=== PATIENT | female | born 1990 | race Two or more races ===

== ENCOUNTER 2017-06-30 19:53 | Emergency (ER) | payer BC ==
[2017-06-30] MEDS ORDERED: Benztropine INJ* 1 MG/ML 2 ML AMP SLOW PUSH ONE (20:56)
[2017-06-30] MEDS: NS 0.9% 1000 ML* 3,000 ML IV ONE ×3 (21:00→23:46)
[2017-06-30 21:10] LABS: ABS Basophils 0.1 10^3/ul (0-0.2); ABS Eosinophils 0.1 10^3/ul (0-0.6); ABS Lymphocytes 1.3 10^3/ul (1.0-4.8); ABS Monocytes 1.1 10^3/ul (0-0.8); ABS Neutrophils 8.5 10^3/ul (1.5-7.7); ABS Nucleated RBC 0 10^3/ul; Hematocrit 38 % (35-47); Hemoglobin 13.1 g/dl (12.0-16.0); Lymphocyte % 11.6 % (25-47); Mean Corpuscular HGB Conc 35 g/dl (31-36); Mean Corpuscular Hemoglobin 31 pg (27-31); Mean Corpuscular Volume 90 fL (80-97); Mean Platelet Volume 8 um3 (7.4-10.4); Nucleated Red Blood Cells % 0; Platelet Count 277 10^3/ul (150-450); Red Cell Distribution Width 11 % (10.5-15); White Blood Count 11.1 10^3/ul (3.5-10.8)
[2017-06-30 21:24] LABS: Urine Appearance Clear; Urine Blood Negative (Negative); Urine Color Yellow; Urine Ketones Trace (Negative); Urine Protein Negative (Negative); Urine Specific Gravity 1.011 (1.010-1.030); Urine Urobilinogen Negative (Negative)
[2017-06-30 21:24] LABS: EGFR Non-African American 94.9 (>60)
[2017-06-30 21:25] LABS: INR 1.01 (0.77-1.02)
[2017-06-30] MEDS ORDERED: Benztropine INJ* 1 MG/ML 2 ML AMP IM ONE (21:25)
--- NOTE | 2017-06-30 21:33 | RAD ---
INDICATION: Chest pain COMPARISON: Chest x-ray July 27, 2014 TECHNIQUE: Single AP portable view of the chest was obtained. FINDINGS: Image quality is compromised due to the relative inferiority of a portable chest x-ray. The heart and mediastinum exhibit normal size and contour. The lungs are grossly clear. There is no evidence of a large pleural effusion. Visualized bones are normal for the patient's age. IMPRESSION: No radiographic evidence for acute cardiopulmonary abnormality on this portable chest x-ray.
[2017-06-30] MEDS ORDERED: Magnesium Sulfate 2 GM IV* 2 GM/50 ML BAG IVPB ONE (22:55)
[2017-06-30] MEDS ORDERED: Potassium Chlor TAB* 20 MEQ TAB.ER PO ONE (22:55)
[2017-06-30] MEDS ORDERED: Magnesium Oxide TAB* 400 MG PO ONE (23:37)
--- NOTE | 2017-06-30 23:46 | ED ---
Gerry Mayorga Jennifer, scribed for Dutch León MD on 06/30/17 at 2050 . Complex/Multi-Sys Presentation - HPI Summary HPI Summary: The patient is a 26 year old female who comes to the ED with muscle paralysis that began at 16:30 today. The history was obtained from her mother. Two weeks ago, the patient fell off a ladder and was given Zipsor for the inflammation. This morning, she took Zipsor at 10:30, then felt a headache at 12:00 and took Advil. She had a strong cup of coffee at 13:00. Beginning at 16:30, the patient began to feel strange, she made odd facial movements, her limbs felt heavy, and she felt like she was going to vomit. She couldnt walk and had to lie down. Her mother additionally complains of numbness and shortness of breath. The patient takes 160 mg of Geodon every night at 22:00. She denies smoking, drug use, and engages in occasional drinking. - History Of Current Complaint Chief Complaint: EDGeneral Time Seen by Provider: 06/30/17 20:23 Hx Obtained From: Family/Meeting Specialist - Mother Onset/Duration: Sudden Onset - Today at 16:30, Still Present Timing: Constant Severity Currently: Mild Severity Initially: Mild Associated Signs And Symptoms: Positive: Other - Muscle "paralysis", odd facial movements, heavy limbs, felt like vomiting, numbness, shortness of breath, headache - Allergies/Home Medications Allergies/Adverse Reactions: Allergies Allergy/AdvReac Type Severity Reaction Status Date / Time MS Penicillins [Penicillins] Allergy Unknown See Comment Verified 05/01/12 15:23 MS Diphenhydramine Allergy Shakes Verified 12/21/15 11:02 [From Benadryl] MS Penicillin G Allergy Hives Verified 12/21/15 11:02 [Penicillin G] MS Risperidone AdvReac Unknown See Comment Verified 05/01/12 15:22 [From Risperdal] PMH/Surg Hx/FS Hx/Imm Hx Endocrine/Hematology History: Reports: Other Endocrine/Hematological Disorders - Gamal's thryoiditis Denies: Hx Anticoagulant Therapy, Hx Diabetes Cardiovascular History: Reports: Other Cardiovascular Problems/Disorders - Hx mitral valve systolic flattening & syncope, Heart murmur. 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 11/2011 [facility] [place] - Pilonidal cystectomy - Immunization History Date of Influenza Vaccine: has not received Infectious Disease History: No Infectious Disease History: Denies: Traveled Outside the [place] in Last 30 Days - Family History Known Family History: Negative: Diabetes - Social History Alcohol Use: Weekly Substance Use Type: Reports: None Smoking Status (MU): Current Some Day Smoker Review of Systems Positive: Shortness Of Breath Positive: Vomiting - Feels like she is going to vomit Neurological: Other - limbs feel heavy, odd facial movements Positive: Headache, Numbness All Other Systems Reviewed And Are Negative: Yes Physical Exam - Summary Physical Exam Summary: General: well-appearing, no pain distress. Responds to external rub for pain. Skin: warm, color reflects adequate perfusion, dry Head: normal Eyes: pupils 4 mm reactive. ENT: normal Neck: supple, nontender Respiratory: CTA, breath sounds present Cardiovascular: RRR Abdomen: soft, nontender Bowel: present Musculoskeletal: normal, strength/ROM intact Extremities: Moved arms minimally. Feet withdraw to pain. Neurological: normal, sensory/motor intact, A&O x3 Psychological: affect/mood appropriate Triage Information Reviewed: Yes Vital Signs On Initial Exam: Initial Vitals Temp Pulse Resp BP Pulse Ox 98.2 F 100 20 130/74 100 06/30/17 20:04 06/30/17 20:04 06/30/17 20:04 06/30/17 20:04 06/30/17 20:04 Vital Signs Reviewed: Yes Diagnostics - Vital Signs Vital Signs Temp Pulse Resp BP Pulse Ox 06/30/17 20:16 99 17 100 06/30/17 20:04 98.2 F 100 20 130/74 100 - Laboratory Lab Results: Lab Results 06/30/17 06/30/17 06/30/17 Range/Units 20:56 20:56 20:56 WBC (3.5-10.8) 10^3/ul RBC (4.0-5.4) 10^6/ul Hgb (12.0-16.0) g/dl Hct (35-47) % MCV (80-97) fL MCH (27-31) pg MCHC (31-36) g/dl RDW (10.5-15) % Plt Count (150-450) 10^3/ul MPV (7.4-10.4) um3 Neut % (Auto) (38-83) % Lymph % (Auto) (25-47) % [place] % (Auto) (1-9) % Eos % (Auto) (0-6) % Baso % (Auto) (0-2) % Absolute Neuts (auto) (1.5-7.7) 10^3/ul Absolute Lymphs (auto) (1.0-4.8) 10^3/ul Absolute Monos (auto) (0-0.8) 10^3/ul Absolute Eos (auto) (0-0.6) 10^3/ul Absolute Basos (auto) (0-0.2) 10^3/ul Absolute Nucleated RBC 10^3/ul Nucleated RBC % INR (Anticoag Therapy) 1.01 (0.77-1.02) APTT 28.6 (26.0-36.3) seconds Sodium 135 (133-145) mmol/L Potassium 3.3 L (3.5-5.0) mmol/L Chloride 103 (101-111) mmol/L Carbon Dioxide 23 (22-32) mmol/L Anion Gap 9 (2-11) mmol/L BUN 11 (6-24) mg/dL Creatinine 0.75 (0.51-0.95) mg/dL Est GFR ( Amer) 122.1 (>60) Est GFR (Non-Af Amer) 94.9 (>60) BUN/Creatinine Ratio 14.7 (8-20) Glucose 106 H (70-100) mg/dL Lactic Acid (0.5-2.0) mmol/L Calcium 9.3 (8.6-10.3) mg/dL Magnesium 1.8 L (1.9-2.7) mg/dL Total Bilirubin 0.50 (0.2-1.0) mg/dL AST 14 (13-39) U/L ALT 8 (7-52) U/L Alkaline Phosphatase 59 (34-104) U/L Total Creatine Kinase 42 (10-223) U/L CK-MB (CK-2) 0.6 (0.6-6.3) ng/mL Troponin I 0.00 (<0.04) ng/mL C-Reactive Protein 3.96 (< 5.00) mg/L Total Protein 7.0 (6.4-8.9) g/dL Albumin 4.4 (3.2-5.2) g/dL Globulin 2.6 (2-4) g/dL Albumin/Globulin Ratio 1.7 (1-3) Lipase 15 (11.0-82.0) U/L TSH 0.04 L (0.34-5.60) mcIU/mL Free T4 1.16 H (0.61-1.12) ng/dL Total T3 Pending Beta HCG, Quant < 0.60 mIU/mL Urine Color Urine Appearance Urine pH (5-9) Ur Specific [place] (1.010-1.030) Urine Protein (Negative) Urine Ketones (Negative) Urine Blood (Negative) Urine Nitrate (Negative) Urine Bilirubin (Negative) Urine Urobilinogen (Negative) Ur Leukocyte Esterase (Negative) Urine Glucose (Negative) Salicylates < 2.50 (<30) mg/dL Urine Opiates Screen (None Detect) Acetaminophen < 15 mcg/mL Ur Barbiturates Screen (None Detect) Valproic Acid < 13.0 L (50-100) mcg/mL Ur Phencyclidine Scrn (None Detect) Ur Amphetamines Screen (None Detect) U Benzodiazepines Scrn (None Detect) Urine Cocaine Screen (None Detect) U Cannabinoids Screen (None Detect) Serum Alcohol < 10 (<10) mg/dL 06/30/17 06/30/17 06/30/17 Range/Units 20:56 20:56 21:05 WBC 11.1 H (3.5-10.8) 10^3/ul RBC 4.20 (4.0-5.4) 10^6/ul Hgb 13.1 (12.0-16.0) g/dl Hct 38 (35-47) % MCV 90 (80-97) fL MCH 31 (27-31) pg MCHC 35 (31-36) g/dl RDW 11 (10.5-15) % Plt Count 277 (150-450) 10^3/ul MPV 8 (7.4-10.4) um3 Neut % (Auto) 76.9 (38-83) % Lymph % (Auto) 11.6 L (25-47) % [place] % (Auto) 9.7 H (1-9) % Eos % (Auto) 1.0 (0-6) % Baso % (Auto) 0.8 (0-2) % Absolute Neuts (auto) 8.5 H (1.5-7.7) 10^3/ul Absolute Lymphs (auto) 1.3 (1.0-4.8) 10^3/ul Absolute Monos (auto) 1.1 H (0-0.8) 10^3/ul Absolute Eos (auto) 0.1 (0-0.6) 10^3/ul Absolute Basos (auto) 0.1 (0-0.2) 10^3/ul Absolute Nucleated RBC 0 10^3/ul Nucleated RBC % 0 INR (Anticoag Therapy) (0.77-1.02) APTT (26.0-36.3) seconds Sodium (133-145) mmol/L Potassium (3.5-5.0) mmol/L Chloride (101-111) mmol/L Carbon Dioxide (22-32) mmol/L Anion Gap (2-11) mmol/L BUN (6-24) mg/dL Creatinine (0.51-0.95) mg/dL Est GFR ( Amer) (>60) Est GFR (Non-Af Amer) (>60) BUN/Creatinine Ratio (8-20) Glucose (70-100) mg/dL Lactic Acid 1.2 (0.5-2.0) mmol/L Calcium (8.6-10.3) mg/dL Magnesium (1.9-2.7) mg/dL Total Bilirubin (0.2-1.0) mg/dL AST (13-39) U/L ALT (7-52) U/L Alkaline Phosphatase (34-104) U/L Total Creatine Kinase (10-223) U/L CK-MB (CK-2) (0.6-6.3) ng/mL Troponin I (<0.04) ng/mL C-Reactive Protein (< 5.00) mg/L Total Protein (6.4-8.9) g/dL Albumin (3.2-5.2) g/dL Globulin (2-4) g/dL Albumin/Globulin Ratio (1-3) Lipase (11.0-82.0) U/L TSH (0.34-5.60) mcIU/mL Free T4 (0.61-1.12) ng/dL Total T3 Beta HCG, Quant mIU/mL Urine Color Urine Appearance Urine pH (5-9) Ur Specific [place] (1.010-1.030) Urine Protein (Negative) Urine Ketones (Negative) Urine Blood (Negative) Urine Nitrate (Negative) Urine Bilirubin (Negative) Urine Urobilinogen (Negative) Ur Leukocyte Esterase (Negative) Urine Glucose (Negative) Salicylates (<30) mg/dL Urine Opiates Screen None detected (None Detect) Acetaminophen mcg/mL Ur Barbiturates Screen None detected (None Detect) Valproic Acid (50-100) mcg/mL Ur Phencyclidine Scrn None detected (None Detect) Ur Amphetamines Screen None detected (None Detect) U Benzodiazepines Scrn None detected (None Detect) Urine Cocaine Screen None detected (None Detect) U Cannabinoids Screen None detected (None Detect) Serum Alcohol (<10) mg/dL 06/30/17 Range/Units 21:05 WBC (3.5-10.8) 10^3/ul RBC (4.0-5.4) 10^6/ul Hgb (12.0-16.0) g/dl Hct (35-47) % MCV (80-97) fL MCH (27-31) pg MCHC (31-36) g/dl RDW (10.5-15) % Plt Count (150-450) 10^3/ul MPV (7.4-10.4) um3 Neut % (Auto) (38-83) % Lymph % (Auto) (25-47) % [place] % (Auto) (1-9) % Eos % (Auto) (0-6) % Baso % (Auto) (0-2) % Absolute Neuts (auto) (1.5-7.7) 10^3/ul Absolute Lymphs (auto) (1.0-4.8) 10^3/ul Absolute Monos (auto) (0-0.8) 10^3/ul Absolute Eos (auto) (0-0.6) 10^3/ul Absolute Basos (auto) (0-0.2) 10^3/ul Absolute Nucleated RBC 10^3/ul Nucleated RBC % INR (Anticoag Therapy) (0.77-1.02) APTT (26.0-36.3) seconds Sodium (133-145) mmol/L Potassium (3.5-5.0) mmol/L Chloride (101-111) mmol/L Carbon Dioxide (22-32) mmol/L Anion Gap (2-11) mmol/L BUN (6-24) mg/dL Creatinine (0.51-0.95) mg/dL Est GFR ( Amer) (>60) Est GFR (Non-Af Amer) (>60) BUN/Creatinine Ratio (8-20) Glucose (70-100) mg/dL Lactic Acid (0.5-2.0) mmol/L Calcium (8.6-10.3) mg/dL Magnesium (1.9-2.7) mg/dL Total Bilirubin (0.2-1.0) mg/dL AST (13-39) U/L ALT (7-52) U/L Alkaline Phosphatase (34-104) U/L Total Creatine Kinase (10-223) U/L CK-MB (CK-2) (0.6-6.3) ng/mL Troponin I (<0.04) ng/mL C-Reactive Protein (< 5.00) mg/L Total Protein (6.4-8.9) g/dL Albumin (3.2-5.2) g/dL Globulin (2-4) g/dL Albumin/Globulin Ratio (1-3) Lipase (11.0-82.0) U/L TSH (0.34-5.60) mcIU/mL Free T4 (0.61-1.12) ng/dL Total T3 Beta HCG, Quant mIU/mL Urine Color Yellow Urine Appearance Clear Urine pH 7.0 (5-9) Ur Specific [place] 1.011 (1.010-1.030) Urine Protein Negative (Negative) Urine Ketones Trace H (Negative) Urine Blood Negative (Negative) Urine Nitrate Negative (Negative) Urine Bilirubin Negative (Negative) Urine Urobilinogen Negative (Negative) Ur Leukocyte Esterase Negative (Negative) Urine Glucose Negative (Negative) Salicylates (<30) mg/dL Urine Opiates Screen (None Detect) Acetaminophen mcg/mL Ur Barbiturates Screen (None Detect) Valproic Acid (50-100) mcg/mL Ur Phencyclidine Scrn (None Detect) Ur Amphetamines Screen (None Detect) U Benzodiazepines Scrn (None Detect) Urine Cocaine Screen (None Detect) U Cannabinoids Screen (None Detect) Serum Alcohol (<10) mg/dL Result Diagrams: 06/30/17 20:56 06/30/17 20:56 Lab Statement: Any lab studies that have been ordered have been reviewed, and results considered in the medical decision making process. - Radiology CXR Xray Interpretation: No Acute Changes - No radiographic evidence for acute cardiopulmonary abnormality on this portable chest x-ray. Dr. León has reviewed this report. Radiology Interpretation Completed By: Radiologist - EKG 20:56 Cardiac Rate: Tachycardia EKG Rhythm: Sinus Tachycardia - [address] Segment: Normal EKG Interpretation: Prolonged QT interval with QTC 596 Complex Multi-Symp Course/Dx Course Of Treatment: BP noted and advised to follow up with PCP. Allergies noted. Medications reviewed. PATIENT IMPROVED WITH IV FLUIDS. FOR THE POSSIBILITY OF A DYSTONIC REACTION, COGENTIN WAS ORDERED (PATIENT IS ALLERGIC TO BENADRYL); THE PATIENT DECLINED THE COGENTIN. WHEN THE PATIENT HAD TO URINATE, SHE HAD NO NEUROLOGIC DEFICIT. IMMEDIATELY AFTER URINATING, HER WEAKNESS SYMPTOMS RETURNED. YOLANDA WAS WITH HER DYING GRANDMOTHER TODAY. P WAVES WERE SEEN ON THE MONITOR WHEN THE HEART RATE WAS LESS THAN 100BPM. NO CRITICAL CARE TIME. - Diagnoses Provider Diagnoses: Blood pressure elevated without history of HTN, Altered mental state, Weakness Discharge - Discharge Plan Condition: Stable Disposition: HOME Patient Education Materials: Altered Mental Status (ED), Weakness (ED) Referrals: Ratna Ye MD [Primary Care Provider] - Additional Instructions: FOLLOW UP WITH YOUR DOCTOR. RETURN TO THE EMERGENCY DEPARTMENT FOR ANY WORSENING OF YOUR CONDITION OR QUESTIONS OR CONCERNS. Your blood pressure was elevated during todays visit; please follow up with your primary care provider within a week for further evaluation. The documentation as recorded by the Gerry davalos Jennifer accurately reflects the service I personally performed and the decisions made by me, Dutch León MD.
[2017-07-01 01:22] VITALS: BP 125/79
== END 2017-07-01 00:55 | disposition home or self-care (01) ==
LOC: ED 19:53
DX: R03.0 Elevated blood-pressure reading, without diagnosis of hypertension (principal); R41.82 Altered mental status, unspecified; R53.1 Weakness; F17.200 Nicotine dependence, unspecified, uncomplicated
CPT/HCPCS: 36415; 71045; 80053; 80164; 80307; 80320; 80329; 81003; 82550; 82553; 83605; 83690; 83735; 84439; 84443; 84479; 84484; 84702; 85025; 85610; 85730; 86140; 93005; 96360; 96372; 99285; A9270-GY; G0480; J0515

== ENCOUNTER 2017-07-01 17:21 | Emergency (ER) | payer BC ==
[2017-07-01 18:25] LABS: ABS Basophils 0.1 10^3/ul (0-0.2); ABS Eosinophils 0.2 10^3/ul (0-0.6); ABS Lymphocytes 1.4 10^3/ul (1.0-4.8); ABS Monocytes 0.9 10^3/ul (0-0.8); ABS Nucleated RBC 0 10^3/ul; Eosinophil % 2.9 % (0-6); Hematocrit 38 % (35-47); Hemoglobin 13.2 g/dl (12.0-16.0); Lymphocyte % 18.7 % (25-47); Mean Corpuscular HGB Conc 35 g/dl (31-36); Mean Corpuscular Hemoglobin 32 pg (27-31); Mean Corpuscular Volume 91 fL (80-97); Mean Platelet Volume 8 um3 (7.4-10.4); Nucleated Red Blood Cells % 0; Platelet Count 255 10^3/ul (150-450); Red Blood Count 4.18 10^6/ul (4.0-5.4); Red Cell Distribution Width 12 % (10.5-15); White Blood Count 7.7 10^3/ul (3.5-10.8)
[2017-07-01 18:49] LABS: EGFR Non-African American 102.8 (>60)
[2017-07-01 19:18] LABS: Urine Appearance Clear; Urine Blood Negative (Negative); Urine Color Straw; Urine Ketones Negative (Negative); Urine Protein Negative (Negative); Urine Specific Gravity 1.004 (1.010-1.030); Urine Urobilinogen Negative (Negative)
--- NOTE | 2017-07-01 20:39 | RAD ---
INDICATION: "Possible seizures, measured reaction, possible issues with IUD". Requisition notes concussion one week earlier after slip and fall injury. COMPARISON: CT of the brain June 22, 2017 TECHNIQUE: Contiguous axial sections of the brain were obtained from the skull base to the vertex without contrast. FINDINGS: The ventricles, cisterns and sulci are within normal limits. The [place]-white matter differentiation is adequately maintained and there is no sulcal effacement. No significant focal abnormality or mass effect is present. There is no evidence for intracranial hemorrhage. No significant focal osseous abnormality is present. There is very mild mucosal thickening of the visualized maxillary sinuses. The remaining paranasal sinuses are well-aerated. The mastoid air cells are well aerated bilaterally. IMPRESSION: No CT evidence of acute intracranial abnormality.
[2017-07-01] MEDS ORDERED: Ziprasidone CAP* 80 MG PO ONE (21:13)
[2017-07-01 22:46] VITALS: BP 114/58
--- NOTE | 2017-07-13 12:03 | ED ---
Ann Marie Mayorga Gabriel, scribed for Aurelio Glasgow MD on 07/01/17 at 1944 . Neurological HPI - HPI Summary HPI Summary: This patient is a 26 year old F BIBA to [facility] accompanied by her mother s/p possible seizure. Patient reports eye pressure, needles in the eyes, blurred vision, GASPAR, foggy memory, difficulty speaking, coldness inside of her chest, weakness in her extremities, pressure in her ears, trouble hearing, dizziness, CP, and tingling in her fingers. Symptoms originated when the patient fell off a ladder while she was changing a light bulb and hit her head. She was given a CT that showed no significant abnormalities although a Xray showed cervical spine spasms so she was given Zipsor. Yesterday early in the day the patient took Advil two hours after her Zipsor along with coffee and they believe this could have contributed to the following symptoms. Around 1630 yesterday the patient had weakness and wasnt able to walk then later that night while waiting for her grandmother to pass she started convulsing and fell off of a chair. She was brought into the ED and discharged but they do not feel like she was properly evaluated. Patient has had one prior seizure due to penicillin but has never had one besides that. The pt describes the seizure as whole body tremors while being unable to move and feeling like she was being pinned to the mattress. Also during the episode she states her head was twitching to one side and she had no control over her body. This occurred at 1900 last night. After being discharged her mother states she was woken up by her daughter making a loud eeee noise and displaying additional seizure activity. They believe she may be experiencing these symptoms due to increased intracranial pressure and would like that checked. Pt has not taking her Geodon for two days due to all that has been happening. - History of Current Complaint Chief Complaint: EDSeizure Stated Complaint: POSSIBLE MED REACTION Time Seen by Provider: 07/01/17 19:23 Hx Obtained From: Patient Onset/Duration: Resolved Timing: Constant Onset Severity: Moderate Current Severity: None Pain Intensity: 0 Pain Scale Used: 0-10 Numeric Syncope Context: Witnessed, Loss of Consciousness: Yes Alleviating: Spontanious Resolution Associated Signs and Symptoms: Positive: Numbness - eye pressure, needles in the eyes, blurred vision, GASPAR, foggy memory, difficulty speaking, coldness inside of her chest, weakness in her extremities, pressure in her ears, trouble hearing, dizziness, CP, and tingling in her fingers. - Additional Pertinent History Primary Care Physician: Dr. Lr - Allergy/Home Medications Allergies/Adverse Reactions: Allergies Allergy/AdvReac Type Severity Reaction Status Date / Time MS Penicillins [Penicillins] Allergy Unknown See Comment Verified 05/01/12 15:23 MS Diphenhydramine Allergy Shakes Verified 12/21/15 11:02 [From Benadryl] MS Penicillin G Allergy Hives Verified 12/21/15 11:02 [Penicillin G] MS Risperidone AdvReac Unknown See Comment Verified 05/01/12 15:22 [From Risperdal] PMH/Surg Hx/FS Hx/Imm Hx Endocrine/Hematology History: Reports: Hx Thyroid Disease, Other Endocrine/ Hematological Disorders - Gamal's thryoiditis Denies: Hx Anticoagulant Therapy, Hx Diabetes Cardiovascular History: Reports: Other Cardiovascular Problems/Disorders - Hx mitral valve systolic flattening & syncope, Heart murmur. 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 11/2011 [facility] - Pilonidal cystectomy - Immunization History Date of Influenza Vaccine: has not received Infectious Disease History: No Infectious Disease History: Denies: Traveled Outside the [place] in Last 30 Days - Family History Known Family History: Negative: Diabetes, Respiratory Disease, Seizure Disorder - Social History Occupation: Student Lives: With Family Alcohol Use: Weekly Substance Use Type: Reports: None Smoking Status (MU): Current Some Day Smoker Review of Systems Negative: Fever, Chills Eyes: Other - trouble hearing Positive: Other - eye pressure, needles in the eyes, blurred vision Positive: Other - pressure in ears . Negative: Sore Throat Positive: Chest Pain - coldness inside of her chest Negative: Shortness Of Breath, Cough Negative: Abdominal Pain, Vomiting, Nausea Negative: dysuria, hematuria Negative: Myalgia, Edema Negative: Rash Neurological: Other - GASPAR, foggy memory, difficulty speaking Positive: Weakness, Paresthesia All Other Systems Reviewed And Are Negative: Yes Physical Exam - Summary Physical Exam Summary: Constitutional: Well-developed, Well-nourished, Alert. (-) Distressed Multiple pseudo seizures during exam repeating words and arching her back, no postictal phase Skin: Warm, Dry HENT: Normocephalic; Atraumatic Eyes: Conjunctiva normal, Optic discs are sharp and nice Neck: Musculoskeletal ROM normal neck. (-) JVD, (-) Stridor, (-) Tracheal deviation Cardio: Rhythm regular, rate normal, Heart sounds normal; Intact distal pulses; The pedal pulses are 2+ and symmetric. Radial pulses are 2+ and symmetric. (-) Murmur Pulmonary/Chest wall: Effort normal. (-) Respiratory distress, (-) Wheezes, (-) Rales Abd: Soft, (-) Tenderness, (-) Distension, (-) Guarding, (-) Rebound Musculoskeletal: (-) Edema Lymph: (-) Cervical adenopathy Neuro: Alert, Oriented x3 Psych: Mood and affect Normal Triage Information Reviewed: Yes Vital Signs On Initial Exam: Initial Vitals Temp Pulse Resp BP Pulse Ox 98.5 F 86 16 122/75 98 07/01/17 17:34 07/01/17 17:34 07/01/17 17:34 07/01/17 17:34 07/01/17 17:34 Vital Signs Reviewed: Yes Diagnostics - Vital Signs Vital Signs Temp Pulse Resp BP Pulse Ox 07/01/17 17:34 98.5 F 86 16 122/75 98 - Laboratory Lab Results: Lab Results 07/01/17 07/01/17 07/01/17 Range/Units 17:46 17:46 18:11 WBC (3.5-10.8) 10^3/ul RBC (4.0-5.4) 10^6/ul Hgb (12.0-16.0) g/dl Hct (35-47) % MCV (80-97) fL MCH (27-31) pg MCHC (31-36) g/dl RDW (10.5-15) % Plt Count (150-450) 10^3/ul MPV (7.4-10.4) um3 Neut % (Auto) (38-83) % Lymph % (Auto) (25-47) % Stevens % (Auto) (1-9) % Eos % (Auto) (0-6) % Baso % (Auto) (0-2) % Absolute Neuts (auto) (1.5-7.7) 10^3/ul Absolute Lymphs (auto) (1.0-4.8) 10^3/ul Absolute Monos (auto) (0-0.8) 10^3/ul Absolute Eos (auto) (0-0.6) 10^3/ul Absolute Basos (auto) (0-0.2) 10^3/ul Absolute Nucleated RBC 10^3/ul Nucleated RBC % Sodium 135 (133-145) mmol/L Potassium 3.5 (3.5-5.0) mmol/L Chloride 106 (101-111) mmol/L Carbon Dioxide 21 L (22-32) mmol/L Anion Gap 8 (2-11) mmol/L BUN 8 (6-24) mg/dL Creatinine 0.70 (0.51-0.95) mg/dL Est GFR ( Amer) 132.2 (>60) Est GFR (Non-Af Amer) 102.8 (>60) BUN/Creatinine Ratio 11.4 (8-20) Glucose 95 (70-100) mg/dL Calcium 9.5 (8.6-10.3) mg/dL Total Bilirubin 0.70 (0.2-1.0) mg/dL AST 12 L (13-39) U/L ALT 9 (7-52) U/L Alkaline Phosphatase 52 (34-104) U/L Total Protein 7.0 (6.4-8.9) g/dL Albumin 4.3 (3.2-5.2) g/dL Globulin 2.7 (2-4) g/dL Albumin/Globulin Ratio 1.6 (1-3) TSH 0.12 L (0.34-5.60) mcIU/mL Urine Color Straw Urine Appearance Clear Urine pH 6.0 (5-9) Ur Specific [place] 1.004 L (1.010-1.030) Urine Protein Negative (Negative) Urine Ketones Negative (Negative) Urine Blood Negative (Negative) Urine Nitrate Negative (Negative) Urine Bilirubin Negative (Negative) Urine Urobilinogen Negative (Negative) Ur Leukocyte Esterase Trace H (Negative) Urine WBC (Auto) Trace(0-5/hpf) (Absent) Urine RBC (Auto) Absent (Absent) Ur Squamous Epith Cells Present H (Absent) Urine Bacteria Absent (Absent) Urine Glucose Negative (Negative) Salicylates < 2.50 (<30) mg/dL Urine Opiates Screen None detected (None Detect) Acetaminophen < 15 mcg/mL Ur Barbiturates Screen None detected (None Detect) Valproic Acid < 13.0 L (50-100) mcg/mL Ur Phencyclidine Scrn None detected (None Detect) Ur Amphetamines Screen None detected (None Detect) U Benzodiazepines Scrn None detected (None Detect) Urine Cocaine Screen None detected (None Detect) U Cannabinoids Screen None detected (None Detect) Serum Alcohol < 10 (<10) mg/dL 07/01/17 Range/Units 18:11 WBC 7.7 (3.5-10.8) 10^3/ul RBC 4.18 (4.0-5.4) 10^6/ul Hgb 13.2 (12.0-16.0) g/dl Hct 38 (35-47) % MCV 91 (80-97) fL MCH 32 H (27-31) pg MCHC 35 (31-36) g/dl RDW 12 (10.5-15) % Plt Count 255 (150-450) 10^3/ul MPV 8 (7.4-10.4) um3 Neut % (Auto) 65.8 (38-83) % Lymph % (Auto) 18.7 L (25-47) % Stevens % (Auto) 11.8 H (1-9) % Eos % (Auto) 2.9 (0-6) % Baso % (Auto) 0.8 (0-2) % Absolute Neuts (auto) 5.0 (1.5-7.7) 10^3/ul Absolute Lymphs (auto) 1.4 (1.0-4.8) 10^3/ul Absolute Monos (auto) 0.9 H (0-0.8) 10^3/ul Absolute Eos (auto) 0.2 (0-0.6) 10^3/ul Absolute Basos (auto) 0.1 (0-0.2) 10^3/ul Absolute Nucleated RBC 0 10^3/ul Nucleated RBC % 0 Sodium (133-145) mmol/L Potassium (3.5-5.0) mmol/L Chloride (101-111) mmol/L Carbon Dioxide (22-32) mmol/L Anion Gap (2-11) mmol/L BUN (6-24) mg/dL Creatinine (0.51-0.95) mg/dL Est GFR ( Amer) (>60) Est GFR (Non-Af Amer) (>60) BUN/Creatinine Ratio (8-20) Glucose (70-100) mg/dL Calcium (8.6-10.3) mg/dL Total Bilirubin (0.2-1.0) mg/dL AST (13-39) U/L ALT (7-52) U/L Alkaline Phosphatase (34-104) U/L Total Protein (6.4-8.9) g/dL Albumin (3.2-5.2) g/dL Globulin (2-4) g/dL Albumin/Globulin Ratio (1-3) TSH (0.34-5.60) mcIU/mL Urine Color Urine Appearance Urine pH (5-9) Ur Specific [place] (1.010-1.030) Urine Protein (Negative) Urine Ketones (Negative) Urine Blood (Negative) Urine Nitrate (Negative) Urine Bilirubin (Negative) Urine Urobilinogen (Negative) Ur Leukocyte Esterase (Negative) Urine WBC (Auto) (Absent) Urine RBC (Auto) (Absent) Ur Squamous Epith Cells (Absent) Urine Bacteria (Absent) Urine Glucose (Negative) Salicylates (<30) mg/dL Urine Opiates Screen (None Detect) Acetaminophen mcg/mL Ur Barbiturates Screen (None Detect) Valproic Acid (50-100) mcg/mL Ur Phencyclidine Scrn (None Detect) Ur Amphetamines Screen (None Detect) U Benzodiazepines Scrn (None Detect) Urine Cocaine Screen (None Detect) U Cannabinoids Screen (None Detect) Serum Alcohol (<10) mg/dL Result Diagrams: 07/01/17 18:11 07/01/17 18:11 Lab Statement: Any lab studies that have been ordered have been reviewed, and results considered in the medical decision making process. - CT CT Brain CT Interpretation Completed By: Radiologist - No CT evidence of acute intracranial abnormality. ED physician has reviewed this radiology report. Re-Evaluation - Re-Evaluation First Eval Re-Evaluation Time: 21:15 Change: Unchanged - Discussed CT results with patient and her mother. I discussed the possibility of a MHE for the patient and how it would be very helpful, they have both agreed this is the best route. Second Eval Re-Evaluation Time: 22:36 Change: Unchanged - Patient and mother no longer wish to have MHE and she is asking why she is being held against her will. I informed her she is not and then she requested to go home. Course/Dx - Course Assessment/Plan: This patient is a 26 year old F BIBA to [facility] accompanied by her mother s/p possible seizure. Patient reports eye pressure, needles in the eyes, blurred vision, GASPAR, foggy memory, difficulty speaking, coldness inside of her chest, weakness in her extremities, pressure in her ears, trouble hearing, dizziness, CP, and tingling in her fingers. Symptoms originated when the patient fell off a ladder while she was changing a light bulb and hit her head. She was given a CT that showed no significant abnormalities although a Xray showed cervical spine spasms so she was given Zipsor. Yesterday early in the day the patient took Advil two hours after her Zipsor along with coffee and they believe this could have contributed to the following symptoms. Around 1630 yesterday the patient had weakness and wasnt able to walk then later that night while waiting for her grandmother to pass she started convulsing and fell off of a chair. She was brought into the ED and discharged but they do not feel like she was properly evaluated. Patient has had one prior seizure due to penicillin but has never had one besides that. The pt describes the seizure as whole body tremors while being unable to move and feeling like she was being pinned to the mattress. Also during the episode she states her head was twitching to one side and she had no control over her body. This occurred at 1900 last night. After being discharged her mother states she was woken up by her daughter making a loud eeee noise and displaying additional seizure activity. They believe she may be experiencing these symptoms due to increased intracranial pressure and would like that checked. Pt has not taking her Geodon for two days due to all that has been happening. CT brain reveals, per radiologist, No CT evidence of acute intracranial abnormality. I informed the patient and her mother that she was most likely having pseudo seizures because she was able to talk, there was no recovery period, and no postictal period. Test results with no significant abnormalities. UA/bloodwork obtained. In the ED course the patient was given Geodon. Dx pseudo seizures. Patient will be discharged and follow up from PCP and psychiatrist. The patient is agreeable with this plan. - Diagnoses Provider Diagnoses: Pseudoseizures Discharge - Discharge Plan Condition: Stable Disposition: HOME Patient Education Materials: Epilepsy (ED) Referrals: Ratna Ye MD [Primary Care Provider] - 3 Days Additional Instructions: Please follow up with your private psychiatrists. RETURN TO EMERGENCY DEPARTMENT FOR ANY NEW OR WORSENING SYMPTOMS The documentation as recorded by the Ann Marie davalos Gabriel accurately reflects the service I personally performed and the decisions made by me, Aurelio Glasgow MD.
== END 2017-07-01 22:51 | disposition home or self-care (01) ==
LOC: ED 17:21
DX: F44.5 Conversion disorder with seizures or convulsions (principal); F17.200 Nicotine dependence, unspecified, uncomplicated; E06.3 Autoimmune thyroiditis; Z88.0 Allergy status to penicillin; M41.9 Scoliosis, unspecified
CPT/HCPCS: 36415; 70450; 80053; 80164; 80307; 80320; 80329; 81003; 81015; 84443; 85025; 87086; 99283; A9270-GY; G0480

== ENCOUNTER 2017-11-15 09:57 | Inpatient (IN) | payer BC ==
[2017-11-15 11:26] LABS: ABS Basophils 0 10^3/ul (0-0.2); ABS Eosinophils 0 10^3/ul (0-0.6); ABS Lymphocytes 0.7 10^3/ul (1.0-4.8); ABS Monocytes 1.1 10^3/ul (0-0.8); ABS Neutrophils 10.7 10^3/ul (1.5-7.7); ABS Nucleated RBC 0 10^3/ul; Eosinophil % 0.1 % (0-6); Hematocrit 39 % (35-47); Hemoglobin 13.6 g/dl (12.0-16.0); Lymphocyte % 5.9 % (25-47); Mean Corpuscular HGB Conc 35 g/dl (31-36); Mean Corpuscular Hemoglobin 33 pg (27-31); Mean Corpuscular Volume 93 fL (80-97); Mean Platelet Volume 9.2 um3 (7.4-10.4); Nucleated Red Blood Cells % 0.1; Platelet Count 249 10^3/ul (150-450); Red Blood Count 4.18 10^6/ul (4.00-5.40); Red Cell Distribution Width 13 % (10.5-15); White Blood Count 12.6 10^3/ul (3.5-10.8)
[2017-11-15 11:37] LABS: EGFR Non-African American 78.3 (>60)
[2017-11-15 11:45] LABS: Urine Appearance Cloudy; Urine Blood Negative (Negative); Urine Color Yellow; Urine Ketones Trace (Negative); Urine Protein 2+(100 mg/dL) (Negative); Urine Red Blood Cell 2+(6-10/hpf) (Absent); Urine Urobilinogen Negative (Negative); Urine White Blood Cell 2+(11-20/hpf) (Absent)
[2017-11-15] MEDS ORDERED: Potassium Chlor TAB* 20 MEQ TAB.ER PO ONE (12:26)
[2017-11-15] MEDS ORDERED: NS 0.9% 1000 ML* 1,000 ML IV ONE (12:26)
[2017-11-15] MEDS ORDERED: LORazepam TAB(*) 1 MG PO ONE (12:42)
[2017-11-15] MEDS ORDERED: Haloperidol TAB* 5 MG PO ONE (17:53)
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
[2017-11-15] MEDS ORDERED: Haloperidol INJ IV/IM* 5 MG/ML AMP IM ONE (19:27)
--- NOTE | 2017-11-15 19:39 | ED ---
Re-Evaluation - Re-Evaluation First Eval Re-Evaluation Time: 12:31 Change: Worse Comment: Pt is agitated and is attempting to leave. Security is outside of room. Course/Dx - Course Course Of Treatment: Pt's psychosis is escalating and she is unamenable to verbal redirection and will not take oral antipsychotic. Have ordered IM haldol as she is on a trajectory to full blown agitation and would be better served to be medicated now. - Diagnoses Provider Diagnoses: Mental health problem Discharge - Sign-Out/Discharge Documenting (check all that apply): Receiving Sign-Out Signing out patient TO: Terrance Hampton Receiving patient FROM: Heather Bolden - Discharge Plan Condition: Guarded Referrals: Ratna Ye MD [Primary Care Provider] - - Billing Disposition and Condition Condition: GUARDED
[2017-11-16] MEDS ORDERED: Haloperidol INJ IV/IM* 5 MG/ML AMP IM ONE (01:02)
[2017-11-16] MEDS ORDERED: Haloperidol TAB* 5 MG PO ONE (01:04)
[2017-11-16] MEDS ORDERED: Doxycycline (NF) 100 MG TAB PO ONE (07:46)
[2017-11-16] MEDS ORDERED: DOXYcycline CAP(*) 100 MG PO ONE (09:00)
--- NOTE | 2017-11-16 09:07 | PN ---
ED Flex Patient Progress Note Date of Service: 11/16/17 Subjective: ED Flex Day #1 for this 27 y.o. single, female with a known history of bipolar disorder who presents with confusion and guy. Objective: Disorganized, hyperverbal young female, confused, disoriented Assessment: Bipolar DO, Type I, MRE manic, severe with psychotic features Plan: Admit to the [facility] pending female bed availability Vital Signs Temp Pulse Resp BP Pulse Ox 98.7 F 101 17 111/64 99 11/15/17 20:34 11/15/17 20:34 11/15/17 20:34 11/15/17 20:34 11/15/17 20:34 Lab Results - Entire Visit 11/15/17 11/15/17 11/15/17 11:06 11:06 10:55 WBC 12.6 H RBC 4.18 Hgb 13.6 Hct 39 MCV 93 MCH 33 H MCHC 35 RDW 13 Plt Count 249 MPV 9.2 Neut % (Auto) 84.9 H Lymph % (Auto) 5.9 L [place] % (Auto) 8.8 H Eos % (Auto) 0.1 Baso % (Auto) 0.3 Absolute Neuts (auto) 10.7 H Absolute Lymphs (auto) 0.7 L Absolute Monos (auto) 1.1 H Absolute Eos (auto) 0 Absolute Basos (auto) 0 Absolute Nucleated RBC 0 Nucleated RBC % 0.1 Sodium 143 Potassium 3.2 L Chloride 108 Carbon Dioxide 24 Anion Gap 11 BUN 8 Creatinine 0.88 Est GFR ( Amer) 94.7 Est GFR (Non-Af Amer) 78.3 BUN/Creatinine Ratio 9.1 Glucose 104 H Calcium 9.9 Total Bilirubin 1.10 H AST 20 ALT 15 Alkaline Phosphatase 60 Total Protein 6.9 Albumin 4.6 Globulin 2.3 Albumin/Globulin Ratio 2.0 TSH 5.59 Beta HCG, Quant < 0.60 Urine Color Urine Appearance Urine pH Ur Specific [place] Urine Protein Urine Ketones Urine Blood Urine Nitrate Urine Bilirubin Urine Urobilinogen Ur Leukocyte Esterase Urine WBC (Auto) Urine RBC (Auto) Ur Squamous Epith Cells Calcium Oxalate Crystal Urine Bacteria Hyaline Casts Urine Glucose Salicylates < 2.50 Urine Opiates Screen None detected Acetaminophen < 15 Ur Barbiturates Screen None detected Ur Phencyclidine Scrn None detected Ur Amphetamines Screen None detected U Benzodiazepines Scrn None detected Urine Cocaine Screen None detected U Cannabinoids Screen None detected Serum Alcohol < 10 11/15/17 10:55 WBC RBC Hgb Hct MCV MCH MCHC RDW Plt Count MPV Neut % (Auto) Lymph % (Auto) [place] % (Auto) Eos % (Auto) Baso % (Auto) Absolute Neuts (auto) Absolute Lymphs (auto) Absolute Monos (auto) Absolute Eos (auto) Absolute Basos (auto) Absolute Nucleated RBC Nucleated RBC % Sodium Potassium Chloride Carbon Dioxide Anion Gap BUN Creatinine Est GFR ( Amer) Est GFR (Non-Af Amer) BUN/Creatinine Ratio Glucose Calcium Total Bilirubin AST ALT Alkaline Phosphatase Total Protein Albumin Globulin Albumin/Globulin Ratio TSH Beta HCG, Quant Urine Color Yellow Urine Appearance Cloudy Urine pH 6.0 Ur Specific [place] 1.020 Urine Protein 2+(100 mg/dl) A Urine Ketones Trace A Urine Blood Negative Urine Nitrate Negative Urine Bilirubin Negative Urine Urobilinogen Negative Ur Leukocyte Esterase Negative Urine WBC (Auto) 2+(11-20/hpf) A Urine RBC (Auto) 2+(6-10/hpf) A Ur Squamous Epith Cells Present A Calcium Oxalate Crystal Present A Urine Bacteria Absent Hyaline Casts Present A Urine Glucose 1+(50 mg/dl) A Salicylates Urine Opiates Screen Acetaminophen Ur Barbiturates Screen Ur Phencyclidine Scrn Ur Amphetamines Screen U Benzodiazepines Scrn Urine Cocaine Screen U Cannabinoids Screen Serum Alcohol
[2017-11-16] MEDS ORDERED: Zolpidem TAB* 10 MG PO ONE (09:58)
--- NOTE | 2017-11-16 14:10 | ED ---
I, Scout Jesus, scribed for Yosvany Garvey MD on 11/16/17 at 0744 . Progress - Progress Note Progress Note: The patient was signed out from Dr. Hampton awaiting mental health transfer. I evaluated the patient in flex. There was a tick on her back and one on the ABD, hair will be checked. Ticks removed with tick twister After MHE by Dr. Snyder pt will be admitted for bipolar disorder with psychotic features. - Consult/PCP Time Called: 16:20 - Additional EKG/XRAY/Consults EKG #2: NSR - at 91 BPM, nml axis, nml intervals, nml ST Re-Evaluation - Re-Evaluation First Eval Re-Evaluation Time: 12:31 Change: Worse Comment: Pt is agitated and is attempting to leave. Security is outside of room. Course/Dx - Course Course Of Treatment: Patient with acute psychosis with history of bipolar. She spent the last couple days in the [facility]. To take sure removed from her body. She underwent psychiatric evaluation and was accepted for admission by the psychiatrist. She has multiple abrasions from being in the [facility]. Given 2 tick bites gave prophylactic doxycycline and ordered Lyme. - Diagnoses Provider Diagnoses: Bipolar affective psychosis, Tick bite of abdomen, Tick bite of back, Abrasions of multiple sites Discharge - Sign-Out/Discharge Documenting (check all that apply): Discharge/Admit/Transfer, Receiving Sign-Out Receiving patient FROM: Terrance Hampton - Discharge Plan Condition: Fair [facility] [place] Referrals: Ratna Ye MD [Primary Care Provider] - - Billing Disposition and Condition Condition: FAIR Disposition: Psychiatric Facility [facility] [place] The documentation as recorded by the Ann Marie davalos Gabriel accurately reflects the service I personally performed and the decisions made by me, Yosvany Garvey MD.
[2017-11-16] MEDS ORDERED: Tetan/Diph/Pertus SYR(Tdap)* 0.5 ML SYR(BOOSTRIX) use SYR IM ONE (14:16)
[2017-11-16] MEDS ORDERED: Al Hydrox/Mg Hydrox/Simet LIQ* 30 ML UDC PO PRN (14:35)
[2017-11-16] MEDS ORDERED: chlorproMAZINE TAB* 100 MG PO PRN (15:24)
[2017-11-16] MEDS: Gabapentin CAP(*) 300 MG PO SCH (20:35)
[2017-11-16] MEDS: Docusate CAP* 100 MG PO SCH (20:36)
[2017-11-16] MEDS: Mirtazapine TAB* 15 MG PO SCH (20:36)
[2017-11-16] MEDS: DOXYcycline CAP(*) 100 MG PO SCH (20:36)
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
[2017-11-17] MEDS: DOXYcycline CAP(*) 100 MG PO SCH ×2 (10:13→21:16)
[2017-11-17] MEDS: Docusate CAP* 100 MG PO SCH ×2 (10:13→21:18)
[2017-11-17] MEDS: Vitamin THERAPEUTIC TAB PO SCH (10:13)
[2017-11-17] MEDS: Gabapentin CAP(*) 300 MG PO SCH ×2 (10:13→21:15)
--- NOTE | 2017-11-17 14:38 | PN ---
Subjective - Subjective Date of Service: 11/17/17 Service Type: 30296 Hosp care 15 min low complexity Subjective: Lita is seen in weekend coverage for NPP, Sasha Frank. The patient is difficult to arouse from sleep in her bed she has even more difficulty communicating her thoughts, appearing to be bizarre and confused. "I have two emails. I mean I'm asking...do I have two emails?" Very little of anything of any real substance can be gleaned from her speech, which is marked by increased latency and halting pace. She asked staff earlier for STD testing but cannot tell me if she's had risky sexual behaviors or substance misuse. She is allowed to go back to sleep. Objective - Appearance Appearance: Well Developed/Nourished Dysmorphic Features: No Hygiene: Normal Grooming: Disheveled - Behavior Psychomotor Activities: Abnormal-Decreased Exhibits Abnormal Movement: No - Attitude and Relatedness Attitude and Relatedness: Psychotically Related Eye Contact: Poor - Speech Quality: Unpressured Latencies: Long Quantity: Terse - Mood Patient's Decription of Mood: "Anxious" - Affect Observed Affect: Tense Affect Consistent with: Dysphoria - Thought Process Patient's Thought Process: Disorganized Thought Content: Yes Paranoid Ideation, No Passive Wish, No Suicidal Planning, No Homicidal Ideation - Sensorium Experiencing Hallucinations: No, Sensorium is Clear Type of Hallucinations: Visual: No, Auditory: No, Command: No - Level of Consciousness Level of Consciousness: Lethargic Orientation: Yes Intact, Yes Orientated to Time, Yes Orientated to Place, Yes Orientated to Person - Impulse Control Impulse Control: Poor - Insight and Judgement Insight and Judgement: Impaired - Group Participation Particating in Group Activities: No - Medication Management Medication Management Adherence: Yes Assessment - Assessment Merits Inpatient Hospitalization: For Immediate Safety, For Stabilization Inpatient DSM-V Dx: F29 Clinical Impression: 27 y.o. single, female with a documented history of bipolar disorder, PMDD and PTSD arrives on an involuntary basis with bizarre, confused and paranoid behavior resulting in an inability to meet her own needs in a less restrictive setting. Plan - Plan Treatment Plan: Name: LITA STANFORD Birthdate: 1990 [id number] The patient is on a regimen of scheduled gabapentin, prn chlorpromazine and prn mirtazapine. She remains quite impaired and would be unsafe for discharge back to the community in this condition. Continue to treat on a supervised, structured and secured setting. I will order STD testing per her earlier request. Continued Medication Management: Start Medication Medications: Current Medications Acetaminophen (Tylenol Tab*) 650 mg PO Q4H PRN PRN Reason: for pain; or Temp >101 F Al Hydrox/Mg Hydrox/Simethicone (Maalox Plus*) 30 ml PO Q4H PRN PRN Reason: INDIGESTION Chlorpromazine HCl (Thorazine Tab*) 100 mg PO Q6H PRN PRN Reason: AGITATION Last Admin: 11/17/17 11:10 Dose: 100 mg Docusate Sodium (Colace Cap*) 100 mg PO BID [facility] Last Admin: 11/17/17 10:13 Dose: 100 mg Doxycycline Hyclate (Vibramycin Cap(*)) 100 mg PO BID [facility] Stop: 11/26/17 20:59 Last Admin: 11/17/17 10:13 Dose: 100 mg Gabapentin (Neurontin Cap(*)) 300 mg PO BID [facility] Last Admin: 11/17/17 10:13 Dose: Not Given Mirtazapine (Remeron Tab*) 15 mg PO BEDTIME [facility] Last Admin: 11/16/17 20:36 Dose: Not Given Multivitamins (Theragran Tab*) 1 tab PO DAILY [facility] Last Admin: 11/17/17 10:13 Dose: 1 tab - Discharge Plan Discharge Plan: Inpatient Hospitalization Lab Results - Lab Results Lab Results: 11/15/17 11/15/17 11/15/17 10:55 10:55 11:06 WBC 12.6 H RBC 4.18 Hgb 13.6 Hct 39 MCV 93 MCH 33 H MCHC 35 RDW 13 Plt Count 249 MPV 9.2 Neut % (Auto) 84.9 H Lymph % (Auto) 5.9 L [place] % (Auto) 8.8 H Eos % (Auto) 0.1 Baso % (Auto) 0.3 Absolute Neuts (auto) 10.7 H Absolute Lymphs (auto) 0.7 L Absolute Monos (auto) 1.1 H Absolute Eos (auto) 0 Absolute Basos (auto) 0 Absolute Nucleated RBC 0 Nucleated RBC % 0.1 Sodium Potassium Chloride Carbon Dioxide Anion Gap BUN Creatinine Est GFR ( Amer) Est GFR (Non-Af Amer) BUN/Creatinine Ratio Glucose Calcium Total Bilirubin AST ALT Alkaline Phosphatase Total Protein Albumin Globulin Albumin/Globulin Ratio Triglycerides Cholesterol LDL Cholesterol HDL Cholesterol TSH Beta HCG, Quant Urine Color Yellow Urine Appearance Cloudy Urine pH 6.0 Ur Specific [place] 1.020 Urine Protein 2+(100 mg/dl) A Urine Ketones Trace A Urine Blood Negative Urine Nitrate Negative Urine Bilirubin Negative Urine Urobilinogen Negative Ur Leukocyte Esterase Negative Urine WBC (Auto) 2+(11-20/hpf) A Urine RBC (Auto) 2+(6-10/hpf) A Ur Squamous Epith Cells Present A Calcium Oxalate Crystal Present A Urine Bacteria Absent Hyaline Casts Present A Urine Glucose 1+(50 mg/dl) A Salicylates Urine Opiates Screen None detected Acetaminophen Ur Barbiturates Screen None detected Ur Phencyclidine Scrn None detected Ur Amphetamines Screen None detected U Benzodiazepines Scrn None detected Urine Cocaine Screen None detected U Cannabinoids Screen None detected Serum Alcohol 11/15/17 11/17/17 11:06 07:07 WBC RBC Hgb Hct MCV MCH MCHC RDW Plt Count MPV Neut % (Auto) Lymph % (Auto) [place] % (Auto) Eos % (Auto) Baso % (Auto) Absolute Neuts (auto) Absolute Lymphs (auto) Absolute Monos (auto) Absolute Eos (auto) Absolute Basos (auto) Absolute Nucleated RBC Nucleated RBC % Sodium 143 Potassium 3.2 L Chloride 108 Carbon Dioxide 24 Anion Gap 11 BUN 8 Creatinine 0.88 Est GFR ( Amer) 94.7 Est GFR (Non-Af Amer) 78.3 BUN/Creatinine Ratio 9.1 Glucose 104 H Calcium 9.9 Total Bilirubin 1.10 H AST 20 ALT 15 Alkaline Phosphatase 60 Total Protein 6.9 Albumin 4.6 Globulin 2.3 Albumin/Globulin Ratio 2.0 Triglycerides 50 Cholesterol 116 LDL Cholesterol 64 HDL Cholesterol 42.4 TSH 5.59 Beta HCG, Quant < 0.60 Urine Color Urine Appearance Urine pH Ur Specific [place] Urine Protein Urine Ketones Urine Blood Urine Nitrate Urine Bilirubin Urine Urobilinogen Ur Leukocyte Esterase Urine WBC (Auto) Urine RBC (Auto) Ur Squamous Epith Cells Calcium Oxalate Crystal Urine Bacteria Hyaline Casts Urine Glucose Salicylates < 2.50 Urine Opiates Screen Acetaminophen < 15 Ur Barbiturates Screen Ur Phencyclidine Scrn Ur Amphetamines Screen U Benzodiazepines Scrn Urine Cocaine Screen U Cannabinoids Screen Serum Alcohol < 10
[2017-11-17] MEDS: Mirtazapine TAB* 15 MG PO SCH (21:18)
[2017-11-18] MEDS: Docusate CAP* 100 MG PO SCH ×2 (09:00→19:48)
[2017-11-18] MEDS: Gabapentin CAP(*) 300 MG PO SCH ×2 (09:00→19:49)
[2017-11-18] MEDS: Vitamin THERAPEUTIC TAB PO SCH (09:00)
[2017-11-18] MEDS: DOXYcycline CAP(*) 100 MG PO SCH ×2 (09:00→19:48)
[2017-11-18] MEDS: Mirtazapine TAB* 15 MG PO SCH (19:45)
[2017-11-18] MEDS ORDERED: chlorproMAZINE INJ* 25 MG/ML 2 ML (50 MG) IM ONE (23:36)
[2017-11-18] MEDS ORDERED: LORazepam INJ* 2 MG/ML 1 ML VIAL IM ONE (23:36)
[2017-11-18] MEDS ORDERED: LORazepam INJ* 2 MG/ML 1 ML VIAL ONE (23:43)
[2017-11-19] MEDS ORDERED: clonazePAM TAB(*) 1 MG ONE (10:16)
[2017-11-19] MEDS: Haloperidol TAB* 5 MG PO SCH ×2 (10:18→21:58)
[2017-11-19] MEDS: Gabapentin CAP(*) 300 MG PO SCH ×2 (10:18→21:58)
[2017-11-19] MEDS: clonazePAM TAB(*) 1 MG PO SCH ×4 (10:19→22:54)
[2017-11-19] MEDS ORDERED: LORazepam INJ* 2 MG/ML 1 ML VIAL ONE (10:26)
[2017-11-19] MEDS ORDERED: Haloperidol INJ IV/IM* 5 MG/ML AMP ONE (10:26)
[2017-11-19] MEDS ORDERED: Haloperidol INJ IV/IM* 5 MG/ML AMP IM STA (10:40)
[2017-11-19] MEDS: DOXYcycline CAP(*) 100 MG PO SCH ×2 (10:40→21:04)
[2017-11-19] MEDS ORDERED: LORazepam INJ* 2 MG/ML 1 ML VIAL IM STA (10:40)
[2017-11-19] MEDS: Vitamin THERAPEUTIC TAB PO SCH (10:40)
[2017-11-19] MEDS: Docusate CAP* 100 MG PO SCH ×2 (10:40→21:58)
[2017-11-19] MEDS ORDERED: clonazePAM TAB(*) 0.5 MG PO SCH (14:00)
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
[2017-11-20] MEDS: Docusate CAP* 100 MG PO SCH ×2 (09:06→22:06)
[2017-11-20] MEDS: DOXYcycline CAP(*) 100 MG PO SCH ×2 (09:07→22:05)
[2017-11-20] MEDS: Gabapentin CAP(*) 300 MG PO SCH ×3 (09:07→22:07)
[2017-11-20] MEDS: Haloperidol TAB* 5 MG PO SCH ×2 (09:08→22:06)
[2017-11-20] MEDS: Vitamin THERAPEUTIC TAB PO SCH (09:08)
[2017-11-20] MEDS: clonazePAM TAB(*) 1 MG PO SCH ×3 (09:15→22:06)
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
[2017-11-21] MEDS: DOXYcycline CAP(*) 100 MG PO SCH (10:29)
[2017-11-21] MEDS: clonazePAM TAB(*) 1 MG PO SCH ×3 (10:29→21:41)
[2017-11-21] MEDS: Haloperidol TAB* 5 MG PO SCH ×2 (10:29→21:41)
[2017-11-21] MEDS: Vitamin THERAPEUTIC TAB PO SCH (10:29)
[2017-11-21] MEDS: Gabapentin CAP(*) 300 MG PO SCH ×2 (10:29→21:41)
[2017-11-21] MEDS: Docusate CAP* 100 MG PO SCH (10:29)
[2017-11-21] MEDS ORDERED: LORazepam TAB(*) 1 MG ONE (13:08)
[2017-11-21] MEDS ORDERED: Haloperidol INJ IV/IM* 5 MG/ML AMP ONE (13:24)
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
[2017-11-22] MEDS: Haloperidol TAB* 5 MG PO SCH ×2 (01:05→09:20)
[2017-11-22] MEDS: clonazePAM TAB(*) 1 MG PO SCH ×4 (01:05→22:50)
[2017-11-22] MEDS: Gabapentin CAP(*) 300 MG PO SCH ×3 (01:05→22:50)
[2017-11-22] MEDS: Vitamin THERAPEUTIC TAB PO SCH (09:20)
[2017-11-22] MEDS ORDERED: LORazepam TAB(*) 1 MG PO ONE (12:15)
[2017-11-22] MEDS: Acetaminophen TAB* 325 MG PO PRN (14:49)
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
--- NOTE | 2017-11-22 17:10 | RAD ---
INDICATION: Intracranial injury. Disorganized thinking COMPARISON: CT brain June 22, 2017 TECHNIQUE: Noncontrast axial source images were acquired from the skull base to the vertex. FINDINGS: Ventricles/sulci: The ventricles and cisterns are normal in size and configuration for age. Brain parenchyma: There is no focal parenchymal finding, evidence of intracranial mass, or intracranial mass effect. Intracranial hemorrhage:None. Extra-axial spaces: There are no abnormal extra axial fluid collections or evidence of extra-axial mass. Calvarium: There is no calvarial fracture or other calvarial abnormality. Scalp: There is no evidence of scalp or extracalvarial soft tissue abnormality. Paranasal sinuses/mastoid: The paranasal sinuses and mastoid air cells are clear. Other: None. IMPRESSION: NEGATIVE EXAMINATION, UNCHANGED.
--- NOTE | 2017-11-22 17:28 | PN ---
MHU: Group Therapy Note - Service Type Service Type: [id number] Group Psychotherapy - Medication Education Group: Patient joined group and was intermittently in room. Patient asked questions that were not particularly on topic.
[2017-11-22] MEDS ORDERED: LOXAPINE 25 MG PO SCH (21:00)
[2017-11-22] MEDS: Prazosin CAP* 1 MG PO SCH (22:50)
[2017-11-23] MEDS: Gabapentin CAP(*) 300 MG PO SCH ×2 (10:38→22:05)
[2017-11-23] MEDS: Vitamin THERAPEUTIC TAB PO SCH (10:38)
[2017-11-23] MEDS: clonazePAM TAB(*) 1 MG PO SCH ×3 (10:38→22:05)
[2017-11-23] MEDS: Haloperidol TAB* 5 MG PO SCH ×2 (10:42→22:05)
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
[2017-11-23] MEDS: Prazosin CAP* 1 MG PO SCH (22:05)
[2017-11-24] MEDS: clonazePAM TAB(*) 1 MG PO SCH ×3 (11:09→21:29)
[2017-11-24] MEDS: Haloperidol TAB* 5 MG PO SCH ×2 (11:09→21:29)
[2017-11-24] MEDS: Gabapentin CAP(*) 300 MG PO SCH ×2 (11:09→21:29)
[2017-11-24] MEDS: Prazosin CAP* 1 MG PO SCH (21:29)
[2017-11-25] MEDS: clonazePAM TAB(*) 1 MG PO SCH ×3 (09:46→20:43)
[2017-11-25] MEDS: Gabapentin CAP(*) 300 MG PO SCH ×2 (09:46→20:43)
[2017-11-25] MEDS: Haloperidol TAB* 5 MG PO SCH ×2 (09:46→20:43)
[2017-11-25 11:15] LABS: ABS Basophils 0.1 10^3/ul (0-0.2); ABS Eosinophils 0.1 10^3/ul (0-0.6); ABS Lymphocytes 1.1 10^3/ul (1.0-4.8); ABS Monocytes 0.9 10^3/ul (0-0.8); ABS Neutrophils 5.8 10^3/ul (1.5-7.7); ABS Nucleated RBC 0 10^3/ul; Eosinophil % 1.5 % (0-6); Hematocrit 41 % (35-47); Hemoglobin 13.8 g/dl (12.0-16.0); Lymphocyte % 14.3 % (25-47); Mean Corpuscular HGB Conc 34 g/dl (31-36); Mean Corpuscular Hemoglobin 32 pg (27-31); Mean Corpuscular Volume 95 fL (80-97); Mean Platelet Volume 8.2 um3 (7.4-10.4); Nucleated Red Blood Cells % 0; Platelet Count 296 10^3/ul (150-450); Red Blood Count 4.29 10^6/ul (4.00-5.40); Red Cell Distribution Width 13 % (10.5-15)
[2017-11-25 11:37] LABS: EGFR Non-African American 109.1 (>60)
[2017-11-25] MEDS: Prazosin CAP* 1 MG PO SCH (20:44)
[2017-11-26] MEDS: clonazePAM TAB(*) 1 MG PO SCH ×2 (10:31→14:36)
[2017-11-26] MEDS: Gabapentin CAP(*) 300 MG PO SCH ×3 (10:31→23:30)
[2017-11-26] MEDS: Haloperidol TAB* 5 MG PO SCH (10:31)
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
[2017-11-26] MEDS: chlorproMAZINE TAB* 50 MG PO PRN (17:57)
[2017-11-27] MEDS: Gabapentin CAP(*) 300 MG PO SCH ×5 (02:00→22:31)
[2017-11-27] MEDS: clonazePAM TAB(*) 1 MG PO SCH ×5 (02:00→22:30)
[2017-11-27] MEDS: Haloperidol TAB* 5 MG PO SCH ×5 (02:00→22:30)
[2017-11-27] MEDS: Prazosin CAP* 1 MG PO SCH ×3 (02:00→21:36)
[2017-11-27] MEDS ORDERED: LORazepam INJ* 2 MG/ML 1 ML VIAL IM ONE (03:37)
[2017-11-27] MEDS ORDERED: Haloperidol INJ IV/IM* 5 MG/ML AMP IM ONE (03:37)
[2017-11-27] MEDS ORDERED: Haloperidol INJ IV/IM* 5 MG/ML AMP ONE (03:45)
[2017-11-27] MEDS ORDERED: LORazepam INJ* 2 MG/ML 1 ML VIAL ONE (03:45)
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
--- NOTE | 2017-11-27 13:54 | PN ---
MHU: Group Therapy Note - Service Type Service Type: [id number] Group Psychotherapy - Cognitive Behavioral Group Therapy ( CBT):Patient presented in CBT programming as disorganized and disruptive in discussion and needed repeated redirection to attend to presented materials. Lita asked for individual conversation after group had concluded, and proceeded to visibly shake and lowered herself to the floor. She stood unassisted shortly after and engaged in a rather disorganized conversation, and abruptly ended discussion, stating "maybe you're not the right person to talk to ".
[2017-11-28] MEDS ORDERED: Magnesium Hydroxide LIQ* 30 ML UDC PO ONE (09:16)
[2017-11-28] MEDS: Gabapentin CAP(*) 300 MG PO SCH ×2 (09:53→21:02)
[2017-11-28] MEDS: clonazePAM TAB(*) 1 MG PO SCH ×3 (09:53→21:04)
[2017-11-28] MEDS: Haloperidol TAB* 5 MG PO SCH ×2 (09:53→21:04)
[2017-11-28] MEDS: Prazosin CAP* 1 MG PO SCH (21:04)
[2017-11-29] MEDS: Gabapentin CAP(*) 300 MG PO SCH ×2 (09:29→21:11)
[2017-11-29] MEDS: clonazePAM TAB(*) 1 MG PO SCH ×2 (09:30→14:38)
[2017-11-29] MEDS: Haloperidol TAB* 5 MG PO SCH (09:31)
[2017-11-29] MEDS ORDERED: Magnesium Hydroxide LIQ* 30 ML UDC PO PRN (14:05)
--- NOTE | 2017-11-29 14:13 | PN ---
Subjective - Subjective Date of Service: 11/29/17 Service Type: 06377 Hosp care 25 min moderate complexity Subjective: Lita's care was taken over this morning by this clinician from structural steel ironworker Sasha Frank due to consistent patient refusal to adhere with indicated medications. I introduced myself and explained the rationale for my involvement , namely, that the hospital will be pursuing treatment over her objection in the [facility] court system. Lita is vague, circumstantial and paranoid during our meeting, sitting on the floor over a dishevelled smattering of random papers and books. "I don't trust most of the people that work here. I'm deathly afraid of Sasha." Her thought process is non-sequitur as she describes odd, seemingly innocuous events on the unit, such as when a cleaning lady came into her room and cleaned the toilet but not the sink. Lita sees persecutorial significance in these events and believes she is unsafe on the unit. I tried to negotiate a med regimen that she would accept and she did request supplements of fish oil and lactobacillus as well as MOM for constipation. Her insight remains markedly low. She denies SI or HI. Objective - Appearance Appearance: Thin Framed Dysmorphic Features: No Hygiene: Normal Grooming: Well Kept - Behavior Psychomotor Activities: Normal Exhibits Abnormal Movement: No - Attitude and Relatedness Attitude and Relatedness: Psychotically Related Eye Contact: Poor - Speech Quality: Unpressured Latencies: Normal Quantity: Appropriate - Mood Patient's Decription of Mood: "Anxious" - Affect Observed Affect: Unvariable Affect Consistent with: Dysphoria - Thought Process Patient's Thought Process: Circumstantial Thought Content: Yes Paranoid Ideation, No Passive Wish, No Suicidal Planning, No Homicidal Ideation - Sensorium Experiencing Hallucinations: No, Sensorium is Clear Type of Hallucinations: Visual: No, Auditory: No, Command: No - Level of Consciousness Level of Consciousness: Alert Orientation: Yes Intact, Yes Orientated to Time, Yes Orientated to Place, Yes Orientated to Person - Impulse Control Impulse Control: Poor - Insight and Judgement Insight and Judgement: Impaired - Group Participation Particating in Group Activities: No - Medication Management Medication Management Adherence: No Assessment - Assessment Merits Inpatient Hospitalization: For Immediate Safety, For Stabilization Inpatient DSM-V Dx: F29 Clinical Impression: 27 y.o. single, female with a documented history of bipolar disorder, PMDD and PTSD arrives on an involuntary basis with bizarre, confused and paranoid behavior resulting in an inability to meet her own needs in a less restrictive setting. Plan - Plan Treatment Plan: Name: LITA STANFORD Birthdate: 1990 [id number] The patient is on a regimen of scheduled gabapentin, prn chlorpromazine and prazosin. We will discontinue clonazepam, haldol and prazosin and offer paliperidone oral therapy in the hopes that we can transition her to [place] formulation of this med. She remains quite impaired and would be unsafe for discharge back to the community in this condition. Continue to treat on a supervised, structured and secured setting. We will pursue Treatment Over Objection in court. Continued Medication Management: Start Medication Medications: Current Medications Acetaminophen (Tylenol Tab*) 650 mg PO Q4H PRN PRN Reason: for pain; or Temp >101 F Last Admin: 11/22/17 14:49 Dose: 650 mg Al Hydrox/Mg Hydrox/Simethicone (Maalox Plus*) 30 ml PO Q4H PRN PRN Reason: INDIGESTION Chlorpromazine HCl (Thorazine Tab*) 50 mg PO Q6H PRN PRN Reason: AGITATION Last Admin: 11/26/17 17:57 Dose: 50 mg Fish Oil (Fish Oil (Nf)) 1,000 mg PO DAILY [facility]; Protocol Gabapentin (Neurontin Cap(*)) 300 mg PO BID [facility] Last Admin: 11/29/17 09:29 Dose: 300 mg Lactobacillus Rhamnosus (Lactobacillus Acidophilus*) 1 tab PO DAILY [facility] Magnesium Hydroxide (Milk Of Magnesia Liq*) 30 ml PO Q2H PRN PRN Reason: CONSTIPATION Paliperidone (Invega Er Tab*) 3 mg PO DAILY [facility] - Discharge Plan Discharge Plan: Inpatient Hospitalization
[2017-11-30] MEDS ORDERED: FATTY ACIDS PO SCH (09:00)
[2017-11-30] MEDS ORDERED: OMEGA PO SCH (09:00)
--- NOTE | 2017-11-30 10:01 | PN ---
[facility]: Group Therapy Note - Service Type Service Type: 06630 Group Psychotherapy - late entry for 11/29/17: Medication Education Group: Patient joined group and left early. She was irritable about topic.
[2017-11-30] MEDS: Lactobacillus Acidophilus* 1 TAB PO SCH (10:10)
[2017-11-30] MEDS: Gabapentin CAP(*) 300 MG PO SCH ×2 (10:10→21:20)
[2017-11-30] MEDS: Paliperidone ER TAB* 3 MG TAB.ER PO SCH (10:11)
--- NOTE | 2017-11-30 11:18 | PN ---
Subjective - Subjective Date of Service: 11/30/17 Service Type: [id number] Hosp care 15 min low complexity Subjective: Yolanda remains odd and delusional. Again I find her in my room, fidgeting amongst several piles of paperwork strewn across her floor. She has shredded several of these and the remain in strips on the ground and in a paper bag. "Oh , you know, just going over things that are necessary to go over" she states as I inquire about her behaviors. She has refused medications again this morning and is vague, spacey and paranoid. She is somewhat argumentative on the subject of an antipsychotic medication and I do my best to explain the rationale for its use. "I don't think you should call someone psychotic because that labels them. It's better to say that they have a medical issue causing problems in their life." She has no further episodes of agitation or violence to report. Objective - Appearance Appearance: Thin Framed Dysmorphic Features: No Hygiene: Normal Grooming: Fairly Well Kept - Behavior Psychomotor Activities: Normal Exhibits Abnormal Movement: No - Attitude and Relatedness Attitude and Relatedness: Psychotically Related Eye Contact: Fair - Speech Quality: Unpressured Latencies: Normal Quantity: Appropriate - Mood Patient's Decription of Mood: "Okay" - Affect Observed Affect: Unvariable Affect Consistent with: Dysphoria - Thought Process Patient's Thought Process: Circumstantial Thought Content: Yes Paranoid Ideation, No Passive Wish, No Suicidal Planning, No Homicidal Ideation - Sensorium Experiencing Hallucinations: No, Sensorium is Clear Type of Hallucinations: Visual: No, Auditory: No, Command: No - Level of Consciousness Level of Consciousness: Alert Orientation: Yes Intact, Yes Orientated to Time, Yes Orientated to Place, Yes Orientated to Person - Impulse Control Impulse Control: Poor - Insight and Judgement Insight and Judgement: Impaired - Group Participation Particating in Group Activities: No - Medication Management Medication Management Adherence: No Assessment - Assessment Merits Inpatient Hospitalization: For Immediate Safety, For Stabilization Inpatient DSM-V Dx: F29 Clinical Impression: 27 y.o. single, female with a documented history of bipolar disorder, PMDD and PTSD arrives on an involuntary basis with bizarre, confused and paranoid behavior resulting in an inability to meet her own needs in a less restrictive setting. Plan - Plan Treatment Plan: Name: YOLANDA STANFORD Birthdate: 1990 [id number] The patient is on a regimen of scheduled gabapentin, paliperidone 3mg PO qday, fish oil and lactobacillus. She is non-adherent with these and pending Treatment Over Objection in court, which has been set for November 04 at 1: 30. She is still psychotic and dangerous to herself and others, necessitating further inpatient care. Continued Medication Management: Start Medication Medications: Current Medications Acetaminophen (Tylenol Tab*) 650 mg PO Q4H PRN PRN Reason: for pain; or Temp >101 F Last Admin: 11/22/17 14:49 Dose: 650 mg Al Hydrox/Mg Hydrox/Simethicone (Maalox Plus*) 30 ml PO Q4H PRN PRN Reason: INDIGESTION Chlorpromazine HCl (Thorazine Tab*) 50 mg PO Q6H PRN PRN Reason: AGITATION Last Admin: 11/26/17 17:57 Dose: 50 mg Fish Oil (Fish Oil (Nf)) 1,000 mg PO DAILY [facility]; Protocol Last Admin: 11/30/17 10:11 Dose: Not Given Gabapentin (Neurontin Cap(*)) 300 mg PO BID [facility] Last Admin: 11/30/17 10:10 Dose: Not Given Lactobacillus Rhamnosus (Lactobacillus Acidophilus*) 1 tab PO DAILY [facility] Last Admin: 11/30/17 10:10 Dose: Not Given Magnesium Hydroxide (Milk Of Magnesia Liq*) 30 ml PO Q2H PRN PRN Reason: CONSTIPATION Paliperidone (Invega Er Tab*) 3 mg PO DAILY [facility] Last Admin: 11/30/17 10:11 Dose: Not Given - Discharge Plan Discharge Plan: Inpatient Hospitalization
[2017-12-01] MEDS: Gabapentin CAP(*) 300 MG PO SCH ×2 (08:16→21:07)
[2017-12-01] MEDS: Lactobacillus Acidophilus* 1 TAB PO SCH (08:16)
[2017-12-01] MEDS: Paliperidone ER TAB* 3 MG TAB.ER PO SCH (08:17)
[2017-12-01] MEDS: CMC: OMEGA-3 FATTY ACIDS (NF) 1,000 MG CAP PO SCH (08:20)
[2017-12-01] MEDS ORDERED: chlorproMAZINE INJ* 25 MG/ML 2 ML (50 MG) ONE (13:48)
--- NOTE | 2017-12-01 14:43 | PN ---
Subjective - Subjective Date of Service: 12/01/17 Service Type: 67216 Hosp care 15 min low complexity Subjective: This web content writer is informed that at approximately 13:30, during a routine safety check, Yolanda was discovered by staff, seated in her room with her back to her bed and the cord of her scrubs tied tightly around her neck, leaving a reddish keri. This cord was somehow connected to a bible that she had wedged between the mattress and box of her bed. Staff report that she was extremely disorganized and tearful and kept shouting at staff to leave her alone. She refused the offer of PO stat chlorpromazine but did not resist administration of stat chlorpromazine 100mg IM times one. This clinician arrived on-site at approximately 14:00 hours and Yolanda was curled up on her bathroom floor with multiple staff trying to comfort her. She allowed me to examine her neck, which did reveal a lightly erythematous keri, but refused to allow me to assist her up and onto her bed. Asked what brought about this episode she was fairly incoherent, stating at one point "I'm hungry. I need to eat something." I requested that the staff bring in a floor mat from the quiet room and then left to document my findings in my office. Staff then alerted me at circa 14:30 that Yolanda had fallen and hit her head getting to the mat. She had refused assistance with this maneuver. When told we will need a stat head CT, she protests, "No, I need an MRI." Yolanda is assured that this test is unrelated to her Chiari Malformation and that CT is a better test for acute trauma. She agrees to this. Objective - Appearance Appearance: Thin Framed Dysmorphic Features: No Hygiene: Normal Grooming: Disheveled - Behavior Psychomotor Activities: Abnormal-Decreased Exhibits Abnormal Movement: No - Attitude and Relatedness Attitude and Relatedness: Psychotically Related Eye Contact: Poor - Speech Quality: Unpressured Latencies: Long Quantity: Terse - Mood Patient's Decription of Mood: "Terrible" - Affect Observed Affect: Labile Affect Consistent with: Dysphoria - Thought Process Patient's Thought Process: Disorganized Thought Content: Yes Suicidal Planning, Yes Paranoid Ideation, No Passive Wish, No Homicidal Ideation - Sensorium Experiencing Hallucinations: Yes Type of Hallucinations: Visual: No, Auditory: Yes, Command: No - Level of Consciousness Level of Consciousness: Agitated Orientation: Yes Intact, Yes Orientated to Time, Yes Orientated to Place, Yes Orientated to Person - Impulse Control Impulse Control: Poor - Insight and Judgement Insight and Judgement: Impaired - Group Participation Particating in Group Activities: No - Medication Management Medication Management Adherence: No - Additional Observations Comments: Neuro checks appear to be within normal limits. Assessment - Assessment Merits Inpatient Hospitalization: For Immediate Safety, For Stabilization Inpatient DSM-V Dx: F29 Clinical Impression: 27 y.o. single, female with a documented history of bipolar disorder, PMDD and PTSD arrives on an involuntary basis with bizarre, confused and paranoid behavior resulting in an inability to meet her own needs in a less restrictive setting. Plan - Plan Treatment Plan: Name: YOLANDA STANFORD Birthdate: 1990 [id number] Regarding this incident of ligature, followed by patient fall, we will place her on continuous observations and order a Stat head CT. The patient is on a regimen of scheduled gabapentin, paliperidone 3mg PO qday, fish oil and lactobacillus. She is non-adherent with these and pending Treatment Over Objection in court, which has been set for November 04 at 1:30. She is still psychotic and dangerous to herself and others, necessitating further inpatient care. Medications: Current Medications Acetaminophen (Tylenol Tab*) 650 mg PO Q4H PRN PRN Reason: for pain; or Temp >101 F Last Admin: 11/22/17 14:49 Dose: 650 mg Al Hydrox/Mg Hydrox/Simethicone (Maalox Plus*) 30 ml PO Q4H PRN PRN Reason: INDIGESTION Chlorpromazine HCl (Thorazine Tab*) 50 mg PO Q6H PRN PRN Reason: AGITATION Last Admin: 11/26/17 17:57 Dose: 50 mg Gabapentin (Neurontin Cap(*)) 300 mg PO BID [facility] Last Admin: 12/01/17 08:16 Dose: 300 mg Lactobacillus Rhamnosus (Lactobacillus Acidophilus*) 1 tab PO DAILY [facility] Last Admin: 12/01/17 08:16 Dose: 1 tab Magnesium Hydroxide (Milk Of Magnesia Liq*) 30 ml PO Q2H PRN PRN Reason: CONSTIPATION [id number] Ethyl Esters (Lovaza (Nf)) 1 gm PO DAILY [facility]; Protocol Last Admin: 12/01/17 08:20 Dose: 1 gm Paliperidone (Invega Er Tab*) 3 mg PO DAILY [facility] Last Admin: 12/01/17 08:17 Dose: 3 mg
--- NOTE | 2017-12-01 15:12 | RAD ---
INDICATION: Head injury. COMPARISON: Comparison is made with a prior CT of the brain from November 22, 2017. TECHNIQUE: Contiguous axial sections of the brain were obtained from the skull base to the vertex without contrast. FINDINGS: The ventricles, cisterns and sulci are within normal limits. No significant focal abnormality or mass effect is seen. There is no evidence for hemorrhage. No fracture is seen. There is mild mucosal thickening within the maxillary sinuses. The visualized portion of the paranasal sinuses otherwise appear clear. IMPRESSION: NO EVIDENCE FOR ACUTE INTRACRANIAL ABNORMALITY.
[2017-12-02] MEDS: Gabapentin CAP(*) 300 MG PO SCH ×2 (09:05→21:15)
[2017-12-02] MEDS: Lactobacillus Acidophilus* 1 TAB PO SCH (09:05)
[2017-12-02] MEDS: Paliperidone ER TAB* 3 MG TAB.ER PO SCH (09:06)
[2017-12-02] MEDS: CMC: OMEGA-3 FATTY ACIDS (NF) 1,000 MG CAP PO SCH (09:06)
[2017-12-02] MEDS: chlorproMAZINE TAB* 50 MG PO PRN (11:37)
--- NOTE | 2017-12-02 12:23 | PN ---
Subjective - Subjective Date of Service: 12/02/17 Service Type: 05142 Hosp care 15 min low complexity Subjective: Yolanda is awake and alert today, knows the day, date, town, county and state that she's in. She remains paranoid, yelling out earlier on the unit that she was being raped. She received PO chlorpormazine after that and appears to be tolerating it fine. I detect no evidence of EPS at this time and she has been autonomically stable throughout this admission. She does complain of headache from her falls yesterday. We called a hospitalist consult yesterday after the second fall and Dr. Jesus Manning responded, however, Yolanda refused to comply with his examination and nothing was documented. The patient states that she doesn't trust me because I've done nothing for her Arnold Chiari malformation. Yolanda is informed of my opinion that this congenital defect is likely unrelated to her psychotic symptoms. Today, she denies SI or HI. Objective - Appearance Appearance: Well Developed/Nourished, Thin Framed Dysmorphic Features: No Hygiene: Normal Grooming: Disheveled - Behavior Psychomotor Activities: Abnormal-Decreased Exhibits Abnormal Movement: No - Attitude and Relatedness Attitude and Relatedness: Psychotically Related Eye Contact: Poor - Speech Quality: Unpressured Latencies: Normal Quantity: Terse - Mood Patient's Decription of Mood: "Anxious" - Affect Observed Affect: Labile Affect Consistent with: Dysphoria - Thought Process Patient's Thought Process: Disorganized Thought Content: Yes Paranoid Ideation, No Passive Wish, No Suicidal Planning, No Homicidal Ideation - Sensorium Experiencing Hallucinations: No, Sensorium is Clear Type of Hallucinations: Visual: No, Auditory: No, Command: No - Level of Consciousness Level of Consciousness: Alert Orientation: Yes Intact, Yes Orientated to Time, Yes Orientated to Place, Yes Orientated to Person - Impulse Control Impulse Control: Poor - Insight and Judgement Insight and Judgement: Impaired - Group Participation Particating in Group Activities: No - Medication Management Medication Management Adherence: No Assessment - Assessment Merits Inpatient Hospitalization: For Immediate Safety, For Stabilization Inpatient DSM-V Dx: F29 Clinical Impression: 27 y.o. single, female with a documented history of bipolar disorder, PMDD and PTSD arrives on an involuntary basis with bizarre, confused and paranoid behavior resulting in an inability to meet her own needs in a less restrictive setting. Plan - Plan Treatment Plan: Name: YOLANDA STANFORD Birthdate: 1990 [id number] The patient remains psychotic on a regimen of scheduled gabapentin, paliperidone 3mg PO qday, fish oil and lactobacillus. She is non-adherent with these and pending Treatment Over Objection in court, which has been set for November 04 at 1:30. A review of the literature reveals only one isolated case report linking Arnold-Chiari malformation with the develepment of psychosis , and that was a patient who had developed severe hydro-syringomyelia, which is not present on this patient's neuroimaging. She is still psychotic and dangerous to herself and others, necessitating further inpatient care. Continued Medication Management: Start Medication Medications: Current Medications Acetaminophen (Tylenol Tab*) 650 mg PO Q4H PRN PRN Reason: for pain; or Temp >101 F Last Admin: 11/22/17 14:49 Dose: 650 mg Al Hydrox/Mg Hydrox/Simethicone (Maalox Plus*) 30 ml PO Q4H PRN PRN Reason: INDIGESTION Chlorpromazine HCl (Thorazine Tab*) 50 mg PO Q6H PRN PRN Reason: AGITATION Last Admin: 12/02/17 11:37 Dose: 50 mg Gabapentin (Neurontin Cap(*)) 300 mg PO BID [facility] Last Admin: 12/02/17 09:05 Dose: 300 mg Lactobacillus Rhamnosus (Lactobacillus Acidophilus*) 1 tab PO DAILY [facility] Last Admin: 12/02/17 09:05 Dose: 1 tab Magnesium Hydroxide (Milk Of Magnesia Liq*) 30 ml PO Q2H PRN PRN Reason: CONSTIPATION [id number] Ethyl Esters (Lovaza (Nf)) 1 gm PO DAILY [facility]; Protocol Last Admin: 12/02/17 09:06 Dose: 1 gm Paliperidone (Invega Er Tab*) 3 mg PO DAILY [facility] Last Admin: 12/02/17 09:06 Dose: 3 mg - Discharge Plan Discharge Plan: Inpatient Hospitalization
[2017-12-02] MEDS ORDERED: LORazepam TAB(*) 1 MG PO ONE (15:00)
[2017-12-03] MEDS: Gabapentin CAP(*) 300 MG PO SCH ×3 (01:28→21:10)
[2017-12-03] MEDS: CMC: OMEGA-3 FATTY ACIDS (NF) 1,000 MG CAP PO SCH (09:02)
[2017-12-03] MEDS: Paliperidone ER TAB* 3 MG TAB.ER PO SCH (09:02)
[2017-12-03] MEDS: Lactobacillus Acidophilus* 1 TAB PO SCH (09:02)
--- NOTE | 2017-12-03 10:55 | PN ---
Subjective - Subjective Date of Service: 12/03/17 Service Type: 80611 Hosp care 15 min low complexity Subjective: Yolanda remains paranoid and guarded with evidence of thought blocking, internal preoccupation and agitation towards staff and peers. She did adhere with the oral paliperidone this AM and over the weekend and appears to be tolerating this well. No acting out so far this morning. She denies SI or HI. Objective - Appearance Appearance: Thin Framed Dysmorphic Features: No Hygiene: Dirty Grooming: Disheveled - Behavior Psychomotor Activities: Normal Exhibits Abnormal Movement: No - Attitude and Relatedness Attitude and Relatedness: Psychotically Related Eye Contact: Poor - Speech Quality: Unpressured Latencies: Long Quantity: Terse - Mood Patient's Decription of Mood: "Okay" - Affect Observed Affect: Unvariable Affect Consistent with: Dysphoria - Thought Process Patient's Thought Process: Disorganized Thought Content: Yes Paranoid Ideation, No Passive Wish, No Suicidal Planning, No Homicidal Ideation - Sensorium Experiencing Hallucinations: Yes Type of Hallucinations: Visual: No, Auditory: Yes, Command: No - Level of Consciousness Level of Consciousness: Lethargic Orientation: Yes Intact, Yes Orientated to Time, Yes Orientated to Place, Yes Orientated to Person - Impulse Control Impulse Control: Poor - Insight and Judgement Insight and Judgement: Impaired - Group Participation Particating in Group Activities: No - Medication Management Medication Management Adherence: Partial Assessment - Assessment Merits Inpatient Hospitalization: For Immediate Safety, For Stabilization Inpatient DSM-V Dx: F29 Clinical Impression: 27 y.o. single, female with a documented history of bipolar disorder, PMDD and PTSD arrives on an involuntary basis with bizarre, confused and paranoid behavior resulting in an inability to meet her own needs in a less restrictive setting. Plan - Plan Treatment Plan: Name: YOLANDA STANFORD Birthdate: 1990 [id number] The patient remains psychotic on a regimen of scheduled gabapentin, paliperidone 3mg PO qday, fish oil and lactobacillus. She is non-adherent with these and pending Treatment Over Objection in court, which has been set for November 04 at 1:30. A review of the literature reveals only one isolated case report linking Arnold-Chiari malformation with the develepment of psychosis , and that was a patient who had developed severe hydro-syringomyelia, which is not present on this patient's neuroimaging. She is still psychotic and dangerous to herself and others, necessitating further inpatient care. Continued Medication Management: Start Medication Medications: Current Medications Acetaminophen (Tylenol Tab*) 650 mg PO Q4H PRN PRN Reason: for pain; or Temp >101 F Last Admin: 11/22/17 14:49 Dose: 650 mg Al Hydrox/Mg Hydrox/Simethicone (Maalox Plus*) 30 ml PO Q4H PRN PRN Reason: INDIGESTION Chlorpromazine HCl (Thorazine Tab*) 50 mg PO Q6H PRN PRN Reason: AGITATION Last Admin: 12/02/17 11:37 Dose: 50 mg Gabapentin (Neurontin Cap(*)) 300 mg PO BID [facility] Last Admin: 12/03/17 09:01 Dose: 300 mg Ibuprofen (Motrin Tab*) 600 mg PO Q6H PRN PRN Reason: PAIN Lactobacillus Rhamnosus (Lactobacillus Acidophilus*) 1 tab PO DAILY [facility] Last Admin: 12/03/17 09:02 Dose: 1 tab Magnesium Hydroxide (Milk Of Magnesia Liq*) 30 ml PO Q2H PRN PRN Reason: CONSTIPATION [id number] Ethyl Esters (Lovaza (Nf)) 1 gm PO DAILY [facility]; Protocol Last Admin: 12/03/17 09:02 Dose: 1 gm Paliperidone (Invega Er Tab*) 3 mg PO DAILY [facility] Last Admin: 12/03/17 09:02 Dose: 3 mg - Discharge Plan Discharge Plan: Inpatient Hospitalization
[2017-12-04] MEDS: Gabapentin CAP(*) 300 MG PO SCH ×2 (09:01→21:14)
[2017-12-04] MEDS: Paliperidone ER TAB* 3 MG TAB.ER PO SCH (09:01)
[2017-12-04] MEDS: Lactobacillus Acidophilus* 1 TAB PO SCH (09:02)
[2017-12-04] MEDS: CMC: OMEGA-3 FATTY ACIDS (NF) 1,000 MG CAP PO SCH (09:02)
--- NOTE | 2017-12-04 12:44 | PN ---
Subjective - Subjective Date of Service: 12/04/17 Service Type: 60168 Hosp care 15 min low complexity Subjective: The patient remains psychotic and paranoid. I have received emails from her uncle, Nathan Burr, who is listed on her JAMARCUS and who has several questions related to her care. I ask Yolanda if she would agree to a therapeutic family meeting with her aunt Carmen and uncle Nathan, to which she replies "I don't want them here. They've never supported me. All they care about is how they look." The patient is educated about paliperidone Sustenna and it's rationale in her treatment but she refuses consent. She denies SI or HI. Objective - Appearance Appearance: Thin Framed Dysmorphic Features: No Hygiene: Normal Grooming: Fairly Well Kept - Behavior Psychomotor Activities: Normal Exhibits Abnormal Movement: No - Attitude and Relatedness Attitude and Relatedness: Psychotically Related Eye Contact: Fair - Speech Quality: Unpressured Latencies: Long Quantity: Appropriate - Mood Patient's Decription of Mood: "Anxious" - Affect Observed Affect: Unvariable Affect Consistent with: Dysphoria - Thought Process Patient's Thought Process: Disorganized Thought Content: Yes Paranoid Ideation, No Passive Wish, No Suicidal Planning, No Homicidal Ideation - Sensorium Experiencing Hallucinations: No, Sensorium is Clear Type of Hallucinations: Visual: No, Auditory: No, Command: No - Level of Consciousness Level of Consciousness: Alert Orientation: No Intact, No Orientated to Time, No Orientated to Place, No Orientated to Person - Impulse Control Impulse Control: Tenuous - Insight and Judgement Insight and Judgement: Fair - Group Participation Particating in Group Activities: No - Medication Management Medication Management Adherence: Partial Assessment - Assessment Merits Inpatient Hospitalization: For Immediate Safety, For Stabilization Inpatient DSM-V Dx: F29 Clinical Impression: 27 y.o. single, female with a documented history of bipolar disorder, PMDD and PTSD arrives on an involuntary basis with bizarre, confused and paranoid behavior resulting in an inability to meet her own needs in a less restrictive setting. Plan - Plan Treatment Plan: Name: YOLANDA STANFORD Birthdate: 1990 [id number] The patient remains psychotic on a regimen of scheduled gabapentin, paliperidone 3mg PO qday, fish oil and lactobacillus. She is only partially adherent with these and pending Treatment Over Objection in court, which has been set for today, November 04 at 1:30. She warrants treatment with an [place]. A review of the literature reveals only one isolated case report linking Arnold- Chiari malformation with the develepment of psychosis, and that was a patient who had developed severe hydro-syringomyelia, which is not present on this patient's neuroimaging. She is still psychotic and dangerous to herself and others, necessitating further inpatient care. Continued Medication Management: Start Medication Medications: Current Medications Acetaminophen (Tylenol Tab*) 650 mg PO Q4H PRN PRN Reason: for pain; or Temp >101 F Last Admin: 11/22/17 14:49 Dose: 650 mg Al Hydrox/Mg Hydrox/Simethicone (Maalox Plus*) 30 ml PO Q4H PRN PRN Reason: INDIGESTION Chlorpromazine HCl (Thorazine Tab*) 50 mg PO Q6H PRN PRN Reason: AGITATION Last Admin: 12/02/17 11:37 Dose: 50 mg Gabapentin (Neurontin Cap(*)) 300 mg PO BID ERNESTO Last Admin: 12/04/17 09:01 Dose: 300 mg Ibuprofen (Motrin Tab*) 600 mg PO Q6H PRN PRN Reason: PAIN Lactobacillus Rhamnosus (Lactobacillus Acidophilus*) 1 tab PO DAILY ERNESTO Last Admin: 12/04/17 09:02 Dose: 1 tab Magnesium Hydroxide (Milk Of Magnesia Liq*) 30 ml PO Q2H PRN PRN Reason: CONSTIPATION [id number] Ethyl Esters (Lovaza (Nf)) 1 gm PO DAILY ERNESTO; Protocol Last Admin: 12/04/17 09:02 Dose: 1 gm Paliperidone (Invega Er Tab*) 3 mg PO DAILY ERNESTO Last Admin: 12/04/17 09:01 Dose: 3 mg - Discharge Plan Discharge Plan: Inpatient Hospitalization
[2017-12-04] MEDS ORDERED: LORazepam INJ* 2 MG/ML 1 ML VIAL IM ONE (18:55)
[2017-12-04] MEDS ORDERED: LORazepam INJ* 2 MG/ML 1 ML VIAL ONE (18:58)
[2017-12-05] MEDS: Gabapentin CAP(*) 300 MG PO SCH ×2 (09:05→20:56)
[2017-12-05] MEDS: CMC: OMEGA-3 FATTY ACIDS (NF) 1,000 MG CAP PO SCH (09:05)
[2017-12-05] MEDS: Lactobacillus Acidophilus* 1 TAB PO SCH (09:05)
[2017-12-05] MEDS: Paliperidone ER TAB* 6 MG TAB.ER PO SCH (10:27)
[2017-12-05] MEDS: Haloperidol INJ IV/IM* 5 MG/ML AMP IM SCH (10:46)
--- NOTE | 2017-12-05 11:17 | PN ---
Subjective - Subjective Date of Service: 12/05/17 Service Type: 11355 Hosp care 15 min low complexity Subjective: Yolanda is paranoid and delusional. She refused labs this morning. She accuses the famous [place] screenwriter Nareshfam Webstergene of conspiring with others to have her hospitalized and killed. "I know it sounds far-fetched, but you know it's true. I'm not taking Invega. It's a fake name for a fake medicine." After refusing the 6mg dose of paliperidone, she is given 5mg of IM haloperidol per rubber liner's orders. She denies SI or HI. Objective - Appearance Appearance: Thin Framed Dysmorphic Features: No Hygiene: Normal Grooming: Disheveled - Behavior Psychomotor Activities: Normal Exhibits Abnormal Movement: No - Attitude and Relatedness Attitude and Relatedness: Psychotically Related Eye Contact: Poor - Speech Quality: Unpressured Latencies: Long Quantity: Terse - Mood Patient's Decription of Mood: "Angry" - Affect Observed Affect: Labile Affect Consistent with: Dysphoria - Thought Process Patient's Thought Process: Disorganized Thought Content: Yes Paranoid Ideation, No Passive Wish, No Suicidal Planning, No Homicidal Ideation - Sensorium Experiencing Hallucinations: No, Sensorium is Clear Type of Hallucinations: Visual: No, Auditory: No, Command: No - Level of Consciousness Level of Consciousness: Alert Orientation: Yes Intact, Yes Orientated to Time, Yes Orientated to Place, Yes Orientated to Person - Impulse Control Impulse Control: Poor - Insight and Judgement Insight and Judgement: Impaired - Group Participation Particating in Group Activities: No - Medication Management Medication Management Adherence: No Assessment - Assessment Merits Inpatient Hospitalization: For Immediate Safety, For Stabilization Inpatient DSM-V Dx: F29 Clinical Impression: 27 y.o. single, female with a documented history of bipolar disorder, PMDD and PTSD arrives on an involuntary basis with bizarre, confused and paranoid behavior resulting in an inability to meet her own needs in a less restrictive setting. Plan - Plan Treatment Plan: Name: YOLANDA STANFORD Birthdate: 1990 [id number] The patient remains psychotic on a regimen of scheduled gabapentin, paliperidone 3mg PO qday, fish oil and lactobacillus. She is refusing the 6mg dose of paliperidone and I think we should initiate the [place] version of this tomorrow, per rubber liner's TOO order. She is still psychotic and dangerous to herself and others, necessitating further inpatient care. Continued Medication Management: Start Medication Medications: Current Medications Acetaminophen (Tylenol Tab*) 650 mg PO Q4H PRN PRN Reason: for pain; or Temp >101 F Last Admin: 11/22/17 14:49 Dose: 650 mg Al Hydrox/Mg Hydrox/Simethicone (Maalox Plus*) 30 ml PO Q4H PRN PRN Reason: INDIGESTION Chlorpromazine HCl (Thorazine Tab*) 50 mg PO Q6H PRN PRN Reason: AGITATION Last Admin: 12/02/17 11:37 Dose: 50 mg Gabapentin (Neurontin Cap(*)) 300 mg PO BID [facility] Last Admin: 12/05/17 09:05 Dose: 300 mg Haloperidol Lactate (Haldol Inj Iv/Im*) 5 mg IM DAILY [facility] Last Admin: 12/05/17 10:46 Dose: 5 mg Ibuprofen (Motrin Tab*) 600 mg PO Q6H PRN PRN Reason: PAIN Lactobacillus Rhamnosus (Lactobacillus Acidophilus*) 1 tab PO DAILY [facility] Last Admin: 12/05/17 09:05 Dose: 1 tab Magnesium Hydroxide (Milk Of Magnesia Liq*) 30 ml PO Q2H PRN PRN Reason: CONSTIPATION Hmwiy-1-Iiid Ethyl Esters (Lovaza (Nf)) 1 gm PO DAILY [facility]; Protocol Last Admin: 12/05/17 09:05 Dose: 1 gm Paliperidone (Invega Er Tab*) 6 mg PO DAILY [facility] Last Admin: 12/05/17 10:27 Dose: Not Given - Discharge Plan Discharge Plan: Inpatient Hospitalization
[2017-12-05] MEDS: Ibuprofen TAB* 600 MG PO PRN (20:56)
[2017-12-06 07:13] LABS: ABS Basophils 0.1 10^3/ul (0-0.2); ABS Eosinophils 0.2 10^3/ul (0-0.6); ABS Lymphocytes 0.9 10^3/ul (1.0-4.8); ABS Monocytes 0.7 10^3/ul (0-0.8); ABS Neutrophils 6.2 10^3/ul (1.5-7.7); ABS Nucleated RBC 0 10^3/ul; Eosinophil % 2.3 % (0-6); Hematocrit 37 % (35-47); Hemoglobin 12.7 g/dl (12.0-16.0); Lymphocyte % 10.9 % (25-47); Mean Corpuscular HGB Conc 34 g/dl (31-36); Mean Corpuscular Hemoglobin 33 pg (27-31); Mean Corpuscular Volume 96 fL (80-97); Mean Platelet Volume 8.7 um3 (7.4-10.4); Nucleated Red Blood Cells % 0; Platelet Count 258 10^3/ul (150-450); Red Blood Count 3.86 10^6/ul (4.00-5.40); Red Cell Distribution Width 13 % (10.5-15); White Blood Count 7.9 10^3/ul (3.5-10.8)
[2017-12-06 07:41] LABS: EGFR Non-African American 126.7 (>60)
[2017-12-06] MEDS: CMC: OMEGA-3 FATTY ACIDS (NF) 1,000 MG CAP PO SCH (09:04)
[2017-12-06] MEDS: Haloperidol INJ IV/IM* 5 MG/ML AMP IM SCH (09:15)
[2017-12-06] MEDS: Gabapentin CAP(*) 300 MG PO SCH ×2 (09:15→22:14)
[2017-12-06] MEDS: Lactobacillus Acidophilus* 1 TAB PO SCH (09:17)
[2017-12-06] MEDS: Paliperidone ER TAB* 6 MG TAB.ER PO SCH (09:17)
[2017-12-06] MEDS ORDERED: Paliperidone SUSTENNA* 234 MG/1.5 ML IM ONE (10:08)
--- NOTE | 2017-12-06 16:20 | PN ---
MHU: Group Therapy Note - Service Type Service Type: [id number] Group Psychotherapy - Medication Education Group: Patient joined group and left early. Patient asked questions that were not particularly on topic.
[2017-12-07] MEDS: Gabapentin CAP(*) 300 MG PO SCH ×2 (09:26→20:55)
[2017-12-07] MEDS: Lactobacillus Acidophilus* 1 TAB PO SCH (09:26)
[2017-12-07] MEDS: Paliperidone ER TAB* 6 MG TAB.ER PO SCH (09:27)
[2017-12-07] MEDS: CMC: OMEGA-3 FATTY ACIDS (NF) 1,000 MG CAP PO SCH (09:27)
[2017-12-07] MEDS: Haloperidol INJ IV/IM* 5 MG/ML AMP IM SCH (09:41)
[2017-12-07] MEDS: Acetaminophen TAB* 325 MG PO PRN (13:54)
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
[2017-12-07] MEDS: Ibuprofen TAB* 600 MG PO PRN (20:54)
[2017-12-08] MEDS: Gabapentin CAP(*) 300 MG PO SCH ×2 (09:20→20:12)
[2017-12-08] MEDS: Lactobacillus Acidophilus* 1 TAB PO SCH (09:20)
[2017-12-08] MEDS: CMC: OMEGA-3 FATTY ACIDS (NF) 1,000 MG CAP PO SCH (09:21)
[2017-12-08] MEDS: chlorproMAZINE TAB* 50 MG PO PRN (20:54)
[2017-12-09] MEDS: Gabapentin CAP(*) 300 MG PO SCH ×2 (14:04→20:12)
[2017-12-09] MEDS: CMC: OMEGA-3 FATTY ACIDS (NF) 1,000 MG CAP PO SCH (14:04)
[2017-12-09] MEDS: Lactobacillus Acidophilus* 1 TAB PO SCH (14:04)
[2017-12-09] MEDS: Ibuprofen TAB* 600 MG PO PRN (17:41)
[2017-12-10] MEDS: Ibuprofen TAB* 600 MG PO PRN (01:09)
[2017-12-10] MEDS ORDERED: diPHENhydraMINE IV* 50 MG/ML 1 ml VIAL (BENADRYL) ONE (01:34)
[2017-12-10] MEDS ORDERED: chlorproMAZINE INJ* 25 MG/ML 2 ML (50 MG) ONE ×2 (01:39→12:40)
[2017-12-10] MEDS ORDERED: Paliperidone SUSTENNA* 156 MG/1 ML IM ONE (09:00)
[2017-12-10] MEDS: CMC: OMEGA-3 FATTY ACIDS (NF) 1,000 MG CAP PO SCH (10:12)
[2017-12-10] MEDS: Lactobacillus Acidophilus* 1 TAB PO SCH (10:12)
[2017-12-10] MEDS: Gabapentin CAP(*) 300 MG PO SCH ×2 (10:53→21:19)
[2017-12-10] MEDS ORDERED: chlorproMAZINE TAB* 50 MG PO ONE (12:40)
--- NOTE | 2017-12-10 15:48 | PN ---
Subjective - Subjective Date of Service: 12/10/17 Service Type: 74032 Hosp care 25 min moderate complexity Subjective: Patient was seen by self, discussed with treatment team, chart was reviewed. Patient has been resisting compliance with her medications, no reported side effects. Patient reportedly has been acting out and oppositional with staff. As per team constant observation has been non therapeutic at this time and patient has not been a danger to self. Patient do have continued struggle with emotional dysregulation and distressful memories. Patient was not cooperative with provider today during the interview with intense loud tantrum and refusing to cooperate with interview other than providing what she wants and dismissing need for medication management. 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 But later on patient was able to use her extremities without difficulty. Patient eating has been ok. Patient has been uncooperative with staff. Patient behavior has not exhibited any self injurious concerns. Patient mood appears to be unstable with psychotic and delusional thinking showing some improvement. Patient has been reporting no suicidal or homicidal ideation. No hallucinations. Objective - Appearance Appearance: Thin Framed Dysmorphic Features: No Grooming: Disheveled - Behavior Psychomotor Activities: Abnormal-Increased Exhibits Abnormal Movement: Yes - Attitude and Relatedness Attitude and Relatedness: Psychotically Related Eye Contact: Poor - Speech Quality: Unpressured Latencies: Long Quantity: Copious - Mood Patient's Decription of Mood: "Angry" - Affect Observed Affect: Labile - Thought Process Patient's Thought Process: Disorganized Thought Content: Yes Paranoid Ideation, No Passive Wish, No Suicidal Planning, No Homicidal Ideation - Sensorium Experiencing Hallucinations: No, Sensorium is Clear Type of Hallucinations: Visual: No, Auditory: No, Command: No - Level of Consciousness Level of Consciousness: Alert Orientation: Yes Intact, Yes Orientated to Time, Yes Orientated to Place, Yes Orientated to Person - Impulse Control Impulse Control: Poor - Insight and Judgement Insight and Judgement: Poor - Group Participation Particating in Group Activities: No - Medication Management Medication Management Adherence: Partial Assessment - Assessment Inpatient DSM-V Dx: F29 Clinical Impression: Patient with 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 Patient currently admitted due to worsening of her symptoms and has not been consistent with her compliance. Patient has also been uncooperative with treatment plan and treatment was taken to the court for treatment over objection. Patient is a danger to self if discharged hence medications are being adjusted and symptoms will be stabilized on inpatient. Plan - Plan Treatment Plan: Name: YOLANDA STANFORD Birthdate: 1990 [id number] Patient will be continued with current medications, was given Invega Sustena IM 156 mg given today. Continue with other medications. Lab work was ordered for lyme titers and TEGAN as suggested by Neurologist. EEG will be held until patient is showing fair control in her behavior. Will continue to monitor for improvement and side effects. patient encouraged to participate in groups, milieu and individual therapy. Medications: Current Medications Acetaminophen (Tylenol Tab*) 650 mg PO Q4H PRN PRN Reason: for pain; or Temp >101 F Last Admin: 12/07/17 13:54 Dose: 650 mg Al Hydrox/Mg Hydrox/Simethicone (Maalox Plus*) 30 ml PO Q4H PRN PRN Reason: INDIGESTION Chlorpromazine HCl (Thorazine Tab*) 50 mg PO Q6H PRN PRN Reason: AGITATION Last Admin: 12/08/17 20:54 Dose: 50 mg Gabapentin (Neurontin Cap(*)) 300 mg PO BID ERNESTO Last Admin: 12/10/17 10:53 Dose: 300 mg Ibuprofen (Motrin Tab*) 600 mg PO Q6H PRN PRN Reason: PAIN Last Admin: 12/10/17 01:09 Dose: 600 mg Lactobacillus Rhamnosus (Lactobacillus Acidophilus*) 1 tab PO DAILY ERNESTO Last Admin: 12/10/17 10:12 Dose: Not Given Magnesium Hydroxide (Milk Of Magnesia Liq*) 30 ml PO Q2H PRN PRN Reason: CONSTIPATION Qkijm-0-Lcen Ethyl Esters (Lovaza (Nf)) 1 gm PO DAILY ERNESTO; Protocol Last Admin: 12/10/17 10:12 Dose: Not Given
[2017-12-11] MEDS: Lactobacillus Acidophilus* 1 TAB PO SCH (09:40)
[2017-12-11] MEDS: CMC: OMEGA-3 FATTY ACIDS (NF) 1,000 MG CAP PO SCH (09:40)
[2017-12-11] MEDS: Gabapentin CAP(*) 300 MG PO SCH ×2 (09:47→21:48)
--- NOTE | 2017-12-11 14:37 | PN ---
Subjective - Subjective Date of Service: 12/11/17 Service Type: 68311 Hosp care 25 min moderate complexity Subjective: Patient was seen by self, discussed with treatment team, chart was reviewed. Patient has been more compliance with her treatment, no reported side effects. Patient reportedly has been more regulated in her emotions. Patient has been managing Q15 min observation well without difficulty. Patient behavior has been in better control and did not engage in any behavior danger to self and others. Patient do have continued struggle with emotional dysregulation and distressful memories and has been attending some therapy sessions. Patient yesterday required IM Thorazine for agitated and emotionally deregulated behavior, was yelling and screaming loud, but today showed improvement. Patient sleeping and eating has been ok. Patient has been more cooperative with staff but fluctuates. Patient behavior has not exhibited any self injurious concerns. Patient mood appears to be unstable with less psychotic and delusional thinking showing continued improvement. Patient has been reporting no suicidal or homicidal ideation. No hallucinations. Objective - Appearance Appearance: Healthy Appearing, Thin Framed Dysmorphic Features: No Hygiene: Normal Grooming: Fairly Well Kept - Behavior Psychomotor Activities: Normal - patient was clenching his hands when talking about past memories Exhibits Abnormal Movement: Yes - Attitude and Relatedness Attitude and Relatedness: Cooperative - more than yesterday Eye Contact: Fair - Speech Quality: Unpressured Latencies: Long - at times Quantity: Appropriate - Mood Patient's Decription of Mood: "Okay" - Affect Observed Affect: Labile Affect Consistent with: Dysphoria - Thought Process Patient's Thought Process: Circumstantial Thought Content: No Passive Wish, No Suicidal Planning, No Homicidal Ideation, No Paranoid Ideation - Sensorium Experiencing Hallucinations: No, Sensorium is Clear Type of Hallucinations: Visual: No, Auditory: No, Command: No - Level of Consciousness Level of Consciousness: Alert Orientation: Yes Intact, Yes Orientated to Time, Yes Orientated to Place, Yes Orientated to Person - Impulse Control Impulse Control: Impaired - Insight and Judgement Insight and Judgement: Poor - Group Participation Particating in Group Activities: Yes - Medication Management Medication Management Adherence: Yes Assessment - Assessment Inpatient DSM-V Dx: F29 Clinical Impression: Patient with 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 Patient currently admitted due to worsening of her symptoms and has not been consistent with her compliance. Patient has also been uncooperative with treatment plan and treatment was taken to the court for treatment over objection. Patient is a danger to self if discharged hence medications are being adjusted and symptoms will be stabilized on inpatient. Plan - Plan Treatment Plan: Name: YOLANDA STANFORD Birthdate: 1990 [id number] Patient will be continued with current medications, was given Invega Sustena IM 156 mg given today. Continue with other medications. Lab work was ordered for lyme titers and TEGAN as suggested by Neurologist. EEG will be held until patient is showing fair control in her behavior. Will continue to monitor for improvement and side effects. patient encouraged to participate in groups, milieu and individual therapy. Medications: Current Medications Acetaminophen (Tylenol Tab*) 650 mg PO Q4H PRN PRN Reason: for pain; or Temp >101 F Last Admin: 12/07/17 13:54 Dose: 650 mg Al Hydrox/Mg Hydrox/Simethicone (Maalox Plus*) 30 ml PO Q4H PRN PRN Reason: INDIGESTION Chlorpromazine HCl (Thorazine Tab*) 50 mg PO Q6H PRN PRN Reason: AGITATION Last Admin: 12/08/17 20:54 Dose: 50 mg Gabapentin (Neurontin Cap(*)) 300 mg PO BID ERNESTO Last Admin: 12/11/17 09:47 Dose: Not Given Ibuprofen (Motrin Tab*) 600 mg PO Q6H PRN PRN Reason: PAIN Last Admin: 12/10/17 01:09 Dose: 600 mg Lactobacillus Rhamnosus (Lactobacillus Acidophilus*) 1 tab PO DAILY ERNESTO Last Admin: 12/11/17 09:40 Dose: Not Given Magnesium Hydroxide (Milk Of Magnesia Liq*) 30 ml PO Q2H PRN PRN Reason: CONSTIPATION Xaurh-2-Ykyi Ethyl Esters (Lovaza (Nf)) 1 gm PO DAILY ERNESTO; Protocol Last Admin: 12/11/17 09:40 Dose: Not Given
--- NOTE | 2017-12-11 14:49 | PN ---
MHU: Group Therapy Note - Service Type Service Type: [id number] Group Psychotherapy - Cognitive behavioral group note: Lita was able to be attentive to discussion in programming this morning without exhibiting emotional or behavioral agitation. She responded briefly to direct prompting to engage in discussion.
[2017-12-12] MEDS: Lactobacillus Acidophilus* 1 TAB PO SCH (09:49)
[2017-12-12] MEDS: Gabapentin CAP(*) 300 MG PO SCH ×2 (09:49→21:00)
[2017-12-12] MEDS: CMC: OMEGA-3 FATTY ACIDS (NF) 1,000 MG CAP PO SCH (09:49)
--- NOTE | 2017-12-12 13:05 | PN ---
Subjective - Subjective Date of Service: 12/12/17 Service Type: [id number] [facility] care 15 min low complexity Subjective: Patient was seen by self, discussed with treatment team, chart was reviewed. Patient has been compliant with her medications, no reported side effects. Patient continued to be labile, irritable and dysphoric and being tearful, getting easily agitated, using foul language. Patient continues to be disorganized and delusional in her thinking process with some improvement. Patient sleeping has been better and improving. Patient eating has been fair but yesterday reportedly threw her food in the garbage bin. Patient has been fluctuating with her cooperativeness with staff. Patient behavior has been in control for the most part other than periods of irritability and agitation. But patient did not require any IM medications. Patient has been reporting no suicidal or homicidal ideation. Objective - Appearance Appearance: Thin Framed Dysmorphic Features: No Hygiene: Normal Grooming: Fairly Well Kept - Behavior Psychomotor Activities: Abnormal-Increased Exhibits Abnormal Movement: No - Attitude and Relatedness Attitude and Relatedness: Psychotically Related Eye Contact: Poor - Speech Quality: Unpressured Latencies: Long Quantity: Copious - loud in tone and volume - Mood Patient's Decription of Mood: "I don't know" - Affect Observed Affect: Labile Affect Consistent with: Dysphoria - to being very irritable - Thought Process Patient's Thought Process: Disorganized - mostly with some improvement and goal directed thoughts Thought Content: No Passive Wish, No Suicidal Planning, No Homicidal Ideation, No Paranoid Ideation - Sensorium Type of Hallucinations: Visual: No, Auditory: No, Command: No - Level of Consciousness Level of Consciousness: Agitated Orientation: Yes Intact, Yes Orientated to Time, Yes Orientated to Place, Yes Orientated to Person - Impulse Control Impulse Control: Poor - Insight and Judgement Insight and Judgement: Poor - Medication Management Medication Management Adherence: Yes Assessment - Assessment Inpatient DSM-V Dx: F29 Clinical Impression: 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 Patient currently admitted due to worsening of her symptoms and has not been consistent with her compliance. Patient has also been uncooperative with treatment plan and treatment was taken to the court for treatment over objection. Patient is a danger to self if discharged hence medications are being adjusted and symptoms will be stabilized on inpatient. Plan - Plan Treatment Plan: Name: YOLANDA STANFORD Birthdate: 1990 [id number] Patient will be continued with current medications, was given Invega Sustena IM 156 mg given today. Continue with other medications. Lab work was ordered for lyme titers and TEGAN as suggested by Neurologist. EEG will be held until patient is showing fair control in her behavior. Will continue to monitor for improvement and side effects. patient encouraged to participate in groups, milieu and individual therapy. Medications: Current Medications Acetaminophen (Tylenol Tab*) 650 mg PO Q4H PRN PRN Reason: for pain; or Temp >101 F Last Admin: 12/07/17 13:54 Dose: 650 mg Al Hydrox/Mg Hydrox/Simethicone (Maalox Plus*) 30 ml PO Q4H PRN PRN Reason: INDIGESTION Chlorpromazine HCl (Thorazine Tab*) 50 mg PO Q6H PRN PRN Reason: AGITATION Last Admin: 12/08/17 20:54 Dose: 50 mg Divalproex Sodium (Depakote Er Tab(*)) 1,000 mg PO BEDTIME ERNESTO Gabapentin (Neurontin Cap(*)) 300 mg PO BID ERNESTO Last Admin: 12/12/17 09:49 Dose: Not Given Ibuprofen (Motrin Tab*) 600 mg PO Q6H PRN PRN Reason: PAIN Last Admin: 12/10/17 01:09 Dose: 600 mg Lactobacillus Rhamnosus (Lactobacillus Acidophilus*) 1 tab PO DAILY [facility] Last Admin: 12/12/17 09:49 Dose: Not Given Magnesium Hydroxide (Milk Of Magnesia Liq*) 30 ml PO Q2H PRN PRN Reason: CONSTIPATION Rhfax-[id number] Ethyl Esters (Lovaza (Nf)) 1 gm PO DAILY [facility]; Protocol Last Admin: 12/12/17 09:49 Dose: Not Given
[2017-12-12] MEDS: Divalproex ER TAB(*) 500 MG PO SCH (21:00)
[2017-12-13] MEDS: Lactobacillus Acidophilus* 1 TAB PO SCH (08:48)
[2017-12-13] MEDS: Gabapentin CAP(*) 300 MG PO SCH (08:48)
[2017-12-13] MEDS: CMC: OMEGA-3 FATTY ACIDS (NF) 1,000 MG CAP PO SCH (08:48)
--- NOTE | 2017-12-13 12:33 | PN ---
Subjective - Subjective Date of Service: 12/13/17 Service Type: [id number] [facility] care 15 min low complexity Subjective: Patient was seen by self, discussed with treatment team, chart was reviewed. Patient has been partially compliant with her treatment resistant to her medications, no reported side effects. Patient reporting symptoms of emotional deregulation and nightmares but when given psychoeducation and instructed about getting some help from medication. Patient rejected that and is very paranoid. Patient continued to be labile, irritable and dysphoric, less tearful today, getting easily agitated, using foul language. Patient continues to be disorganized and delusional in her thinking process with minimal improvement. Patient sleeping has been better and improving. Patient eating has been ok. Patient has been fluctuating with her cooperativeness with staff. Patient behavior has been in control for the most part other than periods of irritability and agitation. But patient did not require any IM medications. Patient has been reporting no suicidal or homicidal ideation. Objective - Appearance Appearance: Thin Framed Dysmorphic Features: No Grooming: Disheveled - Behavior Psychomotor Activities: Normal Exhibits Abnormal Movement: No - Attitude and Relatedness Attitude and Relatedness: Psychotically Related Eye Contact: Poor - Speech Quality: Unpressured Latencies: Long Quantity: Terse - Mood Patient's Decription of Mood: "Okay" - Affect Observed Affect: Labile Affect Consistent with: Dysphoria - Thought Process Patient's Thought Process: Disorganized Thought Content: Yes Paranoid Ideation, No Passive Wish, No Suicidal Planning, No Homicidal Ideation - Sensorium Experiencing Hallucinations: No, Sensorium is Clear Type of Hallucinations: Visual: No, Auditory: No, Command: No - Level of Consciousness Level of Consciousness: Alert Orientation: Yes Intact, Yes Orientated to Time, Yes Orientated to Place, Yes Orientated to Person - Impulse Control Impulse Control: Poor - Group Participation Particating in Group Activities: Yes - Medication Management Medication Management Adherence: Partial Assessment - Assessment Inpatient DSM-V Dx: F29 Clinical Impression: 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 Patient currently admitted due to worsening of her symptoms and has not been consistent with her compliance. Patient has also been uncooperative with treatment plan and treatment was taken to the court for treatment over objection. Patient is a danger to self if discharged hence medications are being adjusted and symptoms will be stabilized on inpatient. Plan - Plan Treatment Plan: Name: YOLANDA STANFORD Birthdate: 1990 [id number] Patient will be continued with current medications, was given Invega Sustena IM 156 mg 12/10/17. Continue with other medications and was encouraged to comply with Depakote to help with her mood and behavioral dysregulation. Lab work was ordered for lyme titers and TEGAN but patient has been refusing it. Will continue to monitor for improvement and side effects. Will transfer patient to a state facility for further stabilization. patient encouraged to participate in groups, milieu and individual therapy. Medications: Current Medications Acetaminophen (Tylenol Tab*) 650 mg PO Q4H PRN PRN Reason: for pain; or Temp >101 F Last Admin: 12/07/17 13:54 Dose: 650 mg Al Hydrox/Mg Hydrox/Simethicone (Maalox Plus*) 30 ml PO Q4H PRN PRN Reason: INDIGESTION Chlorpromazine HCl (Thorazine Tab*) 50 mg PO Q6H PRN PRN Reason: AGITATION Last Admin: 12/08/17 20:54 Dose: 50 mg Divalproex Sodium (Depakote Er Tab(*)) 1,000 mg PO BEDTIME ERNESTO Last Admin: 12/12/17 21:00 Dose: Not Given Gabapentin (Neurontin Cap(*)) 300 mg PO BID ERNESTO Last Admin: 12/13/17 08:48 Dose: Not Given Ibuprofen (Motrin Tab*) 600 mg PO Q6H PRN PRN Reason: PAIN Last Admin: 12/10/17 01:09 Dose: 600 mg Lactobacillus Rhamnosus (Lactobacillus Acidophilus*) 1 tab PO DAILY ERNESTO Last Admin: 12/13/17 08:48 Dose: Not Given Magnesium Hydroxide (Milk Of Magnesia Liq*) 30 ml PO Q2H PRN PRN Reason: CONSTIPATION [id number]-8-[id number] Ethyl Esters (Lovaza (Nf)) 1 gm PO DAILY [facility]; Protocol Last Admin: 12/13/17 08:48 Dose: Not Given
--- NOTE | 2017-12-13 16:22 | PN ---
MHU: Group Therapy Note - Service Type Service Type: [id number] Group Psychotherapy - Group Participation Patient Participating in Group: No Level of Group Participation: Attentive, Non-participatory Relatedness to Group: Suspicious - Appearance Appearance: Thin Framed Hygiene: Normal Grooming: Fairly Well Kept - Behavior Psychomotor Activities: Normal Exhibits Abnormal Movement: No - Attitude and Relatedness Attitude and Relatedness: Psychotically Related Eye Contact: Fair - Affect Observed Affect: Constricted Affect Consistent with: Dysphoria - Level of Consciousness Level of Consciousness: Alert Orientation: Yes Intact, Yes Orientated to Place - Impulse Control Impulse Control: Intact - Insight and Judgement Insight and Judgement: Fair - Additional Group Comments Group Comments: Lita sat on the couch at the edge of the milieu, but she did make eye contact and seemed to be interested in the topic.
[2017-12-14] MEDS: Divalproex ER TAB(*) 500 MG PO SCH ×2 (00:43→22:41)
[2017-12-14] MEDS: Gabapentin CAP(*) 300 MG PO SCH ×3 (00:43→22:41)
[2017-12-14] MEDS: Lactobacillus Acidophilus* 1 TAB PO SCH (08:43)
[2017-12-14] MEDS: CMC: OMEGA-3 FATTY ACIDS (NF) 1,000 MG CAP PO SCH (08:43)
--- NOTE | 2017-12-14 12:18 | PN ---
Subjective - Subjective Date of Service: 12/14/17 Service Type: [id number] [facility] care 15 min low complexity Subjective: Patient was seen by self, discussed with treatment team, chart was reviewed. Patient has been partially compliant with her treatment and is resistant to her medications, no reported side effects. Patient continues to report symptoms of emotional deregulation and nightmares from previous traumatic experience but when given psychoeducation and instructed about getting some help from medication. Patient rejected that and is very paranoid. Patient continued to be labile, irritable and dysphoric, getting easily agitated and verbally aggressive but no physical aggression or violence. Patient continues to be disorganized and delusional in her thinking process with minimal improvement. Patient sleeping has been better and improving. Patient eating has been ok. Patient has been fluctuating with her cooperativeness with staff. Patient behavior has been in control for the most part other than periods of irritability and agitation. But patient did not require any IM medications. Patient has been reporting no suicidal or homicidal ideation. Objective - Appearance Appearance: Thin Framed Dysmorphic Features: No Hygiene: Normal Grooming: Fairly Well Kept - Behavior Psychomotor Activities: Normal - Attitude and Relatedness Attitude and Relatedness: Psychotically Related Eye Contact: Fair - Speech Quality: Unpressured Latencies: Long Quantity: Terse - Mood Patient's Decription of Mood: "Okay" - Affect Observed Affect: Labile Affect Consistent with: Dysphoria - Thought Process Patient's Thought Process: Disorganized - but mproving Thought Content: Yes Paranoid Ideation, No Passive Wish, No Suicidal Planning, No Homicidal Ideation - Sensorium Experiencing Hallucinations: No, Sensorium is Clear Type of Hallucinations: Visual: No, Auditory: No, Command: No - Level of Consciousness Level of Consciousness: Alert Orientation: Yes Intact, Yes Orientated to Time, Yes Orientated to Place, Yes Orientated to Person - Impulse Control Impulse Control: Impaired - Insight and Judgement Insight and Judgement: Impaired - Group Participation Particating in Group Activities: Yes - Medication Management Medication Management Adherence: Partial Assessment - Assessment Inpatient DSM-V Dx: F29 Clinical Impression: 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 Patient currently admitted due to worsening of her symptoms and has not been consistent with her compliance. Patient has also been uncooperative with treatment plan and treatment was taken to the court for treatment over objection. Patient is a danger to self if discharged hence medications are being adjusted and symptoms will be stabilized on inpatient. Plan - Plan Treatment Plan: Name: YLOANDA STANFORD Birthdate: 1990 [id number] Patient will be continued with current medications, was given Invega Sustena IM 156 mg 12/10/17. Continue with other medications and was encouraged to comply with Depakote to help with her mood and behavioral dysregulation. Lab work was ordered for lyme titers and TEGAN but patient has been refusing it. Will continue to monitor for improvement and side effects. Will transfer patient to a state facility for further stabilization. patient encouraged to participate in groups, milieu and individual therapy. Medications: Current Medications Acetaminophen (Tylenol Tab*) 650 mg PO Q4H PRN PRN Reason: for pain; or Temp >101 F Last Admin: 12/07/17 13:54 Dose: 650 mg Al Hydrox/Mg Hydrox/Simethicone (Maalox Plus*) 30 ml PO Q4H PRN PRN Reason: INDIGESTION Chlorpromazine HCl (Thorazine Tab*) 50 mg PO Q6H PRN PRN Reason: AGITATION Last Admin: 12/08/17 20:54 Dose: 50 mg Divalproex Sodium (Depakote Er Tab(*)) 1,000 mg PO BEDTIME ERNESTO Last Admin: 12/14/17 00:43 Dose: Not Given Gabapentin (Neurontin Cap(*)) 300 mg PO BID ERNESTO Last Admin: 12/14/17 08:43 Dose: Not Given Ibuprofen (Motrin Tab*) 600 mg PO Q6H PRN PRN Reason: PAIN Last Admin: 12/10/17 01:09 Dose: 600 mg Lactobacillus Rhamnosus (Lactobacillus Acidophilus*) 1 tab PO DAILY ERNESTO Last Admin: 12/14/17 08:43 Dose: Not Given Magnesium Hydroxide (Milk Of Magnesia Liq*) 30 ml PO Q2H PRN PRN Reason: CONSTIPATION Fxvin-0-Gofi Ethyl Esters (Lovaza (Nf)) 1 gm PO DAILY [facility]; Protocol Last Admin: 12/14/17 08:43 Dose: Not Given
[2017-12-14] MEDS: Ibuprofen TAB* 600 MG PO PRN (16:10)
[2017-12-15] MEDS: Lactobacillus Acidophilus* 1 TAB PO SCH (08:47)
[2017-12-15] MEDS: CMC: OMEGA-3 FATTY ACIDS (NF) 1,000 MG CAP PO SCH (08:47)
[2017-12-15] MEDS: Gabapentin CAP(*) 300 MG PO SCH ×2 (08:47→20:56)
[2017-12-15] MEDS: Ibuprofen TAB* 600 MG PO PRN (13:35)
[2017-12-15] MEDS: Divalproex ER TAB(*) 500 MG PO SCH (20:56)
[2017-12-16] MEDS: CMC: OMEGA-3 FATTY ACIDS (NF) 1,000 MG CAP PO SCH (09:56)
[2017-12-16] MEDS: Lactobacillus Acidophilus* 1 TAB PO SCH (09:57)
[2017-12-16] MEDS: Gabapentin CAP(*) 300 MG PO SCH ×2 (09:58→22:19)
--- NOTE | 2017-12-16 17:12 | PN ---
Subjective - Subjective Date of Service: 12/16/17 Service Type: [id number] [facility] care 15 min low complexity Subjective: Yolanda approached to talk to me on the hallway. Her speech is mostly rambling and tengential, very difficult to understand. Says the medication is making her situation worse. her thoughts are scattered without much meaning. She has been staying to self the entire time. Objective - Appearance Appearance: Healthy Appearing, Thin Framed Dysmorphic Features: No Hygiene: Normal Grooming: Fairly Well Kept - Behavior Psychomotor Activities: Normal Exhibits Abnormal Movement: No - Attitude and Relatedness Attitude and Relatedness: Regressed Eye Contact: Fair - Speech Quality: Unpressured Latencies: Normal Quantity: Terse - Mood Patient's Decription of Mood: "Terrible" - Affect Observed Affect: Tense Affect Consistent with: Dysphoria - Thought Process Patient's Thought Process: Disorganized, Loose Associations, Tangential Thought Content: No Passive Wish, No Suicidal Planning, No Homicidal Ideation, No Paranoid Ideation - Sensorium Experiencing Hallucinations: No, Sensorium is Clear Type of Hallucinations: Visual: No, Auditory: No, Command: No - Level of Consciousness Level of Consciousness: Alert Orientation: Yes Orientated to Place, Yes Orientated to Person - Impulse Control Impulse Control: Intact - Insight and Judgement Insight and Judgement: Impaired - Group Participation Particating in Group Activities: No - Medication Management Medication Management Adherence: Partial Assessment - Assessment Merits Inpatient Hospitalization: For Immediate Safety, For Stabilization, Pending Safe DC Plan Inpatient DSM-V Dx: F29 Clinical Impression: Still symptomatic and not ready for discharge. Plan - Plan Treatment Plan: Name: YOLANDA STANFORD Birthdate: 1990 [id number] Continued Medication Management: Continue Outpt Medication Medications: Current Medications Acetaminophen (Tylenol Tab*) 650 mg PO Q4H PRN PRN Reason: for pain; or Temp >101 F Last Admin: 12/07/17 13:54 Dose: 650 mg Al Hydrox/Mg Hydrox/Simethicone (Maalox Plus*) 30 ml PO Q4H PRN PRN Reason: INDIGESTION Chlorpromazine HCl (Thorazine Tab*) 50 mg PO Q6H PRN PRN Reason: AGITATION Last Admin: 12/08/17 20:54 Dose: 50 mg Divalproex Sodium (Depakote Er Tab(*)) 1,000 mg PO BEDTIME ERNESTO Last Admin: 12/15/17 20:56 Dose: Not Given Gabapentin (Neurontin Cap(*)) 300 mg PO BID [facility] Last Admin: 12/16/17 09:58 Dose: 300 mg Ibuprofen (Motrin Tab*) 600 mg PO Q6H PRN PRN Reason: PAIN Last Admin: 12/15/17 13:35 Dose: 600 mg Lactobacillus Rhamnosus (Lactobacillus Acidophilus*) 1 tab PO DAILY [facility] Last Admin: 12/16/17 09:57 Dose: Not Given Magnesium Hydroxide (Milk Of Magnesia Liq*) 30 ml PO Q2H PRN PRN Reason: CONSTIPATION [id number] Ethyl Esters (Lovaza (Nf)) 1 gm PO DAILY [facility]; Protocol Last Admin: 12/16/17 09:56 Dose: Not Given - Discharge Plan Discharge Plan: Outpatient Follow Up Outpatient Program: [facility]
[2017-12-16] MEDS: Divalproex ER TAB(*) 500 MG PO SCH (22:19)
[2017-12-17] MEDS: Lactobacillus Acidophilus* 1 TAB PO SCH (10:05)
[2017-12-17] MEDS: CMC: OMEGA-3 FATTY ACIDS (NF) 1,000 MG CAP PO SCH (10:05)
[2017-12-17] MEDS: Gabapentin CAP(*) 300 MG PO SCH ×2 (10:05→21:03)
--- NOTE | 2017-12-17 11:45 | PN ---
MHU: Group Therapy Note - Service Type Service Type: [id number] Group Psychotherapy - Cognitive Behavioral Group Therapy ( CBT):Patient was attentive and participatory in CBT programming this morning, and remained in good behavioral control. Patient expressed positive insights regarding relevant treatment interventions and goals.
--- NOTE | 2017-12-17 13:36 | PN ---
Subjective - Subjective Date of Service: 12/17/17 Service Type: [id number] [facility] care 15 min low complexity Subjective: Patient was seen by self, discussed with treatment team, chart was reviewed. Patient has been non compliant with her PO medications, patient did receive her second dose of Invega 156 mg IM last week. No reported side effects. Patient reports struggling with her out of reality experiences. Patient continues to be delusional but with less intensity. Patient continues to have difficulty managing her emotions and feeling, gets disorganized and illogical specially when stressed. Patient brings up her traumatic experience from her family. Patient is ambivalent about meeting her mother but today said she will be fine visiting her father. But patient fluctuates with her decision triggered by difficult memories with her family. Patient sleeping has been disturbed last nights as per patient. Patient eating has been fair. Patient has been somewhat cooperative with staff. Patient behavior has been in control with no agitation and aggression. Patient has been reporting no suicidal or homicidal ideation. No hallucinations reported. Patient was educated again about her medications and possibility of changes in medications as patient has not been taking Depakote and also been refusing Gabapentin. Patient resistant to talk about it and was irritable around that discussion and requested to discontinue the session. Objective - Appearance Appearance: Thin Framed Dysmorphic Features: No Hygiene: Normal - Behavior Psychomotor Activities: Normal Exhibits Abnormal Movement: No - Attitude and Relatedness Attitude and Relatedness: Psychotically Related Eye Contact: Fair - Speech Quality: Unpressured Latencies: Normal Quantity: Terse - Mood Patient's Decription of Mood: "Okay" - Affect Observed Affect: Constricted Affect Consistent with: Dysphoria - Thought Process Patient's Thought Process: Goal Directed, Disorganized - at times Thought Content: Yes Paranoid Ideation, No Passive Wish, No Suicidal Planning, No Homicidal Ideation - Sensorium Experiencing Hallucinations: No, Sensorium is Clear Type of Hallucinations: Visual: No, Auditory: No, Command: No - Level of Consciousness Level of Consciousness: Alert Orientation: Yes Intact, Yes Orientated to Time, Yes Orientated to Place, Yes Orientated to Person - Impulse Control Impulse Control: Intact - Insight and Judgement Insight and Judgement: Poor - Group Participation Particating in Group Activities: Yes - Medication Management Medication Management Adherence: No - to partial Assessment - Assessment Merits Inpatient Hospitalization: For Stabilization Inpatient DSM-V Dx: F29 Clinical Impression: 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 Patient currently admitted due to worsening of her symptoms and has not been consistent with her compliance. Patient has also been uncooperative with treatment plan and treatment was taken to the court for treatment over objection. Patient is a danger to self if discharged hence medications are being adjusted and symptoms will be stabilized on inpatient. Plan - Plan Treatment Plan: Name: YOLANDA STANFORD Birthdate: 1990 [id number] Patient will be continued with current medications, was given Invega Sustena IM 156 mg 12/10/17. Continue with other medications and was encouraged to comply with Depakote or have discussion around other mood stabilizer to help with her mood and behavioral dysregulation. But patient became resistant and irritable on that. Lab work was ordered for lyme titers and TEGAN but patient refused to give blood. Patient due to her psychotic thinking is unable to discuss about her medications and other alternate treatment. Will continue to monitor for improvement and side effects. Will transfer patient to a state facility for further stabilization. patient encouraged to participate in groups, milieu and individual therapy. Medications: Current Medications Acetaminophen (Tylenol Tab*) 650 mg PO Q4H PRN PRN Reason: for pain; or Temp >101 F Last Admin: 12/07/17 13:54 Dose: 650 mg Al Hydrox/Mg Hydrox/Simethicone (Maalox Plus*) 30 ml PO Q4H PRN PRN Reason: INDIGESTION Chlorpromazine HCl (Thorazine Tab*) 50 mg PO Q6H PRN PRN Reason: AGITATION Last Admin: 12/08/17 20:54 Dose: 50 mg Divalproex Sodium (Depakote Er Tab(*)) 1,000 mg PO BEDTIME ERNESTO Last Admin: 12/16/17 22:19 Dose: Not Given Gabapentin (Neurontin Cap(*)) 300 mg PO BID [facility] Last Admin: 12/17/17 10:05 Dose: Not Given Ibuprofen (Motrin Tab*) 600 mg PO Q6H PRN PRN Reason: PAIN Last Admin: 12/15/17 13:35 Dose: 600 mg Lactobacillus Rhamnosus (Lactobacillus Acidophilus*) 1 tab PO DAILY [facility] Last Admin: 12/17/17 10:05 Dose: Not Given Magnesium Hydroxide (Milk Of Magnesia Liq*) 30 ml PO Q2H PRN PRN Reason: CONSTIPATION [id number]-7-[id number] Ethyl Esters (Lovaza (Nf)) 1 gm PO DAILY [facility]; Protocol Last Admin: 12/17/17 10:05 Dose: Not Given
[2017-12-17] MEDS: Divalproex ER TAB(*) 500 MG PO SCH (21:03)
[2017-12-18] MEDS: CMC: OMEGA-3 FATTY ACIDS (NF) 1,000 MG CAP PO SCH (09:20)
[2017-12-18] MEDS: Gabapentin CAP(*) 300 MG PO SCH ×2 (09:20→22:39)
[2017-12-18] MEDS: Lactobacillus Acidophilus* 1 TAB PO SCH (09:20)
--- NOTE | 2017-12-18 12:16 | PN ---
Subjective - Subjective Date of Service: 12/18/17 Service Type: [id number] [facility] care 15 min low complexity Subjective: Patient was seen by self, discussed with treatment team, chart was reviewed. Patient has been non compliant with her PO medications, patient did receive her second dose of Invega 156 mg IM last week. No reported side effects but continue to respond to medication with some improvement. Patient not able to appreciate effect of medication and stated that refused her medications she is not taking any medication but is doing better. patient reported continued struggle with intermittent out of reality experience but less frequent. Patient was less delusional and less trust issues. Patient continues to have difficulty managing her emotions and feeling, but is able to handle conversation with provider for sometime before getting stressed. Patient brings up her traumatic experience from her family. Patient sleeping was better as per patient. Patient eating has been fair. Patient has been somewhat cooperative with staff. Patient behavior has been in control with no agitation and aggression. Patient has been reporting no suicidal or homicidal ideation. No hallucinations reported. Patient was educated again about her medications and possibility of changes in medications, patient is acceptive of conversation around medication superficially but is resistant to take any oral medication. Patient reports that she continues to have "quivering and seizure" but less frequent Objective - Appearance Appearance: Thin Framed Dysmorphic Features: No Hygiene: Normal Grooming: Fairly Well Kept - Behavior Psychomotor Activities: Normal Exhibits Abnormal Movement: No - Attitude and Relatedness Attitude and Relatedness: Superficially Cooperative Eye Contact: Fair - Speech Quality: Unpressured Latencies: Long - at times with thought blocking and appeared to be responding to internal stimuli Quantity: Terse - Mood Patient's Decription of Mood: "Okay" - Affect Observed Affect: Labile Affect Consistent with: Euphoria - Thought Process Patient's Thought Process: Disorganized - less, Circumstantial Thought Content: Yes Paranoid Ideation - but improving, No Passive Wish, No Suicidal Planning, No Homicidal Ideation - Sensorium Experiencing Hallucinations: No, Sensorium is Clear Type of Hallucinations: Visual: No, Auditory: No, Command: No - Level of Consciousness Level of Consciousness: Alert Orientation: Yes Intact, Yes Orientated to Time, Yes Orientated to Place, Yes Orientated to Person - Impulse Control Impulse Control: Intact - Insight and Judgement Insight and Judgement: Poor - Group Participation Particating in Group Activities: Yes - Medication Management Medication Management Adherence: Partial Assessment - Assessment Inpatient DSM-V Dx: F29 Clinical Impression: 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 Patient currently admitted due to worsening of her symptoms and has not been consistent with her compliance. Patient has also been uncooperative with treatment plan and treatment was taken to the court for treatment over objection. Patient is a danger to self if discharged hence medications are being adjusted and symptoms will be stabilized on inpatient. Plan - Plan Treatment Plan: Name: YOLANDA STANFORD Birthdate: 1990 [id number] Patient will be continued with current medications, was given Invega Sustena IM 156 mg 12/10/17. Continue with other medications and was encouraged to comply with Depakote or have discussion around other mood stabilizer to help with her mood and behavioral dysregulation. Patient would agree to conversation but is resistant and rationalizes not to use any medication. Lab work was ordered again for lyme titers and TEGAN as she is showing some improvement psychosis. Will continue to monitor for improvement and side effects. Will transfer patient to a state facility for further stabilization. patient encouraged to participate in groups, milieu and individual therapy. Medications: Current Medications Acetaminophen (Tylenol Tab*) 650 mg PO Q4H PRN PRN Reason: for pain; or Temp >101 F Last Admin: 12/07/17 13:54 Dose: 650 mg Al Hydrox/Mg Hydrox/Simethicone (Maalox Plus*) 30 ml PO Q4H PRN PRN Reason: INDIGESTION Chlorpromazine HCl (Thorazine Tab*) 50 mg PO Q6H PRN PRN Reason: AGITATION Last Admin: 12/08/17 20:54 Dose: 50 mg Divalproex Sodium (Depakote Er Tab(*)) 1,000 mg PO BEDTIME ERNESTO Last Admin: 12/17/17 21:03 Dose: Not Given Gabapentin (Neurontin Cap(*)) 300 mg PO BID ERNESTO Last Admin: 12/18/17 09:20 Dose: Not Given Ibuprofen (Motrin Tab*) 600 mg PO Q6H PRN PRN Reason: PAIN Last Admin: 12/15/17 13:35 Dose: 600 mg Lactobacillus Rhamnosus (Lactobacillus Acidophilus*) 1 tab PO DAILY ERNESTO Last Admin: 12/18/17 09:20 Dose: Not Given Magnesium Hydroxide (Milk Of Magnesia Liq*) 30 ml PO Q2H PRN PRN Reason: CONSTIPATION [id number] Ethyl Esters (Lovaza (Nf)) 1 gm PO DAILY ERNESTO; Protocol Last Admin: 12/18/17 09:20 Dose: Not Given
--- NOTE | 2017-12-18 13:56 | PN ---
[facility]: Group Therapy Note - Service Type Service Type: [id number] Group Psychotherapy - Cognitive Behavioral Group Therapy ( CBT):Patient was attentive and participatory in CBT programming this morning, and remained in good behavioral control. Patient expressed positive insights regarding relevant treatment interventions and goals.
[2017-12-18] MEDS: Divalproex ER TAB(*) 500 MG PO SCH (22:39)
[2017-12-19] MEDS: Lactobacillus Acidophilus* 1 TAB PO SCH (09:58)
[2017-12-19] MEDS: Gabapentin CAP(*) 300 MG PO SCH ×2 (09:58→22:14)
[2017-12-19] MEDS: CMC: OMEGA-3 FATTY ACIDS (NF) 1,000 MG CAP PO SCH (09:58)
--- NOTE | 2017-12-19 13:48 | PN ---
Subjective - Subjective Date of Service: 12/19/17 Service Type: [id number] [facility] care 15 min low complexity Subjective: Patient was seen by self, discussed with treatment team, chart was reviewed. Patient has been non compliant with her PO medications, patient did receive her second dose of Invega 156 mg IM last week. No reported side effects but continue to respond to medication with some improvement. Patient not able to appreciate effect of medication and stated that she does not need medication and only medications that will cure he symptoms is intra uterine device. patient reported continued struggle with intermittent out of reality experience but less frequent. Patient was less delusional and less trust issues. Patient continues to have difficulty managing her emotions and feeling, but is able to handle conversation with provider for sometime before getting stressed. Patient brings up her traumatic experience from her family today again and would not want to visit them. Patient sleeping was better as per patient. Patient eating has been fair. Patient has been somewhat cooperative with staff. Patient behavior has been in control with no agitation and aggression. Patient has been reporting no suicidal or homicidal ideation. No hallucinations reported. Patient was educated again about her medications and possibility of changes in medications, patient was not acceptive of conversation around medication today. Objective - Appearance Appearance: Thin Framed Dysmorphic Features: No Hygiene: Normal Grooming: Fairly Well Kept - Behavior Psychomotor Activities: Normal Exhibits Abnormal Movement: No - Attitude and Relatedness Attitude and Relatedness: Superficially Cooperative Eye Contact: Fair - Speech Quality: Unpressured Latencies: Normal Quantity: Terse - Mood Patient's Decription of Mood: "Great" - Affect Observed Affect: Labile Affect Consistent with: Euphoria - Thought Process Patient's Thought Process: Goal Directed Thought Content: Yes Paranoid Ideation, No Passive Wish, No Suicidal Planning, No Homicidal Ideation - Sensorium Experiencing Hallucinations: No, Sensorium is Clear Type of Hallucinations: Visual: No, Auditory: No, Command: No - Level of Consciousness Level of Consciousness: Alert Orientation: Yes Intact, Yes Orientated to Time, Yes Orientated to Place, Yes Orientated to Person - Impulse Control Impulse Control: Intact - Insight and Judgement Insight and Judgement: Poor - Medication Management Medication Management Adherence: Partial Assessment - Assessment Merits Inpatient Hospitalization: For Stabilization, For Discharge Planning Inpatient DSM-V Dx: F29 Clinical Impression: 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 Patient currently admitted due to worsening of her symptoms and has not been consistent with her compliance. Patient has also been uncooperative with treatment plan and treatment was taken to the court for treatment over objection. Patient is a danger to self if discharged hence medications are being adjusted and symptoms will be stabilized on inpatient. Plan - Plan Treatment Plan: Name: YOLANDA STANFORD Birthdate: 1990 [id number] Patient will be continued with current medications, was given Invega Sustena IM 156 mg 12/10/17. Continue with other medications and was encouraged to comply with Depakote or have discussion around other mood stabilizer to help with her mood and behavioral dysregulation. Patient would not agree to have conversation about medications and is resistant and rationalizes not to use any medication. Lab work was ordered again for lyme titers and TEGAN as she is showing some improvement psychosis. Will continue to monitor for improvement and side effects. Will transfer patient to a state facility for further stabilization. patient encouraged to participate in groups, milieu and individual therapy. Medications: Current Medications Acetaminophen (Tylenol Tab*) 650 mg PO Q4H PRN PRN Reason: for pain; or Temp >101 F Last Admin: 12/07/17 13:54 Dose: 650 mg Al Hydrox/Mg Hydrox/Simethicone (Maalox Plus*) 30 ml PO Q4H PRN PRN Reason: INDIGESTION Chlorpromazine HCl (Thorazine Tab*) 50 mg PO Q6H PRN PRN Reason: AGITATION Last Admin: 12/08/17 20:54 Dose: 50 mg Divalproex Sodium (Depakote Er Tab(*)) 1,000 mg PO BEDTIME ERNESTO Last Admin: 12/18/17 22:39 Dose: Not Given Gabapentin (Neurontin Cap(*)) 300 mg PO BID ERNESTO Last Admin: 12/19/17 09:58 Dose: Not Given Ibuprofen (Motrin Tab*) 600 mg PO Q6H PRN PRN Reason: PAIN Last Admin: 12/15/17 13:35 Dose: 600 mg Lactobacillus Rhamnosus (Lactobacillus Acidophilus*) 1 tab PO DAILY [facility] Last Admin: 12/19/17 09:58 Dose: Not Given Magnesium Hydroxide (Milk Of Magnesia Liq*) 30 ml PO Q2H PRN PRN Reason: CONSTIPATION [id number] Ethyl Esters (Lovaza (Nf)) 1 gm PO DAILY ERNESTO; Protocol Last Admin: 12/19/17 09:58 Dose: Not Given
[2017-12-19] MEDS: Divalproex ER TAB(*) 500 MG PO SCH (22:14)
[2017-12-20] MEDS: Lactobacillus Acidophilus* 1 TAB PO SCH (08:56)
[2017-12-20] MEDS: Gabapentin CAP(*) 300 MG PO SCH ×2 (08:56→21:23)
[2017-12-20] MEDS: CMC: OMEGA-3 FATTY ACIDS (NF) 1,000 MG CAP PO SCH (08:57)
--- NOTE | 2017-12-20 11:59 | PN ---
Subjective - Subjective Date of Service: 12/20/17 Service Type: [id number] Hosp care 15 min low complexity Subjective: Patient was seen by self, discussed with treatment team, chart was reviewed. Patient has been non compliant with her PO medications, patient did receive her second dose of Invega 156 mg IM last week. No reported side effects but continues to respond to medication with some improvement. Patient not able to appreciate effect of medication and stated that she does not need medication and only medications that will cure her symptoms is intra uterine device. patient reported continued struggle with intermittent out of reality experience but less frequent and disorganized thinking which has shown some improvement as well. Patient is less delusional and less trust issues. Patient sleeping was better as per patient. Patient eating has been fair. Patient has been somewhat cooperative with staff. Patient behavior has been in control with no agitation and aggression. Patient has been reporting no suicidal or homicidal ideation. No hallucinations reported. Patient was educated again about her medications and possibility of changes in medications, patient was not acceptive of conversation around medications and has been refusing to take any. Objective - Appearance Appearance: Thin Framed Dysmorphic Features: No Grooming: Fairly Well Kept - Behavior Psychomotor Activities: Normal - Attitude and Relatedness Attitude and Relatedness: Superficially Cooperative Eye Contact: Fair - Speech Quality: Unpressured Latencies: Long Quantity: Terse - Mood Patient's Decription of Mood: "Okay" - Affect Observed Affect: Labile Affect Consistent with: Euphoria - Thought Process Patient's Thought Process: Disorganized - at times Thought Content: Yes Paranoid Ideation, No Passive Wish, No Suicidal Planning, No Homicidal Ideation - Sensorium Experiencing Hallucinations: No, Sensorium is Clear Type of Hallucinations: Visual: No, Auditory: No, Command: No - Level of Consciousness Level of Consciousness: Alert Orientation: Yes Intact, Yes Orientated to Time, Yes Orientated to Place, Yes Orientated to Person - Impulse Control Impulse Control: Intact - Insight and Judgement Insight and Judgement: Fair - Medication Management Medication Management Adherence: Partial Assessment - Assessment Merits Inpatient Hospitalization: For Immediate Safety, For Stabilization, For Discharge Planning Inpatient DSM-V Dx: F29 Clinical Impression: 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 Patient currently admitted due to worsening of her symptoms and has not been consistent with her compliance. Patient has also been uncooperative with treatment plan and treatment was taken to the court for treatment over objection. Patient is a danger to self if discharged hence medications are being adjusted and symptoms will be stabilized on inpatient. Plan - Plan Treatment Plan: Name: YOLANDA STANFORD Birthdate: 1990 [id number] Patient will be continued with current medications, was given Invega Sustena IM 156 mg 12/10/17. Continue with other medications and was encouraged to comply with Depakote or have discussion around other mood stabilizer to help with her mood and behavioral dysregulation. Patient would not agree to have conversation about medications and is resistant and rationalizes not to use any medication. Lab work was ordered again for lyme titers and TEGAN as she is showing some improvement psychosis. Will continue to monitor for improvement and side effects. Will transfer patient to a state facility for further stabilization. patient encouraged to participate in groups, milieu and individual therapy. Medications: Current Medications Acetaminophen (Tylenol Tab*) 650 mg PO Q4H PRN PRN Reason: for pain; or Temp >101 F Last Admin: 12/07/17 13:54 Dose: 650 mg Al Hydrox/Mg Hydrox/Simethicone (Maalox Plus*) 30 ml PO Q4H PRN PRN Reason: INDIGESTION Chlorpromazine HCl (Thorazine Tab*) 50 mg PO Q6H PRN PRN Reason: AGITATION Last Admin: 12/08/17 20:54 Dose: 50 mg Divalproex Sodium (Depakote Er Tab(*)) 1,000 mg PO BEDTIME ERNESTO Last Admin: 12/19/17 22:14 Dose: Not Given Gabapentin (Neurontin Cap(*)) 300 mg PO BID ERNESTO Last Admin: 12/20/17 08:56 Dose: Not Given Ibuprofen (Motrin Tab*) 600 mg PO Q6H PRN PRN Reason: PAIN Last Admin: 12/15/17 13:35 Dose: 600 mg Lactobacillus Rhamnosus (Lactobacillus Acidophilus*) 1 tab PO DAILY ERNESTO Last Admin: 12/20/17 08:56 Dose: Not Given Magnesium Hydroxide (Milk Of Magnesia Liq*) 30 ml PO Q2H PRN PRN Reason: CONSTIPATION [id number] Ethyl Esters (Lovaza (Nf)) 1 gm PO DAILY [facility]; Protocol Last Admin: 12/20/17 08:57 Dose: Not Given
[2017-12-20] MEDS: Divalproex ER TAB(*) 500 MG PO SCH (21:23)
[2017-12-21] MEDS: CMC: OMEGA-3 FATTY ACIDS (NF) 1,000 MG CAP PO SCH (08:44)
[2017-12-21] MEDS: Lactobacillus Acidophilus* 1 TAB PO SCH (08:44)
[2017-12-21] MEDS: Gabapentin CAP(*) 300 MG PO SCH (08:44)
--- NOTE | 2017-12-21 13:03 | PN ---
Subjective - Subjective Date of Service: 12/21/17 Service Type: 91417 Hosp care 15 min low complexity Subjective: Patient was seen by self, discussed with treatment team, chart was reviewed. Patient has been non compliant with her PO medications, patient did receive her second dose of Invega 156 mg IM last week. No reported side effects but continues to respond to medication with some improvement. Patient not able to appreciate effect of medication and stated that she does not need medication and continue to persevere on intra uterine device that is resolution of all her symptoms. patient today was unsure if her IUD was replaced in july, agreed to sign release of information to obtain records. patient reported continued struggle with intermittent out of reality experience but less frequent and disorganized thinking which has shown some improvement as well. Patient is less delusional and less trust issues. Patient sleeping was better as per patient. Patient eating has been fair. Patient has been somewhat cooperative with staff and using comfort room appropriately and requesting privileges to use computer. Patient behavior has been in control with no agitation and aggression. Patient has been reporting no suicidal or homicidal ideation. No hallucinations reported. Patient was educated again about her medications and possibility of changes in medications, patient was not acceptive of conversation around medications and has been refusing to take any. Patient has an uncle that suffered stroke and was admitted at the hospital in critical condition and patient was emotional about that, became upset and further disorganized and delusional after hearing that and refuse to see him. No pseudo seizures reported. Objective - Appearance Appearance: Thin Framed Dysmorphic Features: No Grooming: Fairly Well Kept - Behavior Psychomotor Activities: Abnormal-Decreased Exhibits Abnormal Movement: No - Attitude and Relatedness Attitude and Relatedness: Psychotically Related Eye Contact: Fair - Speech Quality: Unpressured Latencies: Long Quantity: Terse - Mood Patient's Decription of Mood: "Okay" - Affect Observed Affect: Labile Affect Consistent with: Dysphoria - Thought Process Patient's Thought Process: Disorganized - at times Thought Content: Yes Paranoid Ideation, No Passive Wish, No Suicidal Planning, No Homicidal Ideation - Sensorium Experiencing Hallucinations: No, Sensorium is Clear Type of Hallucinations: Visual: No, Auditory: No, Command: No - Level of Consciousness Level of Consciousness: Alert Orientation: Yes Intact, Yes Orientated to Time, Yes Orientated to Place, Yes Orientated to Person - Impulse Control Impulse Control: Intact - Insight and Judgement Insight and Judgement: Poor - Group Participation Particating in Group Activities: Yes - Medication Management Medication Management Adherence: Partial Assessment - Assessment Inpatient DSM-V Dx: F29 Clinical Impression: 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 Patient currently admitted due to worsening of her symptoms and has not been consistent with her compliance. Patient has also been uncooperative with treatment plan and treatment was taken to the court for treatment over objection. Patient is a danger to self if discharged hence medications are being adjusted and symptoms will be stabilized on inpatient. Plan - Plan Treatment Plan: Name: YOLANDA STANFORD Birthdate: 1990 [id number] Patient will be continued with current medications, was given Invega Sustena IM 156 mg 12/10/17. Continue with other medications and was encouraged to comply with Depakote or have discussion around other mood stabilizer to help with her mood and behavioral dysregulation. Patient would not agree to have conversation about medications and is resistant and rationalizes not to use any medication. TEGAN and Lyme titers were with in normal limits. Will continue to monitor for improvement and side effects. Will transfer patient to a state facility for further stabilization. patient encouraged to participate in groups, milieu and individual therapy. Medications: Current Medications Acetaminophen (Tylenol Tab*) 650 mg PO Q4H PRN PRN Reason: for pain; or Temp >101 F Last Admin: 12/07/17 13:54 Dose: 650 mg Al Hydrox/Mg Hydrox/Simethicone (Maalox Plus*) 30 ml PO Q4H PRN PRN Reason: INDIGESTION Chlorpromazine HCl (Thorazine Tab*) 50 mg PO Q6H PRN PRN Reason: AGITATION Last Admin: 12/08/17 20:54 Dose: 50 mg Divalproex Sodium (Depakote Er Tab(*)) 1,000 mg PO BEDTIME ERNESTO Last Admin: 12/20/17 21:23 Dose: Not Given Ibuprofen (Motrin Tab*) 600 mg PO Q6H PRN PRN Reason: PAIN Last Admin: 12/15/17 13:35 Dose: 600 mg Lactobacillus Rhamnosus (Lactobacillus Acidophilus*) 1 tab PO DAILY ERNESTO Last Admin: 12/21/17 08:44 Dose: Not Given Magnesium Hydroxide (Milk Of Magnesia Liq*) 30 ml PO Q2H PRN PRN Reason: CONSTIPATION [id number] Ethyl Esters (Lovaza (Nf)) 1 gm PO DAILY [facility]; Protocol Last Admin: 12/21/17 08:44 Dose: Not Given
[2017-12-21] MEDS: Divalproex ER TAB(*) 500 MG PO SCH (21:04)
[2017-12-22] MEDS: CMC: OMEGA-3 FATTY ACIDS (NF) 1,000 MG CAP PO SCH (10:11)
[2017-12-22] MEDS: Lactobacillus Acidophilus* 1 TAB PO SCH (10:11)
[2017-12-22] MEDS: Divalproex ER TAB(*) 500 MG PO SCH (20:04)
[2017-12-23] MEDS: CMC: OMEGA-3 FATTY ACIDS (NF) 1,000 MG CAP PO SCH (09:52)
[2017-12-23] MEDS: Lactobacillus Acidophilus* 1 TAB PO SCH (09:52)
[2017-12-23] MEDS: Divalproex ER TAB(*) 500 MG PO SCH (21:12)
[2017-12-24] MEDS: CMC: OMEGA-3 FATTY ACIDS (NF) 1,000 MG CAP PO SCH (09:45)
[2017-12-24] MEDS: Lactobacillus Acidophilus* 1 TAB PO SCH (09:45)
--- NOTE | 2017-12-24 11:26 | PN ---
Subjective - Subjective Date of Service: 12/24/17 Service Type: [id number] Hosp care 15 min low complexity Subjective: Patient was seen by self, discussed with treatment team, chart was reviewed. Patient has been non compliant with her PO medications, patient is on Invega IM Q monthly. No reported side effects but continues to respond to medications with some improvement. Patient not able to appreciate effect of medication and stated that she does not need medication and continue to persevere on intra uterine device that is resolution of all her symptoms and wants it to be places. patient today was educated about information from his OBGYN clinic and IUD placement few months back. patient reported continued struggle with intermittent out of reality psychotic experience but less frequent and disorganized thinking which has plateaued with improvement. Patient is less delusional and less trust issues. Patient sleeping was better as per patient. Patient eating has been fair. Patient behavior has been in control with no agitation and aggression but reportedly had pseudo seizure activity over the weekend. Patient reports that it was when memories from past about her mother came back. Patient has been reporting no suicidal or homicidal ideation. No hallucinations reported. Patient was educated again about her medications and possibility of changes in medications, patient was not acceptive of conversation around medications and has been refusing to take any. Objective - Appearance Appearance: Healthy Appearing Dysmorphic Features: No Hygiene: Normal Grooming: Fairly Well Kept - Behavior Psychomotor Activities: Abnormal-Decreased Exhibits Abnormal Movement: No - Attitude and Relatedness Attitude and Relatedness: Superficially Cooperative Eye Contact: Fair - Speech Quality: Unpressured Latencies: Long Quantity: Terse - Mood Patient's Decription of Mood: "Okay" - Affect Observed Affect: Constricted Affect Consistent with: Dysphoria - Thought Process Patient's Thought Process: Goal Directed Thought Content: Yes Paranoid Ideation, No Passive Wish, No Suicidal Planning, No Homicidal Ideation - Sensorium Experiencing Hallucinations: No, Sensorium is Clear Type of Hallucinations: Visual: No, Auditory: No, Command: No - Level of Consciousness Level of Consciousness: Alert Orientation: Yes Intact, Yes Orientated to Time, Yes Orientated to Place, Yes Orientated to Person - Impulse Control Impulse Control: Intact - Insight and Judgement Insight and Judgement: Impaired - Group Participation Particating in Group Activities: Yes - Medication Management Medication Management Adherence: Partial - taking no PO medications Assessment - Assessment Merits Inpatient Hospitalization: For Stabilization Inpatient DSM-V Dx: F29 Clinical Impression: 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 Patient currently admitted due to worsening of her symptoms and has not been consistent with her compliance. Patient has also been uncooperative with treatment plan and treatment was taken to the court for treatment over objection. Patient is a danger to self if discharged hence medications are being adjusted and symptoms will be stabilized on inpatient. Plan - Plan Treatment Plan: Name: YOLANDA STANFORD Birthdate: 1990 [id number] Patient will be continued with current medications, was given Invega Sustena IM 156 mg 12/10/17. Continue with other medications and was encouraged to comply with Depakote or have discussion around other mood stabilizer to help with her mood and behavioral dysregulation. Patient would not agree to have conversation about medications and is resistant and rationalizes not to use any medication even though after educating that she recently had IUD placed and does not need another one.. TEGAN and Lyme titers were with in normal limits. Will continue to monitor for improvement and side effects. Will transfer patient to a state facility for further stabilization. patient encouraged to participate in groups, milieu and individual therapy. Medications: Current Medications Acetaminophen (Tylenol Tab*) 650 mg PO Q4H PRN PRN Reason: for pain; or Temp >101 F Last Admin: 12/07/17 13:54 Dose: 650 mg Al Hydrox/Mg Hydrox/Simethicone (Maalox Plus*) 30 ml PO Q4H PRN PRN Reason: INDIGESTION Chlorpromazine HCl (Thorazine Tab*) 50 mg PO Q6H PRN PRN Reason: AGITATION Last Admin: 12/08/17 20:54 Dose: 50 mg Divalproex Sodium (Depakote Er Tab(*)) 1,000 mg PO BEDTIME ERNESTO Last Admin: 12/23/17 21:12 Dose: Not Given Ibuprofen (Motrin Tab*) 600 mg PO Q6H PRN PRN Reason: PAIN Last Admin: 12/15/17 13:35 Dose: 600 mg Lactobacillus Rhamnosus (Lactobacillus Acidophilus*) 1 tab PO DAILY ERNESTO Last Admin: 12/24/17 09:45 Dose: Not Given Magnesium Hydroxide (Milk Of Magnesia Liq*) 30 ml PO Q2H PRN PRN Reason: CONSTIPATION Qcele-6-Glfx Ethyl Esters (Lovaza (Nf)) 1 gm PO DAILY [facility]; Protocol Last Admin: 12/24/17 09:45 Dose: Not Given
[2017-12-24] MEDS: Divalproex ER TAB(*) 500 MG PO SCH (21:28)
[2017-12-25] MEDS: CMC: OMEGA-3 FATTY ACIDS (NF) 1,000 MG CAP PO SCH (08:47)
[2017-12-25] MEDS: Lactobacillus Acidophilus* 1 TAB PO SCH (08:47)
--- NOTE | 2017-12-25 11:33 | PN ---
[facility]: Group Therapy Note - Service Type Service Type: [id number] Group Psychotherapy - Cognitive Behavioral Group Therapy ( CBT):Patient presented in CBT programming as disorganized and disruptive in discussion and needed repeated redirection to attend to presented materials.
--- NOTE | 2017-12-25 11:37 | PN ---
Subjective - Subjective Date of Service: 12/25/17 Service Type: [id number] Hosp care 15 min low complexity Subjective: Patient was seen by self, discussed with treatment team, chart was reviewed. Patient has been non compliant with her PO medications, patient is on Invega IM Q monthly. No reported side effects but continues to respond to medications with some improvement but residual psychosis and mood and emotional instability. Patient not able to appreciate effect of medication and stated that she does not need medication and continue to persevere on intra uterine device that is resolution of all her symptoms and wants it to be places. Patient reported continued struggle with intermittent out of reality psychotic experience but less frequent and disorganized thinking but has plateaued. Patient is less delusional and less trust issues. Patient sleeping was better as per patient. Patient eating has been fair. Patient behavior has been in control with no agitation and aggression but reportedly was feeling euphoric and dancing on the unit out of her usual character. Patient has been reporting no suicidal or homicidal ideation. No hallucinations reported but is noticed to be intermittently at times responding to internal stimuli. Patient was educated again about her medications and possibility of changes in medications, patient was not acceptive of conversation around medications and has been refusing to take any oral. Objective - Appearance Appearance: Thin Framed Dysmorphic Features: No Hygiene: Normal Grooming: Fairly Well Kept - Behavior Psychomotor Activities: Normal Exhibits Abnormal Movement: No - Attitude and Relatedness Attitude and Relatedness: Psychotically Related Eye Contact: Fair - Speech Quality: Unpressured Latencies: Long Quantity: Terse - Mood Patient's Decription of Mood: "Okay" - Affect Observed Affect: Constricted Affect Consistent with: Dysphoria - Thought Process Patient's Thought Process: Goal Directed, Circumstantial Thought Content: Yes Paranoid Ideation, No Passive Wish, No Suicidal Planning, No Homicidal Ideation - Sensorium Experiencing Hallucinations: No, Sensorium is Clear Type of Hallucinations: Visual: No, Auditory: No, Command: No - Level of Consciousness Level of Consciousness: Alert Orientation: Yes Intact, Yes Orientated to Time, Yes Orientated to Place, Yes Orientated to Person - Impulse Control Impulse Control: Intact - Insight and Judgement Insight and Judgement: Poor - Group Participation Particating in Group Activities: Yes - Medication Management Medication Management Adherence: No Assessment - Assessment Merits Inpatient Hospitalization: For Stabilization Inpatient DSM-V Dx: F29 Clinical Impression: 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 Patient currently admitted due to worsening of her symptoms and has not been consistent with her compliance. Patient has also been uncooperative with treatment plan and treatment was taken to the court for treatment over objection. Patient is a danger to self if discharged hence medications are being adjusted and symptoms will be stabilized on inpatient. Plan - Plan Treatment Plan: Name: YOLANDA STANFORD Birthdate: 1990 [id number] Patient will be continued with current medications, was given Invega Sustena IM 156 mg 12/10/17. Continue with other medications and was encouraged to comply with Depakote or have discussion around other mood stabilizer to help with her mood and behavioral dysregulation. Patient would not agree to have conversation about medications and is resistant and rationalizes not to use any medication even though after educating that she recently had IUD placed and does not need another one. TEGAN and Lyme titers were with in normal limits. Will continue to monitor for improvement and side effects. Will transfer patient to a state facility for further stabilization. patient encouraged to participate in groups, milieu and individual therapy. Medications: Current Medications Acetaminophen (Tylenol Tab*) 650 mg PO Q4H PRN PRN Reason: for pain; or Temp >101 F Last Admin: 12/07/17 13:54 Dose: 650 mg Al Hydrox/Mg Hydrox/Simethicone (Maalox Plus*) 30 ml PO Q4H PRN PRN Reason: INDIGESTION Chlorpromazine HCl (Thorazine Tab*) 50 mg PO Q6H PRN PRN Reason: AGITATION Last Admin: 12/08/17 20:54 Dose: 50 mg Divalproex Sodium (Depakote Er Tab(*)) 1,000 mg PO BEDTIME ERNESTO Last Admin: 12/24/17 21:28 Dose: Not Given Ibuprofen (Motrin Tab*) 600 mg PO Q6H PRN PRN Reason: PAIN Last Admin: 12/15/17 13:35 Dose: 600 mg Magnesium Hydroxide (Milk Of Magnesia Liq*) 30 ml PO Q2H PRN PRN Reason: CONSTIPATION
[2017-12-25] MEDS: Divalproex ER TAB(*) 500 MG PO SCH (20:39)
--- NOTE | 2017-12-26 12:15 | PN ---
Subjective - Subjective Date of Service: 12/26/17 Service Type: [id number] Hosp care 15 min low complexity Subjective: Patient was seen by self, discussed with treatment team, chart was reviewed. Patient with similar presentation, has been non compliant with her PO medications, patient is on Invega IM Q monthly. No reported side effects but continues to respond to medications with some improvement but residual psychosis and mood and emotional instability. Patient is not able to appreciate effect of medication and became angry and irritable stating that she does not need medication and continue to persevere on intra uterine device that is resolution of all her symptoms and wants it to be places. Patient has intermittent out of reality psychotic experience but less frequent and disorganized thinking at times. Patient continues to have residual paranoid delusional and trust issues. Patient sleeping was fine. Patient eating has been fair. Patient behavior has been in control with no agitation and aggression but reportedly was feeling irritable. Patient has been reporting passive suicidal ideation but no homicidal ideation. No hallucinations reported but is noticed to be intermittently at times responding to internal stimuli. Patient was educated again about her medications and possibility of changes in medications, patient was not acceptive of conversation around medications and has been refusing to take any oral. Objective - Appearance Appearance: Thin Framed Hygiene: Normal Grooming: Fairly Well Kept - Behavior Psychomotor Activities: Abnormal-Decreased Exhibits Abnormal Movement: No - Attitude and Relatedness Attitude and Relatedness: Minimally Cooperative Eye Contact: Fair - intense at times - Speech Quality: Unpressured Latencies: Long Quantity: Terse - Mood Patient's Decription of Mood: "Okay" - Affect Observed Affect: Depressed Affect Consistent with: Dysphoria - Thought Process Patient's Thought Process: Goal Directed, Disorganized - at times Thought Content: Yes Passive Wish, Yes Paranoid Ideation, No Suicidal Planning, No Homicidal Ideation - Sensorium Experiencing Hallucinations: No, Sensorium is Clear Type of Hallucinations: Visual: No, Auditory: No, Command: No - Level of Consciousness Level of Consciousness: Alert Orientation: Yes Intact, Yes Orientated to Time, Yes Orientated to Place, Yes Orientated to Person - Impulse Control Impulse Control: Intact - but periods of angry momens that she gets loud but no physical aggression - Insight and Judgement Insight and Judgement: Poor - Group Participation Particating in Group Activities: Yes - Medication Management Medication Management Adherence: No Assessment - Assessment Merits Inpatient Hospitalization: For Stabilization, For Discharge Planning Inpatient DSM-V Dx: F29 Clinical Impression: 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 Patient currently admitted due to worsening of her symptoms and has not been consistent with her compliance. Patient has also been uncooperative with treatment plan and treatment was taken to the court for treatment over objection. Patient is a danger to self if discharged hence medications are being adjusted and symptoms will be stabilized on inpatient. Plan - Plan Treatment Plan: Name: YOLANDA STANFORD Birthdate: 1990 [id number] Patient will be continued with current medications, was given first dose of Invega Sustena 234 mg Im on 12/06/17 IM and second dose on 156 mg 12/10/17. Continue with other medications and was encouraged to comply with Depakote or have discussion around other mood stabilizer to help with her mood and behavioral dysregulation. Patient would not agree to have conversation about medications and is resistant and rationalizes not to use any medication even though after educating that she recently had IUD placed and does not need another one. TEGAN and Lyme titers were with in normal limits. Will continue to monitor for improvement and side effects. Will transfer patient to a state facility for further stabilization. patient encouraged to participate in groups, milieu and individual therapy. Medications: Current Medications Acetaminophen (Tylenol Tab*) 650 mg PO Q4H PRN PRN Reason: for pain; or Temp >101 F Last Admin: 12/07/17 13:54 Dose: 650 mg Al Hydrox/Mg Hydrox/Simethicone (Maalox Plus*) 30 ml PO Q4H PRN PRN Reason: INDIGESTION Chlorpromazine HCl (Thorazine Tab*) 50 mg PO Q6H PRN PRN Reason: AGITATION Last Admin: 12/08/17 20:54 Dose: 50 mg Divalproex Sodium (Depakote Er Tab(*)) 1,000 mg PO BEDTIME ERNESTO Last Admin: 12/25/17 20:39 Dose: Not Given Ibuprofen (Motrin Tab*) 600 mg PO Q6H PRN PRN Reason: PAIN Last Admin: 12/15/17 13:35 Dose: 600 mg Magnesium Hydroxide (Milk Of Magnesia Liq*) 30 ml PO Q2H PRN PRN Reason: CONSTIPATION
[2017-12-26] MEDS: Divalproex ER TAB(*) 500 MG PO SCH (20:44)
--- NOTE | 2017-12-27 12:14 | PN ---
Subjective - Subjective Date of Service: 12/27/17 Service Type: [id number] Hosp care 15 min low complexity Subjective: Patient was seen by self, discussed with treatment team, chart was reviewed. Patient with similar presentation, has been non compliant with her PO medications, patient is on Invega IM Q monthly. No reported side effects but continues to respond to medications with some improvement but residual psychosis and mood and emotional instability. Patient is not able to appreciate effect of medication and was calmer today and less disorganized. Patient has intermittent out of reality psychotic experience but less frequent and disorganized thinking at times. Patient continues to have residual paranoid delusional and trust issues. Patient sleeping was fine. Patient eating has been fair. Patient behavior has been in control with no agitation and aggression . Patient has been reporting passive suicidal ideation but no homicidal ideation. No hallucinations reported but is noticed to be intermittently at times responding to internal stimuli. Patient was educated again about her medications and possibility of changes in medications, patient was not acceptive of conversation around medications and has been refusing to take any oral medication. Objective - Appearance Appearance: Thin Framed Dysmorphic Features: No Hygiene: Normal Grooming: Fairly Well Kept - Behavior Psychomotor Activities: Abnormal-Decreased Exhibits Abnormal Movement: No - Attitude and Relatedness Attitude and Relatedness: Minimally Cooperative Eye Contact: Fair - Speech Quality: Unpressured Latencies: Long Quantity: Terse - Mood Patient's Decription of Mood: "Okay" - Affect Observed Affect: Constricted Affect Consistent with: Dysphoria - Thought Process Patient's Thought Process: Goal Directed Thought Content: Yes Paranoid Ideation, No Passive Wish, No Suicidal Planning, No Homicidal Ideation - Sensorium Experiencing Hallucinations: No, Sensorium is Clear Type of Hallucinations: Visual: No, Auditory: No, Command: No - Level of Consciousness Orientation: Yes Intact, Yes Orientated to Time, Yes Orientated to Place, Yes Orientated to Person - Impulse Control Impulse Control: Intact - Insight and Judgement Insight and Judgement: Poor - Group Participation Particating in Group Activities: Yes - Medication Management Medication Management Adherence: No Assessment - Assessment Merits Inpatient Hospitalization: For Stabilization, For Discharge Planning Inpatient DSM-V Dx: F29 Clinical Impression: 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 Patient currently admitted due to worsening of her symptoms and has not been consistent with her compliance. Patient has also been uncooperative with treatment plan and treatment was taken to the court for treatment over objection. Patient is a danger to self if discharged hence medications are being adjusted and symptoms will be stabilized on inpatient. Plan - Plan Treatment Plan: Name: YOLANDA STANFORD Birthdate: 1990 [id number] Patient will be continued with current medications, was given first dose of Invega Sustena 234 mg Im on 12/06/17 IM and second dose on 156 mg 12/10/17. Continue with other medications and was encouraged to comply with Depakote or have discussion around other mood stabilizer to help with her mood and behavioral dysregulation. Patient would not agree to have conversation about medications and is resistant and rationalizes not to use any medication. TEGAN and Lyme titers were with in normal limits. Will continue to monitor for improvement and side effects. Will transfer patient to a state facility for further stabilization. patient encouraged to participate in groups, milieu and individual therapy. Medications: Current Medications Acetaminophen (Tylenol Tab*) 650 mg PO Q4H PRN PRN Reason: for pain; or Temp >101 F Last Admin: 12/07/17 13:54 Dose: 650 mg Al Hydrox/Mg Hydrox/Simethicone (Maalox Plus*) 30 ml PO Q4H PRN PRN Reason: INDIGESTION Chlorpromazine HCl (Thorazine Tab*) 50 mg PO Q6H PRN PRN Reason: AGITATION Last Admin: 12/08/17 20:54 Dose: 50 mg Divalproex Sodium (Depakote Er Tab(*)) 1,000 mg PO BEDTIME ERNESTO Last Admin: 12/26/17 20:44 Dose: Not Given Ibuprofen (Motrin Tab*) 600 mg PO Q6H PRN PRN Reason: PAIN Last Admin: 12/15/17 13:35 Dose: 600 mg Magnesium Hydroxide (Milk Of Magnesia Liq*) 30 ml PO Q2H PRN PRN Reason: CONSTIPATION
--- NOTE | 2017-12-27 15:59 | PN ---
MHU: Group Therapy Note - Service Type Service Type: [id number] Group Psychotherapy - Group Participation Patient Participating in Group: Yes Level of Group Participation: Attentive, Non-participatory Relatedness to Group: Defended, Well Related - Lita did not participate, but she was very attentive. She appeared to be struggling to follow the group content, but at the end stated it was very helpful. - Additional Group Comments Group Comments: Lita sat on the couch at the edge of the milieu, but she did make eye contact and seemed to be interested in the topic.
[2017-12-27] MEDS: Divalproex ER TAB(*) 500 MG PO SCH (23:16)
--- NOTE | 2017-12-28 12:04 | PN ---
Subjective - Subjective Date of Service: 12/28/17 Service Type: 73455 Hosp care 15 min low complexity Subjective: Patient was seen by self, discussed with treatment team, chart was reviewed. Patient with similar presentation, has been non compliant with her PO medications, patient is on Invega IM Q monthly. No reported side effects but continues to respond to medications with some improvement but residual psychosis and mood and emotional instability. Patient is not able to appreciate effect of medication and was calmer today and less disorganized. Patient has intermittent out of reality psychotic experience and disorganized thinking at times. Patient reports that he meeting with her grand father went fine. Patient continues to have residual paranoid delusional and trust issues. Patient sleeping was fine. Patient eating has been fair. Patient behavior has been in control with no agitation and aggression . Patient reports no suicidal or homicidal ideation. No hallucinations reported. Patient was educated again about her medications and possibility of changes in medications, patient was not acceptive of conversation around Depakote but agreed to take medication ( Hydroxyzine) as needed for anxiety. As patient reports having fearful from her past and also how it affects future but did not elaborate further and was stressed to discuss it further. Patient has been refusing to take any oral medication for now. Objective - Appearance Appearance: Thin Framed Dysmorphic Features: No Hygiene: Normal Grooming: Fairly Well Kept - Behavior Psychomotor Activities: Normal Exhibits Abnormal Movement: No - Attitude and Relatedness Attitude and Relatedness: Superficially Cooperative Eye Contact: Fair - Speech Quality: Unpressured Latencies: Long Quantity: Terse - Mood Patient's Decription of Mood: "Okay" - Affect Observed Affect: Constricted Affect Consistent with: Euthymia - Thought Process Patient's Thought Process: Goal Directed Thought Content: Yes Paranoid Ideation, No Passive Wish, No Suicidal Planning, No Homicidal Ideation - Sensorium Experiencing Hallucinations: No, Sensorium is Clear Type of Hallucinations: Visual: No, Auditory: No, Command: No - Level of Consciousness Level of Consciousness: Alert Orientation: Yes Intact, Yes Orientated to Time, Yes Orientated to Place, Yes Orientated to Person - Impulse Control Impulse Control: Intact - Insight and Judgement Insight and Judgement: Poor - Group Participation Particating in Group Activities: Yes - Medication Management Medication Management Adherence: Partial Assessment - Assessment Merits Inpatient Hospitalization: For Immediate Safety, For Stabilization, For Discharge Planning Inpatient DSM-V Dx: F29 Clinical Impression: Patient with 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 Patient currently admitted due to worsening of her symptoms and has not been consistent with her compliance. Patient has also been uncooperative with treatment plan and treatment was taken to the court for treatment over objection. Patient is a danger to self if discharged hence medications are being adjusted and symptoms will be stabilized on inpatient. Plan - Plan Treatment Plan: Name: YOLANDA STANFORD Birthdate: 1990 [id number] Patient will be continued with current medications, was given first dose of Invega Sustena 234 mg Im on 12/06/17 IM and second dose on 156 mg 12/10/17. Continue with other medications and was encouraged to comply with Depakote or have discussion around other mood stabilizer to help with her mood and behavioral dysregulation. Patient would not agree to have conversation about medications and is resistant and rationalizes not to use any medication. Will start Hydroxyzine as needed for anxiety. TEGAN and Lyme titers were with in normal limits. Will continue to monitor for improvement and side effects. Will transfer patient to a state facility for further stabilization. patient encouraged to participate in groups, milieu and individual therapy. Medications: Current Medications Acetaminophen (Tylenol Tab*) 650 mg PO Q4H PRN PRN Reason: for pain; or Temp >101 F Last Admin: 12/07/17 13:54 Dose: 650 mg Al Hydrox/Mg Hydrox/Simethicone (Maalox Plus*) 30 ml PO Q4H PRN PRN Reason: INDIGESTION Chlorpromazine HCl (Thorazine Tab*) 50 mg PO Q6H PRN PRN Reason: AGITATION Last Admin: 12/08/17 20:54 Dose: 50 mg Divalproex Sodium (Depakote Er Tab(*)) 1,000 mg PO BEDTIME ERNESTO Last Admin: 12/27/17 23:16 Dose: Not Given Ibuprofen (Motrin Tab*) 600 mg PO Q6H PRN PRN Reason: PAIN Last Admin: 12/15/17 13:35 Dose: 600 mg Magnesium Hydroxide (Milk Of Magnesia Liq*) 30 ml PO Q2H PRN PRN Reason: CONSTIPATION
[2017-12-28] MEDS ORDERED: hydrOXYzine HCL TAB* 50 MG PO PRN (12:05)
[2017-12-28] MEDS: Divalproex ER TAB(*) 500 MG PO SCH (20:23)
--- NOTE | 2017-12-28 21:21 | CONS ---
CC: Dr. Ratna Ye NEUROLOGY CONSULT REPORT: DATE OF CONSULT: 12/28/17 PRIMARY CARE PHYSICIAN: Dr. Ratna Ye. REQUESTING PHYSICIAN: Dr. Mimi Narayan REASON FOR CONSULT: History of Chiari malformation and questionable numbness in hands. HISTORY OF PRESENT ILLNESS: The patient is a 27-year-old right-handed female, who is currently in the mental health unit on the second floor for unstable mood and psychosis. Apparently, she has a history of Chiari malformation in the past and there have been some reports of numbness in hands and that is why per the request of her family, Neurology was consulted. Upon careful questioning of the patient's symptoms, it turns out that the patient does not really report a tingling or numbness in the hands or feet, but she reports a "sensitive skin" all over the body, chest, back and arms. When asked exactly what "sensitivity" means, she is not able to elaborate on that. She says that sometimes she does not know what to do with a pen she is holding and she loses the flow of her thoughts and she is not able to continue "using the pen". She denies any bowel or bladder incontinence; any pain in the back, in the neck, or headache. Similarly, no other neurological symptoms are present. When asked about the history of her Chiari malformation she says it was found by an MRI and she has seen several neurologists. She says that one of her neurologists was a head of a research in [place]. She says that she had MRIs before and was told that nothing needs to be done for her Chiari. PAST MEDICAL HISTORY: The patient has unstable mood and psychosis with traumatic past and is under the care of the mental health clinicians. She also has history of suicidal ideation and cutting of her wrist in the past. FAMILY HISTORY: Mother has a history of bipolar disorder. Brother has history of depression and her maternal grandmother history of Alzheimer's disease. SOCIAL HISTORY: The patient was a student at [employer] in the past. She occasionally drinks. No history of smoking or drug use. REVIEW OF SYSTEMS: A complete review of systems was reviewed and other than what mentioned above was negative. PHYSICAL EXAM: Vitals: Blood pressure 121/63, temperature 98, respiratory rate 18, pulse rate 83, O2 sat 100% on room air. The patient is awake and in no acute distress. She is fairly cooperative with exam. Pupils are symmetric and reactive to light. Extraocular movements are intact. Visual newman are intact by confrontation. V1 to V3 is intact to light touch and pinprick. Tongue is in midline. Palates elevates upwards. The patient's strength is 5/5 throughout other than some give way weakness in the deltoids bilaterally, but with encouragement, she gives 5/5 strength. Sensation is intact to light touch , pinprick, and vibration in the upper and lower extremities and is symmetric. [id number] is intact bilaterally. Senx-aw-gonw is intact bilaterally. When attempting examine her deep tendon reflexes, even with very a mild touch of the hammer, the patient elevates and jumps her extremities, with movement of the whole extremity which does not resemble an increased reflex. In addition, there is no clonus when her joint are examined; therefore, I think this is more of a behavioral reaction. The Romberg test is negative. Gait is narrow based and steady. She can walk on heels, toes, and tandem walk. DIAGNOSTIC STUDIES: The patient has an imaging in her records from 07/14/09, an MRI of the brain, which showed mild Chiari 1 malformation, otherwise normal. ASSESSMENT AND PLAN: The patient is a 27-year-old female with history of psychiatric disorders, who has a history of mild Chiari malformation. Currently , the patient's neurological exam is completely unremarkable and there are no signs or symptoms suggestive of symptomatic Chiari or worsening of her mild Chiari. In previous imaging, her Chiari was in the mild degree. She states that she had more recent MRIs. We will try to obtain the records from the more recent MRIs. If the recent MRI is more than 1 year old, then maybe getting a new MRI for reassurance and followup might be indicated, otherwise clinically there is currently no neurological findings concerning for Chiari. The above was discussed with Dr. Narayan. [id number]/[facility] #: [id number] FILIPPO
[2017-12-29] MEDS: Divalproex ER TAB(*) 500 MG PO SCH (22:12)
--- NOTE | 2017-12-30 16:00 | PN ---
Subjective - Subjective Date of Service: 12/30/17 Service Type: 70089 Hosp care 15 min low complexity Subjective: Yoalnda came happily to talk with the jingle writer but her thoughts are still disorganized to an extent. Writing the names of many artists and one of them has stollen her ideas and thoughts. She mate a cross like keri on her throat to indicate that her thoughts are stollen. Moderately pressured and tangential but much pleasant than I saw her last week. Objective - Appearance Appearance: Healthy Appearing, Thin Framed Dysmorphic Features: No Hygiene: Normal Grooming: Well Kept - Behavior Psychomotor Activities: Normal Exhibits Abnormal Movement: No - Attitude and Relatedness Attitude and Relatedness: Cooperative Eye Contact: Good - Speech Quality: Pressured Latencies: Short Quantity: Copious - Mood Patient's Decription of Mood: "Anxious" - Affect Observed Affect: Tense Affect Consistent with: Dysphoria - Thought Process Patient's Thought Process: Coherent, Disorganized, Loose Associations Thought Content: No Passive Wish, No Suicidal Planning, No Homicidal Ideation, No Paranoid Ideation - Sensorium Experiencing Hallucinations: No, Sensorium is Clear Type of Hallucinations: Visual: No, Auditory: No, Command: No - Level of Consciousness Level of Consciousness: Alert Orientation: Yes Intact, Yes Orientated to Time, Yes Orientated to Place, Yes Orientated to Person - Impulse Control Impulse Control: Tenuous - Insight and Judgement Insight and Judgement: Impaired - Group Participation Particating in Group Activities: No - Medication Management Medication Management Adherence: Yes Assessment - Assessment Merits Inpatient Hospitalization: For Immediate Safety, For Stabilization, Pending Safe DC Plan Inpatient DSM-V Dx: F29 Clinical Impression: Still symptomatic with disorganization of thoughts paranoid delussions that her thoughts are stolen and she is not ready for discharge. Plan - Plan Treatment Plan: Name: YOLANDA STANFORD Birthdate: 1990 [id number] Continued Medication Management: Continue Outpt Medication Medications: Current Medications Acetaminophen (Tylenol Tab*) 650 mg PO Q4H PRN PRN Reason: for pain; or Temp >101 F Last Admin: 12/07/17 13:54 Dose: 650 mg Al Hydrox/Mg Hydrox/Simethicone (Maalox Plus*) 30 ml PO Q4H PRN PRN Reason: INDIGESTION Chlorpromazine HCl (Thorazine Tab*) 50 mg PO Q6H PRN PRN Reason: AGITATION Last Admin: 12/08/17 20:54 Dose: 50 mg Divalproex Sodium (Depakote Er Tab(*)) 1,000 mg PO BEDTIME ERNESTO Last Admin: 12/29/17 22:12 Dose: Not Given Hydroxyzine HCl (Atarax Tab*) 50 mg PO Q6H PRN PRN Reason: ANXIETY Ibuprofen (Motrin Tab*) 600 mg PO Q6H PRN PRN Reason: PAIN Last Admin: 12/15/17 13:35 Dose: 600 mg Magnesium Hydroxide (Milk Of Magnesia Liq*) 30 ml PO Q2H PRN PRN Reason: CONSTIPATION - Discharge Plan Discharge Plan: Consider Longer Term Tx - [facility]
[2017-12-30] MEDS: Divalproex ER TAB(*) 500 MG PO SCH (20:48)
[2017-12-31 08:28] VITALS: BP 117/61
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
== END 2017-12-31 12:45 | DRG 751 ==
LOC: ED 09:57 → BSU 11-16 13:57
PROVIDERS: ADMIT Psychiatry & Neurology Psychiatry; ATTEND Psychiatry & Neurology Psychiatry
DX: F29 Unspecified psychosis not due to a substance or known physiological condition (principal); F43.10 Post-traumatic stress disorder, unspecified; F32.81 Premenstrual dysphoric disorder; Z62.810 Personal history of physical and sexual abuse in childhood; G40.909 Epilepsy, unspecified, not intractable, without status epilepticus; F06.8 Other specified mental disorders due to known physiological condition; F31.2 Bipolar disorder, current episode manic severe with psychotic features; S01.112A Laceration without foreign body of left eyelid and periocular area, initial encounter; W18.30XA Fall on same level, unspecified, initial encounter; Y92.230 Patient room in hospital as the place of occurrence of the external cause; Q07.00 Arnold-Chiari syndrome without spina bifida or hydrocephalus; Z81.8 Family history of other mental and behavioral disorders; Z81.1 Family history of alcohol abuse and dependence
CPT/HCPCS: 36415; 70450; 80048; 80053; 80061; 80307; 80320; 80329; 81003; 81015; 82550; 83036; 84443; 84702; 85025; 86038; 86140; 86618; 86631; 86632; 86803; 87086; 90715; 90853; 93005; 95819; 99222; 99231; 99232; 99233; 99238; 99284; A9270-GY; G0480; J1200; J1630; J2060; J2426

== ENCOUNTER 2019-08-14 11:37 | Emergency (ER) | payer BC, MEDICAID ==
--- OUTSIDE RECORDS SUMMARY | 2019-08-14 12:17 | XMS REPORT ---
:1990 Author Organization [facility] Care Team Providers Name Role Phone Borismaira Jennifer Primary Care Physician Unavailable Allergies, Adverse Reactions, Alerts Allergy Code CodeSystem Reaction Severity Criticality Status Start Substance Date Moderate Medications Medication Medication Medication Start Stop Route Dose Status Fill Code CodeSystem Date Date Instructions divalproex 7291303 RxNorm 2019- oral 500 mg 1 completed Take 1 tablet 4-03 06-26 tablet at bedtime extended for 30 day(s) release 24 hr at bedtime clozapine [id number] RxNorm 2018- oral 200 mg 1 completed Take 1 tablet 4-03 05-15 tablet at at bedtime bedtime for 7 day(s) clozapine [id number] RxNorm 2018-05 oral 25 mg 2 active Take 2 tablet 0-16 tablet at at bedtime bedtime for 14 day(s) divalproex [id number] RxNorm 2019- oral 250 mg 1 completed Take 1 tablet 4-03 06-26 tablet at bedtime extended for 30 day(s) release 24 hr at bedtime clozapine [id number] RxNorm 2018- oral 25 mg 3 completed Take 3 tablet 8-06 10-16 tablet at at bedtime bedtime for 14 day(s) clozapine [id number] RxNorm 2018-05 oral 100 mg 1 active Take 1 tablet 0-16 tablet at at bedtime bedtime for 14 day(s) clozapine [id number] RxNorm 2019- oral 100 mg 1 completed Take 1 tablet 4-03 05-15 tablet at at bedtime bedtime for 7 day(s) clozapine [id number] RxNorm 2018- oral 200 mg completed for 7 2- 04-03 tablet day(s) divalproex [id number] RxNorm oral 500 mg 1 active Take 1 tablet 9-27 tablet at bedtime extended for 30 day(s) release 24 hr at bedtime clozapine [id number] RxNorm 2019- oral 100 mg completed for 7 2-27 04-03 tablet day(s) divalproex [id number] RxNorm 2018-0 2019- oral 500 mg completed for 30 2-27 04-03 tablet day(s) extended release 24 hr clozapine [id number] RxNorm 2018- 2019- oral 200 mg 1 completed Take 1 tablet 5-16 08-06 tablet at by mouth at bedtime bedtime for 14 day(s) divalproex [id number] RxNorm oral 250 mg 1 active Take 1 tablet 6-26 tablet at bedtime extended for 30 day(s) release 24 hr at bedtime divalproex [id number] RxNorm 2018- 2019- oral 250 mg 1 completed Take 1 tablet 6-26 09-24 tablet at bedtime extended for 30 day(s) release 24 hr at bedtime clozapine [id number] RxNorm 2018-0 2019- oral 100 mg completed for 28 5-16 05-16 tablet day(s) clozapine [id number] RxNorm 2018-0 2019- oral 100 mg 1 completed Take 1 tablet 8-06 10-16 tablet at at bedtime bedtime for 14 day(s) divalproex [id number] RxNorm 0 2019- oral 250 mg completed for 30 2-27 04-03 tablet day(s) extended release 24 hr Problems Problem Name Code CodeSystem Alternate Alternate Start End Status Narrative Code CodeSystem Date Date Bipolar [id number] SNOMED-CT 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 Counseling and/o SNOMED-CT () 2018-11-27 complete Mental d Health- [address], [id number] SNOMED-CT () 2018-09-04 complete Mental d Health- [address], [id number] SNOMED-CT () 2018-08-28 complete Mental d Health- [address], [id number] SNOMED-CT () 2018-09-11 complete Mental d Health- [address], [id number] [id number] Psychotherap [id number] SNOMED-CT () 2018-12-17 complete Mental y, 45 04 d Health- minutes with [address], [id number] Psychotherap [id number] SNOMED-CT () 2019-01-13 complete Mental y, 45 04 d Health- minutes with [address], [id number] Psychotherap [id number] SNOMED-CT () 2019-02-07 complete Mental y, 45 04 d Health- minutes with [address], [id number] [id number] Psychotherap [id number] SNOMED-CT () 2019-02-21 complete Mental y, 45 04 d Health- minutes with [address], [id number] [id number] Psychotherap [id number] SNOMED-CT () 2019-03-21 complete Mental y, 45 04 d Health- minutes with [address], [id number] [id number] Psychotherap [id number] SNOMED-CT () 2019-05-07 complete Mental y, 45 04 d Health- minutes with [address], [id number] [id number] Psychotherap [id number] SNOMED-CT () 2019-05-22 complete Mental y, 45 04 d Health- minutes with [address], [id number] [id number] Psychotherap [id number] SNOMED-CT () 2019-06-11 complete Mental y, 45 04 d Health- minutes with [address], [id number] [id number] Office or [id number] SNOMED-CT () 2018-09-17 complete Mental other 7 d Health- outpatient [facility] visit for [address], established [id number] patient, [id number] which requires at least 2 of these 3 joaquin components: An expanded problem focused history; An expanded problem focused examination; Medical decision making of low Office or [id number] SNOMED-CT () 2019-06-12 complete Mental other 7 d Health- outpatient [facility] visit for [address], established [id number] patient, [id number] which requires at least 2 of these 3 joaquin components: An expanded problem focused history; An expanded problem focused examination; Medical decision making of low Office or [id number] SNOMED-CT () 2019-03-12 complete Mental other 7 d Health- outpatient [facility] visit for [address], established [id number] patient, [id number] which requires at least 2 of these 3 joaquin components: An expanded problem focused history; An expanded problem focused examination; Medical decision making of low Office or [id number] SNOMED-CT () 2018-12-31 complete Mental other 7 d Health- outpatient [facility] visit for [address], established [id number] patient, [id number] which requires at least 2 of these 3 joaquin components: An expanded problem focused history; An expanded problem focused examination; Medical decision making of low SNOMED-CT () 2018-09-17 complete Mental d Health- [place] [address], [id number] [id number] Office or [id number] SNOMED-CT () 2018-11-20 complete Mental other 6 d Health- outpatient [facility] visit for [address], established [id number] patient, [phone] which requires at least 2 of these 3 joaquin components: A problem focused history; A problem focused examination; Straightforw nima medical decision making. Counselin Office or [id number] SNOMED-CT () 2019-05-07 complete Mental other 6 d Health- outpatient [facility] visit for [facility] [address] [facility], management [place], of [facility], established [id number] patient, [id number] which requires at least 2 of these 3 joaquin components: A problem focused history; A problem focused examination; Straightforw nima medical decision making. Counselin Encounters/Encounter Diagnoses Encounter Name Encounter Diagnosis Diagnosis Diagnosis Date of Service Code Code Name CodeSystem Diagnosis Delivery Location Established [id number] Bipolar SNOMED-CT 2019-06-12 Behavioral patient 1529 affective Health minutes disorder, Clinic [address] [place], [place], [id number] Vital Signs No Information Social History Element Description Description Start End Code CodeSystem AdditionalInfo Date Date SexAssignedAtBirth Female F AdministrativeGender 08-26 Hospital Discharge Instructions Reason For Referral Medical Equipment FDA Assessments
--- OUTSIDE RECORDS SUMMARY | 2019-08-14 12:17 | XMS REPORT ---
:1990 Author Organization [facility] Care Team Providers Name Role Phone BorisFatimah raoorah Primary Care Physician Unavailable Allergies, Adverse Reactions, Alerts Allergy Code CodeSystem Reaction Severity Criticality Status Start Substance Date Moderate Medications Medication Medication Medication Start Stop Route Dose Status Fill Code CodeSystem Date Date Instructions divalproex 5006470 RxNorm 20190 oral 500 mg 1 active Take 1 tablet 9-27 tablet at bedtime extended for 30 day(s) release 24 hr at bedtime clozapine 399139 RxNorm 2018-05 oral 25 mg 2 active Take 2 tablet 0-16 tablet at at bedtime bedtime for 14 day(s) clozapine 168693 RxNorm 2019- oral 200 mg 1 completed Take 1 tablet 5-16 08-06 tablet at by mouth at bedtime bedtime for 14 day(s) divalproex 0374703 RxNorm 2019- oral 500 mg completed for 30 2-27 04-03 tablet day(s) extended release 24 hr clozapine 089191 RxNorm 2018-05 oral 100 mg 1 active Take 1 tablet 0-16 tablet at at bedtime bedtime for 14 day(s) divalproex 4069129 RxNorm 2019 2019- oral 500 mg 1 completed Take 1 tablet 4-03 06-26 tablet at bedtime extended for 30 day(s) release 24 hr at bedtime divalproex 5285379 RxNorm 2019- oral 250 mg completed for 30 2-27 04-03 tablet day(s) extended release 24 hr clozapine 009658 RxNorm 2019- oral 100 mg completed for 7 2-27 04-03 tablet day(s) clozapine 206512 RxNorm 2019- oral 200 mg completed for 7 2-27 04-03 tablet day(s) clozapine 136226 RxNorm 2019- oral 100 mg 1 completed Take 1 tablet 4-03 05-15 tablet at at bedtime bedtime for 7 day(s) clozapine 451617 RxNorm 2019- oral 200 mg 1 completed Take 1 tablet 4-03 05-15 tablet at at bedtime bedtime for 7 day(s) clozapine 124548 RxNorm 2019- oral 25 mg 3 completed Take 3 tablet 8-06 10-16 tablet at at bedtime bedtime for 14 day(s) divalproex 7901895 RxNorm oral 250 mg 1 active Take 1 tablet 6-26 tablet at bedtime extended for 30 day(s) release 24 hr at bedtime divalproex 1465749 RxNorm 2019- oral 250 mg 1 completed Take 1 tablet 4-03 06-26 tablet at bedtime extended for 30 day(s) release 24 hr at bedtime clozapine 416511 RxNorm 2019- oral 100 mg 1 completed Take 1 tablet 8-06 10-16 tablet at at bedtime bedtime for 14 day(s) divalproex 1417044 RxNorm 2019- oral 250 mg 1 completed Take 1 tablet 6-26 09-24 tablet at bedtime extended for 30 day(s) release 24 hr at bedtime clozapine 261391 RxNorm 2019- oral 100 mg completed for 28 5-16 05-16 tablet day(s) Problems Problem Name Code CodeSystem Alternate Alternate Start End Status Narrative Code CodeSystem Date Date Bipolar 46143900 SNOMED-CT Active affective 3-22 disorder, unspecified Relevant diagnostic tests/laboratory data Narrative No Information Procedures Procedure Code CodeSystem Target Date of Status Service Device Device Device Name Site Procedure Delivery Code Name UID Location SNOMED-CT () 2018-11-27 complete Mental d Health- [address], [id number] Psychotherap [id number] SNOMED-CT () 2019-01-13 complete Mental y, 45 04 d Health- minutes with [place] patient [address], [id number] [id number] Office [place] [id number] SNOMED-CT () 2018-10-23 complete Mental other 8 d Health- outpatient [place] visit for [address], [place], established [id number] patient, [phone] which requires at least 2 of these 3 joaquin components: A detailed history; A detailed examination; Medical decision making of moderate complexity. Counseling and/o Office or [id number] SNOMED-CT () 2019-06-12 complete Mental other 7 d Health- outpatient [place] visit for [address], established [id number] patient, [phone] which requires at least 2 of these 3 joaquin components: An expanded problem focused history; An expanded problem focused examination; Medical decision making of [facility] Psychotherap [id number] SNOMED-CT () 2019-06-11 complete Mental y, 45 04 d Health- minutes with [place] patient [address], [id number] [phone] Psychotherap [id number] SNOMED-CT () 2019-05-22 complete Mental y, 45 04 d Health- minutes with [place] patient [address], [id number] [phone] SNOMED-CT () 2018-09-17 complete Mental d Health- [place] [address], [id number] [id number] Office or [id number] SNOMED-CT () 2018-09-17 complete Mental other 7 d Health- outpatient [place] visit for [address], [facility] [id number] patient, [phone] which requires at least 2 of these 3 joaquin components: An expanded problem focused history; An expanded problem focused examination; Medical decision making of [facility] Office or [id number] SNOMED-CT () 2019-05-07 complete Mental other 6 d Health- outpatient [place] visit for [address], established [id number] patient, [phone] which requires at least 2 of these 3 joaquin components: A problem focused history; A problem focused examination; Straightforw nima medical decision making. Counselin Psychotherap [id number] SNOMED-CT () 2019-03-21 complete Mental y, 45 04 d Health- minutes with [place] patient [address], [id number] [phone] Office or [id number] SNOMED-CT () 2019-03-12 complete Mental other 7 d Health- outpatient [place] visit for [address], established [id number] patient, [phone] which requires at least 2 of these 3 joaquin components: An expanded problem focused history; An expanded problem focused examination; Medical decision making of low Psychotherap [id number] SNOMED-CT () 2019-05-07 complete Mental y, 45 04 d Health- minutes with [place] patient [address], [id number] [phone] SNOMED-CT () 2018-09-04 complete Mental d Health- [address], [id number] [id number] Office or [id number] SNOMED-CT () 2018-12-31 complete Mental other 7 d Health- outpatient [place] visit for [address], [facility], established [id number] patient, [phone] which requires at least 2 of these 3 joaquin components: An expanded problem focused history; An expanded problem focused examination; Medical decision making of low SNOMED-CT () 2018-08-28 complete Mental d Health- [address], [id number] [id number] Psychotherap [id number] SNOMED-CT () 2018-12-17 complete Mental y, 45 04 d Health- minutes with [place] patient [address], [id number] [phone] Psychotherap [id number] SNOMED-CT () 2019-02-21 complete Mental y, 45 04 d Health- minutes with [place] patient [address], [id number] [id number] SNOMED-CT () 2018-09-11 complete Mental d Health- [address], [id number] [id number] Psychotherap [id number] SNOMED-CT () 2019-02-07 complete Mental y, 45 04 d Health- minutes with [place] patient [address], [id number] [phone] Psychotherap [id number] SNOMED-CT () 2019-06-25 complete Mental y, 45 04 d Health- minutes with [place] patient [address], [id number] [phone] Office or [id number] SNOMED-CT () 2018-11-20 complete Mental other 6 d Health- outpatient [place] visit for [address], [facility], of an [facility] established [id number] patient, [phone] which requires at least 2 of these 3 joaquin components: A problem focused history; A problem focused examination; Straightforw nima medical decision making. Counselin Encounters/Encounter Diagnoses Encounter Name Encounter Diagnosis Diagnosis Diagnosis Date of Service Code Code Name CodeSystem Diagnosis Delivery Location Psychotherapy - 57576 [id number] Bipolar SNOMED-CT 2019-06-25 Behavioral Individual 30 affective Health min disorder, [place] [address] unspecified [place], [place], [phone] Vital Signs No Information Social History Element Description Description Start End Code CodeSystem AdditionalInfo Date Date SexAssignedAtBirth Female 1990- F AdministrativeGender 08-26 Hospital Discharge Instructions Reason For Referral Medical Equipment FDA Assessments
--- OUTSIDE RECORDS SUMMARY | 2019-08-14 12:17 | XMS REPORT | Continuity of Care Document ---
:1990 External Reference #:[id number] Author Name Nona Mata M.D. Address [address] [place] [address] Problems Active Problems Provider Date Cough Nona Mata M.D. Onset: 06/20/2019 Allergic rhinitis Nona Mata M.D. Onset: 06/20/2019 Social History Type Date Description Comments Sex Unknown ETOH Use Occasionally consumes alcohol Recreational Drug Use Denies Drug Use Tobacco Use Start: Unknown Patient has never smoked Allergies, Adverse Reactions, Alerts Active Allergies Reaction Severity Comments Date Penicillin Seizure, Fever 06/20/2019 Risperidone 06/20/2019 Medications Active Medications SIG Qnty Indications Ordering Date Provider Symbicort 2 puffs inhalation 10.200gm [facility] Nona Perdomo 06/20/2019 twice a day Hattie Mata 80-4.5mcg/Act Aerosol Ventolin HFA 2 puffs inhalation 18gm R05 Nona Conor 06/20/2019 every 4 hours as Hattie Mata 108(90Base) mcg/Act needed Aerosol Clozapine daily Unknown 100mg Tablets Depakote 750mg at night Unknown 500mg Tablets DR Garcia daily Unknown 40mg Tablets Immunizations Description No Information Available Vital Signs Date Vital Result Comment 06/20/2019 1:37pm Height 65 inches 5'5" Weight 178.00 lb Weight 80.741 kg Respiratory Rate 20 /min Heart Rate 93 /min O2 % BldC Oximetry 97 % BP Systolic 107 mmHg BP Diastolic 62 mmHg Asthma Control Test 21 BMI (Body Mass Index) 29.6 kg/m2 Results Description No Information Available Procedures Date Code Description Status 06/20/2019 81682 Nitric Oxide Gas Determination Completed 06/20/2019 18817 Pulmonary Function Test Completed Medical Devices Description No Information Available Encounters Type Date Location Provider Dx Diagnosis Office Visit 06/20/2019 [place] Nona Mata, J30.9 Allergic rhinitis, 1:20p M.D. unspecified R05 Cough Assessments Date Code Description Provider 06/20/2019 J30.9 Allergic rhinitis, unspecified Nona Mata M.D. 06/20/2019 R05 Cough Nona Mata M.D. Plan of Treatment Future Appointment(s):07/11/2019 4:00 pm - [id number] - Nona Mata M.D.J30.9 Allergic rhinitis, unspecifiedNew Labs: Rast Cat Dander E1, Ordered: 06/20/19Rast Dog Dander E2, Ordered: 06/20/19Rast D Farinae, Ordered: 06/20/19Rast Dust Mite Pteronyssinus, Ordered: 06/20/19Rast Common Silver Birch T3, Ordered: 06/20/19Rast [place] (White) T7, Ordered: Rast Maple [place] T1, Ordered: 06/20/19Rast White Long T15, Ordered: Rast Hyden T16, Ordered: 06/20/19Rast Pecan/[place] Tree T22, Ordered: Rast Dalton Am,T11-Not Maple, Ordered: 06/20/19Rast Elgin T12, Ordered : 06/20/19Rast Will Grass G6, Ordered: 06/20/19Rast Orchard Grass G3, Ordered : 06/20/19Rast Ragweed Short (Common), Ordered: 06/20/19Rast Alvarez Elder Rough, Ordered: 06/20/19Rast Common Pigweed, Ordered: 06/20/19Rast Cocklebur, Ordered: 06/20/19Rast Johnson's Quarters w10, Ordered: 06/20/19Rast Plantain, Persian W9, Ordered: 06/20/19Rast Alternaria Tenuis, Ordered: 06/20/19Rast Aspergillus Fumigatus, Ordered: 06/20/19Rast Cladosporium/Horm Herbaru, Ordered: Rast Helminthosporium Halodes, Ordered: 06/20/19Recommendations:skin testing deferred due to current symptoms check IgE to environmental allergens - see [id number] CoughNew Medication:Symbicort 80-4.5 mcg/Act - 2 puffs inhalation twice a dayVentolin HFA 108(90 Base) mcg/Act - 2 puffs inhalation every 4 hours as neededNew Labs:CBC With Diff, Ordered: 06/20/19Immunoglobulin M (Igm), Ordered: 06/20/19Igg Blood, Ordered: 06/20/19Immunoglobulin A (Iga), Ordered: Pneumococcal Abs 14 Type, Ordered: 06/20/19Haemophilus Influenza B Igg An , Ordered: 06/20/19Tetanus AB Ser QL, Ordered: 06/20/19Diphtheria AB Igg, Ordered: 06/20/19Ige Total, Ordered: 06/20/19Alpha-1 Antitrypsin, Ordered: 06/20Follow up:2-3 weeks, *DISCUSSION: After the evaluation is completed, the results and treatment choices will beexplained.Recommendations:Refrain from wearing perfumes/scented colognes while visiting our office. Leigha Full PFT start Symbicort 80/4.5 - use 2 puffs twice daily okay to use Albuterol - Ventolin 2 puffs every 4 hours as neededfor cough, shortness of breath or chest tightness Functional Status Description No Information Available Mental Status Description No Information Available Referrals Description No Information Available
--- OUTSIDE RECORDS SUMMARY | 2019-08-14 12:17 | XMS REPORT | Continuity of Care Document ---
:1990 External Reference #:[id number] Author Name Twyla Sandoval MD (transmitted by agent of provider Alexia Lockett) Address [address] [facility] [place] [place] [address] Care Team Providers Name Role Phone Twyla Sandoval MD - Internal Medicine Care Team Information Health Services Director Problems Active Problems Provider Date Sciatica Howard Dykes M.D. Onset: 12/15/2015 Social History Type Date Description Comments Sex Unknown Tobacco Use Start: Unknown Light tobacco smoker (10 or fewer cigarettes/day) ETOH Use Drinks Alcoholic Beverages Rarely Recreational Drug Use Denies Drug Use Tobacco Use Start: Unknown Patient is a current smoker, smokes some days Smoking Status Reviewed: 07/01/19 Patient is a current smoker, smokes some days Exercise Type/Frequency Exercises regularly Allergies, Adverse Reactions, Alerts Active Allergies Reaction Severity Comments Date Penicillin 12/15/2015 Risperdal Hives 12/23/2018 Benadryl 01/03/2019 Medications Active Medications SIG Qnty Indications Ordering Date Provider Sandie 1 by mouth with 750 60tabs Azalia Bazan, 02/17/2019 250mg mg tab at night M.D. Tablets DR Hooper 750 mg in the Unknown 500mg evening Tablets DR Reed (52 MG) with progestrone Unknown 20mcg/24HR IUD Clozapine Take 1 Tablet By Unknown 150mg Mouth AT Bedtime Tablets Dispers Probiotic 1 by mouth every Unknown Capsules day Clozapine 1 by mouth at night Unknown 25mg with a 500 mg tab Tablets Magnesium Oxide 1 by mouth every Unknown 250mg day Tablets Immunizations Description No Information Available Vital Signs Date Vital Result Comment 07/01/2019 4:18pm Height 64 inches 5'4" Weight 179.00 lb Heart Rate 90 /min BP Systolic Sitting 127 mmHg BP Diastolic Sitting 74 mmHg Body Temperature 98.1 F O2 % BldC Oximetry 97 % BMI (Body Mass Index) 30.7 kg/m2 05/06/2019 2:26pm Height 63 inches 5'3" Weight 177.25 lb Heart Rate 109 /min BP Systolic 138 mmHg BP Diastolic 86 mmHg Body Temperature 98.4 F O2 % BldC Oximetry 99 % BMI (Body Mass Index) 31.4 kg/m2 Results Test Acquired Date Facility Test Result H/L Range Note CBC Auto 02/17/2019 [facility] White Blood 7.6 10^3/uL Normal 3.5-10.[address] [place] [address] [phone] Red Blood Count 4.31 10^6/uL Normal 3.70-4.87 Hemoglobin 13.1 g/dL Normal 12.0-16.0 Hematocrit 39 % Normal 35-47 Mean Corpuscular Volume 89 fL Normal 80-97 Mean Corpuscular Hemoglobin 30 pg Normal 27-31 Mean Corpuscular HGB Conc 34 g/dL Normal 31-36 Red Cell Distribution Width 14 % Normal 10-15 Platelet Count 240 10^3/uL Normal 150-450 Mean Platelet Volume 9.1 fL Normal 7.4-10.4 Abs Neutrophils 5.2 10^3/uL Normal 1.5-7.7 Abs Lymphocytes 1.3 10^3/uL Normal 1.0-4.8 Abs Monocytes 1.0 10^3/uL High 0-0.8 Abs Eosinophils 0.1 10^3/uL Normal 0-0.6 Abs Basophils 0.1 10^3/uL Normal 0-0.2 Abs Nucleated RBC 0.0 10^3/uL Granulocyte % 67.9 % Lymphocyte % 17.1 % Monocyte % 12.8 % Eosinophil % 1.2 % Basophil % 1.0 % Nucleated Red Blood Cells % 0.1 Laboratory 02/17/2019 [facility] TSH (Thyroid 3.11 Normal 0.34 -5.60 test finding [address] Stim Horm) mcIU/[place] [address] [phone] Free T4 (Free Thyroxine) 0.69 ng/dL Normal 0.61-1.12 Thyroxine 5.85 g/dL Low 6.09-12.23 T3 Free 3.50 pg/mL Normal 2.5-3.9 T3 Total 112 ng/dL Normal 87-178 Thyroperoxidase AB 112.90 IU/mL High <9 Folic Acid (Folate) 8.40 ng/mL >3.99 Insulin Level 15.2 mcIU/mL Normal 2.0-16.0 Vitamin B12 602 pg/mL Normal 180-914 1 Comp Metabolic 02/17/2019 [facility] Sodium 140 mmol/L Normal 135-[address] [place] [address] [phone] Potassium 4.2 mmol/L Normal 3.5-5.0 Chloride 106 mmol/L Normal 101-111 Co2 Carbon Dioxide 24 mmol/L Normal 22-32 Anion Gap 10 mmol/L Normal 2-11 Glucose 98 mg/dL Normal 70-100 Blood Urea Nitrogen 16 mg/dL Normal 6-24 Creatinine 0.82 mg/dL Normal 0.51-0.95 BUN/Creatinine Ratio 19.5 Normal 8-20 Calcium 9.7 mg/dL Normal 8.6-10.3 Total Protein 6.9 g/dL Normal 6.4-8.9 Albumin 4.4 g/dL Normal 3.2-5.2 Globulin 2.5 g/dL Normal 2-4 Albumin/Globulin Ratio 1.8 Normal 1-3 Total Bilirubin 0.40 mg/dL Normal 0.2-1.0 Alkaline Phosphatase 104 U/L Normal 34-104 Alt 9 U/L Normal 7-52 Ast 16 U/L Normal 13-39 Egfr Non- 84.3 >60 Egfr 102.0 >60 2 Laboratory test 02/17/2019 [facility] C Reactive 7.07 mg/L Normal <8.[address] [place] [address] [phone] CRP High Sensitivity 5.94 mg/L High <2.00 Vitamin D Total 25(Oh) 26.2 ng/mL Normal 20-50 3 Thyroglobulin AB 2.4 IU/mL <4.0 Hemoglobin A1c (Glyco HGB) 5.1 % Normal 4.0-5.6 4 Homocysteine 10 mcmol/L 5 Copper, Serum 1.29 g/mL 0.75-1.45 6 Zinc Serum 0.76 g/mL 0.66-1.10 7 Heavy Metal Blool 02/17/2019 [facility] Arsenic 1 ng/mL 0-[address] [place] [address] [phone] Lead <1.0 g/dL 0.0-4.9 9 Mercury 2 ng/mL 0-9 10 Cadmium <0.2 ng/mL 0.0-4.[address] Address See Comment [address] [facility] [address] [facility] MARIO Guardian First Name YOLANDA Hawley Guardian Last Name ABDOULAYE Venous/Capillary Heavy Metals Venous Patient Race UNK Submitting Laboratory 13 Transglutaminase Igg 02/17/2019 [facility] Tissue <1.2 14 & Iga [address] [facility] Transglutaminase IgA U/[place] [address] Ab [phone] Tissue Transglutaminase IgG Ab <1.2 U/mL 15 Laboratory test 02/17/2019 [facility] T3 Reverse 17 ng/dL 10- 24 [address] [place] [address] [phone] Celiac Hla 02/17/2019 [facility] [id number] SEE BELOW [address] [place] [address] [phone] [id number] SEE BELOW 18 Celiac Gene Pairs Present? 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 [address] [facility] [place] [address] [phone] MTHFR Interpretation See Comment 20 MTHFR Reviewed By See Comment 21 MTHFR [id number] Mutation Negative Negative Mthac Interpretation See Comment 22 Mthac Reviewed By See Comment 23 Vitamin B6 02/17/2019 [facility] Pyridoxal 5-Phosphate 6 g/L 5-[address] [place] [address] [phone] Pyridoxic Acid 3 g/L 3-30 25 1 Normal Range 180 to 914 Indeterminate Range 145 to 180 Deficient Range <145 2 Because ethnic data is not always readily available, this report includes an eGFR for both -Americans and non- Americans. The National Kidney Disease Education Program (NKDEP) does not endorse the use of the MDRD equation for patients that are not between the ages of 18 and 70, are , have extremes of body size, muscle mass, or nutritional status, or are non- or non-. According to the National Kidney Foundation, irrespective of diagnosis, the stage of the disease is based on the level of kidney function: Stage Description GFR(mL/min/1.73 m(2)) 1 Kidney damage with normal or decreased GFR 90 2 Kidney damage with mild decrease in GFR 60-89 3 Moderate decrease in GFR 30-59 4 Severe decrease in GFR 15-29 5 Kidney failure <15 (or dialysis) 3 Total 25-Hydroxyvitamin D2 and D3 (25-OH-VitD) <10 ng/mL (severe deficiency) 10-19 ng/mL (mild to moderate deficiency) 20-50 ng/mL (optimum levels) 51-80 ng/mL (increased risk of hypercalciuria) >80 ng/mL (toxicity possible) 4 Therapeutic target for the treatment of diabetes mellitus patients is <7% HBA1C, and in selective patients <6.0%. Please refer to [place] [employer] diabetic care guidelines for further information. 5 REFERENCE VALUE <=13 (Fasting) ADDITIONAL INFORMATION This test was developed and its performance characteristics determined by [facility] in a manner consistent with CLIA requirements. This test has not been cleared or approved by the U.S. Food and Drug Administration. Test Performed by: [facility] - [address] [address] Plant And Maintenance Technician: Dutch Jarrett M.D. Ph.D.; CLIA# [id number] 6 ADDITIONAL INFORMATION This test was developed and its performance characteristics determined by [facility] in a manner consistent with CLIA requirements. This test has not been cleared or approved by the U.S. Food and Drug Administration. Test Performed by: [facility] [address] Plant And Maintenance Technician: Dutch Jarrett M.D. Ph.D.; CLIA# [id number] 7 ADDITIONAL INFORMATION This test was developed and its performance characteristics determined by [facility] in a manner consistent with CLIA requirements. This test has not been cleared or approved by the U.S. Food and Drug Administration. Test Performed by: [facility] [place] [address] Plant And Maintenance Technician: Dutch Jarrett M.D. Ph.D.; CLIA# [id number] 8 ADDITIONAL INFORMATION This test was developed and its performance characteristics determined by [facility] in a manner consistent with CLIA requirements. This test has not been cleared or approved by the U.S. Food and Drug Administration. 9 ADDITIONAL INFORMATION Testing performed by Inductively Coupled Plasma-Mass Spectrometry (ICP-MS). This test was developed and its performance characteristics determined by [facility] in a manner consistent with CLIA requirements. This test has not been cleared or approved by the U.S. Food and Drug Administration. 10 ADDITIONAL INFORMATION This test was developed and its performance characteristics determined by [facility] in a manner consistent with CLIA requirements. This test has not been cleared or approved by the U.S. Food and Drug Administration. 11 ADDITIONAL INFORMATION This test was developed and its performance characteristics determined by [facility] in a manner consistent with CLIA requirements. This test has not been cleared or approved by the U.S. Food and Drug Administration. 12 RESULT: [address] BOTTOM FLOOR 13 Test Performed by: [facility] [place] [address] Plant And Maintenance Technician: Dutch Jarrett M.D. Ph.D.; CLIA# [id number] 14 REFERENCE VALUE <4.0 (Negative) 15 REFERENCE VALUE <6.0 (Negative) Test Performed by: [facility] [place] [address] Plant And Maintenance Technician: Dutch Jarrett M.D. Ph.D.; CLIA# [id number] 16 ADDITIONAL INFORMATION This test was developed and its performance characteristics determined by [facility] in a manner consistent with CLIA requirements. This test has not been cleared or approved by the U.S. Food and Drug Administration. Test Performed by: [facility] [place] [address] Plant And Maintenance Technician: Dutch Jarrett M.D. Ph.D.; CLIA# [id number] 17 RESULT: 02:01,03 REFERENCE VALUE Not Applicable 18 RESULT: 02:02,03:02 DQ Serologic Equivalent: 2,8 REFERENCE VALUE Not Applicable 19 These genes are permissive for celiac disease. The absence of HLA celiac permissive genes would make the presence of celiac disease unlikely. However, these genes can also be present in the normal population. ADDITIONAL INFORMATION Method: Molecular typing of HLA antigens performed using reverse SSOP and/or SSP methods, reported as serological equivalents and low to medium resolution molecular values. Test Performed by: [place] [address] Plant And Maintenance Technician: Dutch Jarrett M.D. 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 MTHFR C677T carriers are not at increased risk for thrombosis in the absence of hyperhomocysteinemia. In the absence of alternative causes, heterozygous carriers of MTHFR C677T are not at increased risk for hyperhomocysteinemia. Hyperhomocysteinemia is a relatively weak risk factor for both venous thromboembolism and arterial thrombosis. The MTHFR C677T gene mutation test does not detect other causes of hyperhomocysteinemia due to acquired disorders (renal failure, zinc deficiency, leukemia, psoriasis, or antifolate drug therapy). If clinically indicated, suggest Coagulation Consultation 19567 (Thrombophila Profile) to complete the evaluation for an inherited or acquired thrombosing disorder (i.e., thrombophilia). Consider genetic consultation and counseling of potentially affected family members regarding laboratory testing. ADDITIONAL INFORMATION This test is a direct mutation analysis using PCR amplification, signal generation and release by cleavage of sequence specific alleles ([employer], [place], [place], [place]). This test has been modified from the weight count operator's instructions. Its performance characteristics were determined by [facility] in a manner consistent with CLIA requirements. This test has not been cleared or approved by the U.S. Food and Drug Administration. 21 RESULT: ISABEL Caruso 22 This individual DOES NOT have the Methylenetetrahydrofolate reductase (MTHAC) L8868E gene mutation. In the absence of the MTHAC A4099R gene mutation, other causes of hyperhomocysteinemia should be considered (renal failure, zinc deficiency, leukemia, psoriasis, or antifolate drug therapy). If clinically indicated, suggest Coagulation Consultation 64251 (Thrombophilia Profile) to complete the evaluation for an inherited or acquired thrombosing disorder (i.e., thrombophilia). Consider genetic consultation and counseling of potentially affected family members regarding laboratory testing. ADDITIONAL INFORMATION This test is a direct mutation analysis using PCR amplification, signal generation and release by cleavage of sequence specific alleles ([employer], [place], [place], [place]). This test has been modified from the weight count operator's instructions. Its performance characteristics were determined by [facility] in a manner consistent with CLIA requirements. This test has not been cleared or approved by the U.S. Food and Drug Administration. 23 RESULT: ISABEL Caruso This test is a direct mutation analysis using PCR amplification, signal generation and release by cleavage of sequence specific alleles ([employer], [place], [place]). This test has been modified from the weight count operator's instructions. Its performance characteristics were determined by [facility] in a manner consistent with CLIA requirements. This test has not been cleared or approved by the U.S. Food and Drug Administration. Test Performed by: [address] [address] Plant And Maintenance Technician: Dutch Jarrett M.D. Ph.D.; CLIA# [id number] 24 ADDITIONAL INFORMATION This test was developed and its performance characteristics determined by [facility] in a manner consistent with CLIA requirements. This test has not been cleared or approved by the U.S. Food and Drug Administration. 25 ADDITIONAL INFORMATION This test was developed and its performance characteristics determined by [facility] in a manner consistent with CLIA requirements. This test has not been cleared or approved by the U.S. Food and Drug Administration. Test Performed by: [facility] [address] [place] [address] Plant And Maintenance Technician: Dutch Jarrett M.D. Ph.D.; CLIA# [id number] Procedures Date Code Description Status 02/04/2019 09716 Holter Monitor Review (24 hr)dr review & interp only Completed 01/23/2019 25299 ECHO Transthoracic, Real-Time 2D With Doppler And Color Completed Flow 01/23/2019 26145 ECHO Transthoracic, Real-Time 2D With Doppler And Color Completed Flow 01/23/2019 53618 ECG Monitor/Recording W/Visual Superimposition Scanning Completed 01/17/2019 90340 EKG Tracing & Interpretation Completed Medical Devices Description No Information Available Encounters Type Date Location Provider Dx Diagnosis Office Visit 05/06/2019 [facility] Marisela Baker NP R53.83 Other fatigue 2:00p [facility] K59.00 Constipation, unspecified E72.12 Methylenetetrahydrofolate reductase deficiency Office Visit 02/17/2019 3:40p [facility] Azalia Bazan, R00.0 Tachycardia, [facility] M.D. unspecified R00.2 Palpitations Office Visit 01/28/2019 11:00a [facility] Marisela Baker, K59.00 Constipation, [facility] KNOBBER unspecified R53.83 Other fatigue F31.9 Bipolar disorder, unspecified Office Visit 01/17/2019 3:00p [facility] Azalia Bazan R00.2 Palpitations [facility] M.D. R00.0 Tachycardia, unspecified Assessments Date Code Description Provider 07/01/2019 F31.9 Bipolar disorder, unspecified Twyla Sandoval MD 07/01/2019 R53.83 Other fatigue Twyla Sandoval MD 07/01/2019 G40.89 Other seizures Twyla Sandoval MD 05/06/2019 R53.83 Other fatigue Marisela Baker NP 05/06/2019 K59.00 Constipation, unspecified Marisela Baker NP 05/06/2019 E72.12 Methylenetetrahydrofolate reductase deficiency Marisela Baker NP 02/17/2019 R00.0 Tachycardia, unspecified Azalia Bazan M.D. 02/17/2019 R00.2 Palpitations Azalia Bazan M.D. 02/04/2019 R00.0 Tachycardia, unspecified Azalia Bazan M.D. 01/28/2019 K59.00 Constipation, unspecified Marisela Baker, KNOBBER 01/28/2019 R53.83 Other fatigue Marisela Baker, KNOBBER 01/28/2019 F31.9 Bipolar disorder, unspecified Marisela Baker, KNOBBER 01/23/2019 R00.0 Tachycardia, unspecified Nurse Visit IC 01/23/2019 R00.0 Tachycardia, unspecified Azalia Bazan M.D. 01/23/2019 R00.0 Tachycardia, unspecified Ica ECHO Schedule 01/17/2019 R00.2 Palpitations Azalia Bazan M.D. 01/17/2019 R00.0 Tachycardia, unspecified Azalia Bazan M.D. Plan of Treatment Future Appointment(s):09/02/2019 1:20 pm - [facility] Twyla Sandoval MDF31.9 Bipolar disorder, ubguojryxzqY90.83 Other fatigueFollow up:F/U ghufvuY81.89 Other seizures Functional Status Description No Information Available Mental Status Description No Information Available Referrals Description No Information Available
--- OUTSIDE RECORDS SUMMARY | 2019-08-14 12:17 | XMS REPORT | Continuity of Care Document ---
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 Onset: 12/15/2015 Social History Type Date Description Comments Sex Unknown Tobacco Use Start: Unknown Light tobacco smoker (10 or fewer cigarettes/day) ETOH Use Drinks Alcoholic Beverages Rarely Recreational Drug Use Denies Drug Use Tobacco Use Start: Unknown Patient is a current smoker, smokes some days Smoking Status Reviewed: 07/24/19 Patient is a current smoker, smokes some [...] (52 MG) with progestrone Unknown 20mcg/24HR IUD Probiotic 1 by mouth every Unknown Capsules day Magnesium Oxide 1 by mouth every Unknown 250mg day Tablets Clozapine 1/2 by mouth at at Unknown 100mg bedtime=50mg at Tablets night Immunizations Description No Information Available Vital Signs Date Vital Result Comment 07/24/2019 11:14am Height 64 inches 5'4" Weight 178.00 lb Heart Rate 74 /min BP Systolic Sitting 126 mmHg BP Diastolic Sitting 73 mmHg Body Temperature 99.0 F O2 % BldC Oximetry 97 % BMI (Body Mass Index) 30.6 kg/m2 07/01/2019 4:18pm Height 64 inches 5'4" Weight 179.00 lb Heart Rate 90 /min BP Systolic Sitting 127 mmHg BP Diastolic Sitting 74 mmHg Body Temperature 98.1 F O2 % BldC Oximetry 97 % BMI (Body Mass Index) 30.7 kg/m2 Results Test Acquired Date Facility Test Result H/L Range Note Laboratory test 07/24/2019 [facility] Influenza A & <pending> finding [address] [place] [address] [phone] CBC Auto Diff 02/17/2019 [facility] White Blood 7.6 Normal 3.5 -10.[address] Count 10^3/[place] [address] [phone] Red Blood Count 4.31 10^6/uL Normal 3.70-4.87 [...] Red Blood Cells % 0.1 Laboratory 02/17/2019 [facility] TSH (Thyroid 3.11 Normal 0.34 -5.[address] Stim Horm) mcIU/[place] [address] [phone] Free T4 (Free Thyroxine) 0.69 ng/dL Normal 0.61-1.12 Thyroxine 5.85 g/dL Low 6.09-12.23 T3 Free 3.50 pg/mL Normal 2.5-3.9 T3 Total 112 ng/dL Normal 87-178 Thyroperoxidase AB 112.90 IU/mL High <9 Folic Acid (Folate) 8.40 ng/mL >3.99 Insulin Level 15.2 mcIU/mL Normal 2.0-16.0 Vitamin B12 602 pg/mL Normal 180-914 1 Comp Metabolic 02/17/2019 [facility] Sodium 140 mmol/L Normal 135-[address] [place] [address] [phone] Potassium 4.2 mmol/L Normal 3.5-5.0 Chloride 106 [...] Egfr 102.0 >60 2 Laboratory test 02/17/2019 [facility] C Reactive 7.07 mg/L Normal <8.[address] [place] [address] [phone] CRP High Sensitivity 5.94 mg/L High <2.00 Vitamin D Total 25(Oh) 26.2 ng/mL Normal 20-50 3 Thyroglobulin AB 2.4 IU/mL <4.0 Hemoglobin A1c (Glyco HGB) 5.1 % Normal 4.0-5.6 4 Homocysteine 10 mcmol/L 5 Copper, Serum 1.29 g/mL 0.75-1.45 6 Zinc Serum 0.76 g/mL 0.66-1.10 7 Heavy Metal Blool 02/17/2019 [facility] Arsenic 1 ng/mL 0-[address] [place] [address] [phone] Lead <1.0 g/dL 0.0-4.9 9 Mercury 2 ng/mL 0-9 10 Cadmium <0.2 ng/mL 0.0-4.[address] Address See Comment [address] [facility] [address] [facility] Guardian First Name YOLANDA Hawley Guardian Last Name ABDOULAYE Venous/Capillary Heavy Metals Venous Patient Race UNK Submitting Laboratory 13 Transglutaminase Igg 02/17/2019 [facility] Tissue <1.2 [address] Transglutaminase IgA U/[place] [address] Ab [phone] Tissue Transglutaminase IgG Ab <1.2 U/mL 15 Laboratory test 02/17/2019 [facility] T3 Reverse 17 ng/dL 10- [address] [place] [address] [phone] Celiac Hla 02/17/2019 [facility] Hla-Dqa1 SEE BELOW [address] [place] [address] [phone] Hla-DQB1 SEE BELOW 18 Celiac Gene Pairs Present? 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 Please refer to [employer] diabetic care guidelines for further information. 5 REFERENCE VALUE <=13 (Fasting) ADDITIONAL INFORMATION This test was developed and its performance characteristics determined by [facility] in a manner consistent with CLIA requirements. This test has not been cleared or approved by the U.S. Food and Drug Administration. Test Performed by: [facility] - [address] [address] Director Ehs: Dutch Jarrett M.D. Ph.D.; CLIA# [id number] 6 ADDITIONAL INFORMATION This test was developed and its performance characteristics determined by [facility] in a manner consistent with CLIA requirements. This test has not been cleared or approved by the U.S. Food and Drug Administration. Test Performed by: [facility] [place] [address] Director Ehs: Dutch Jarrett M.D. Ph.D.; CLIA# [id number] 7 ADDITIONAL INFORMATION This test was developed and its performance characteristics determined by [facility] in a manner consistent with CLIA requirements. This test has not been cleared or approved by the U.S. Food and Drug Administration. Test Performed by: [facility] [place] [address] Director Ehs: Dutch Jarrett M.D. Ph.D.; CLIA# [id number] 8 ADDITIONAL INFORMATION This test was developed and its performance characteristics determined by [facility] in a manner consistent with CLIA requirements. This test has not been cleared or approved by the U.S. Food and Drug Administration. 9 ADDITIONAL INFORMATION Testing performed by Inductively Coupled Plasma-Mass Spectrometry (ICP-MS). This test was developed and its performance characteristics determined by [facility] in a manner consistent with CLIA requirements. This test has not been cleared or approved by the U.S. Food and Drug Administration. 10 ADDITIONAL INFORMATION This test was developed and its performance characteristics determined by [facility] in a manner consistent with CLIA requirements. This test has not been cleared or approved by the U.S. Food and Drug Administration. 11 ADDITIONAL INFORMATION This test was developed and its performance characteristics determined by [facility] in a manner consistent with CLIA requirements. This test has not been cleared or approved by the U.S. Food and Drug Administration. 12 RESULT: [address] BOTTOM FLOOR 13 Test Performed by: [facility] [place] [address] Director Ehs: Dutch Jarrett M.D. Ph.D.; CLIA# [id number] 14 REFERENCE VALUE <4.0 (Negative) 15 REFERENCE VALUE <6.0 (Negative) Test Performed by: [facility] [place] [address] Director Ehs: Dutch Jarrett M.D. Ph.D.; CLIA# [id number] 16 ADDITIONAL INFORMATION This test was developed and its performance characteristics determined by [facility] in a manner consistent with CLIA requirements. This test has not been cleared or approved by the U.S. Food and Drug Administration. Test Performed by: [facility] [place] [address] Director Ehs: Dutch Jarrett M.D. Ph.D.; CLIA# [id number] 17 RESULT: 02:01,03 REFERENCE VALUE Not Applicable [...] medium resolution molecular values. Test Performed by: [place] [address] Director Ehs: Dutch Jarrett M.D. Ph.D.; CLIA# [id number] 20 This individual DOES have the Methylenetetrahydrofolate [...] therapy). If clinically indicated, suggest Coagulation Consultation 31090 (Thrombophila Profile) to complete the evaluation for an inherited or acquired thrombosing disorder (i.e., thrombophilia). Consider genetic consultation and counseling of potentially affected family members regarding laboratory testing. ADDITIONAL INFORMATION This test is a direct mutation analysis using PCR amplification, signal generation and release by cleavage of sequence specific alleles ([employer], [employer], [place], [place]). This test has been modified from the decorator store's instructions. Its performance characteristics were determined by [facility] in a manner consistent with CLIA requirements. This test has not been cleared or approved by the U.S. Food and Drug Administration. 21 RESULT: ISABEL Caruso 22 This individual DOES NOT have the Methylenetetrahydrofolate reductase (MTHAC) R0600B gene mutation. In the absence of the MTHAC E9869C gene mutation, other causes of hyperhomocysteinemia should be considered (renal failure, zinc deficiency, leukemia, psoriasis, or antifolate drug therapy). If clinically indicated, suggest Coagulation Consultation 44098 (Thrombophilia Profile) to complete the evaluation for an inherited or acquired thrombosing disorder (i.e., thrombophilia). Consider genetic consultation and counseling of potentially affected family members regarding laboratory testing. ADDITIONAL INFORMATION This test is a direct mutation analysis using PCR amplification, signal generation and release by cleavage of sequence specific alleles ([employer], [employer], [place], [place]). This test has been modified from the decorator store's instructions. Its performance characteristics were determined by [facility] in a manner consistent with CLIA requirements. This test has not been cleared or approved by the U.S. Food and Drug Administration. 23 RESULT: ISABEL Caruso This test is a direct mutation analysis using PCR amplification, signal generation and release by cleavage of sequence specific alleles ([employer], [employer], [place]). This test has been modified from the decorator store's instructions. Its performance characteristics were determined by [facility] in a manner consistent with CLIA requirements. This test has not been cleared or approved by the U.S. Food and Drug Administration. Test Performed by: [facility] - [address] [address] Director Ehs: Dutch Jarrett M.D. Ph.D.; CLIA# [id number] 24 ADDITIONAL INFORMATION This test was developed and its performance characteristics determined by [facility] in a manner consistent with CLIA requirements. This test has not been cleared or approved by the U.S. Food and Drug Administration. 25 ADDITIONAL INFORMATION This test was developed and its performance characteristics determined by [facility] in a manner consistent with CLIA requirements. This test has not been cleared or approved by the U.S. Food and Drug Administration. Test Performed by: [facility] - [facility] [address] [place] [address] Director Ehs: Dutch Jarrett M.D. Ph.D.; CLIA# [id number] Procedures Date Code Description Status 02/04/2019 10708 Holter Monitor Review (24 hr)dr review & interp only Completed 01/23/2019 34603 ECHO Transthoracic, Real-Time 2D With Doppler And Color Completed Flow 01/23/2019 79566 ECHO Transthoracic, Real-Time 2D With Doppler And Color Completed Flow 01/23/2019 12463 ECG Monitor/Recording W/Visual Superimposition Scanning Completed Medical Devices Description No Information Available Encounters Type Date Location Provider Dx Diagnosis Office Visit 07/01/2019 [facility] Internal Twyla Sandoval MD F31.9 Bipolar disorder, 4:20p Medicine - Ccmob unspecified R53.83 Other fatigue G40.89 Other seizures Office Visit 05/06/2019 2:00p [facility] Marisela Baker, R53.83 Other fatigue [facility] [employer] K59.00 Constipation, unspecified E72.12 Methylenetetrahydrofolate reductase deficiency Office Visit 02/17/2019 3:40p [facility] Azalia Drewer, R00.0 Tachycardia, Of [facility] Hattie unspecified R00.2 Palpitations Office Visit 01/28/2019 11:00a [facility] Marisela Baker, K59.00 Constipation, [facility] [employer] unspecified R53.83 Other fatigue F31.9 Bipolar disorder, unspecified Assessments Date Code Description Provider 07/24/2019 J06.9 Acute upper respiratory infection, unspecified Twyla Sandoval MD 07/01/2019 F31.9 Bipolar disorder, unspecified Twyla Sandoval MD 07/01/2019 R53.83 Other fatigue Twyla Sandoval MD 07/01/2019 G40.89 Other seizures Twyla Sandoval MD 05/06/2019 R53.83 Other fatigue Marisela Baker NP 05/06/2019 K59.00 Constipation, unspecified Marisela Baker NP 05/06/2019 E72.12 Methylenetetrahydrofolate reductase deficiency Marisela Baker, GEORGE 02/17/2019 R00.0 Tachycardia, unspecified Azalia Bazan M.D. 02/17/2019 R00.2 Palpitations Azalia Bazan M.D. 02/04/2019 R00.0 Tachycardia, unspecified Azalia Bazan M.D. 01/28/2019 K59.00 Constipation, unspecified Marisela Baker, [employer] 01/28/2019 R53.83 Other fatigue Marisela Baker, GEORGE 01/28/2019 F31.9 Bipolar disorder, unspecified Marisela Baker, [employer] 01/23/2019 R00.0 Tachycardia, unspecified Nurse Visit IC 01/23/2019 R00.0 Tachycardia, unspecified Azalia Bazan M.D. 01/23/2019 R00.0 Tachycardia, unspecified Ica ECHO Schedule Plan of Treatment Future Appointment(s):09/25/2019 4:20 pm - Twyla Sandoval MD at [facility] Internal Medicine - [facility]07/24/2019 - Twyla Sandoval MDJ06.9 Acute upper respiratory infection, unspecified Functional Status Description No Information Available Mental Status Description No Information Available Referrals Description No Information Available
--- NOTE | 2019-08-14 12:34 | UC ---
Respiratory Complaint HPI - HPI Summary HPI Summary: CHIEF COMPLAINT: cough; sinusitis hx; worried about Covid 19. HPI: This is a 28-year-old complaining of frequent cough the last week. She also complains of intermittent fever as well as myalgias and diarrhea. She was put on Zithromax on 07/24/19 4 sinusitis. She complains of continued symptoms including discharge from the nose and mild maxillary discomfort. Description of Pain: Mild sinus. VITAL SIGNS REVIEWED. Within normal limits unless noted here. NURSES NOTE REVIEWED. - History of Current Complaint Stated Complaint: SORE THROAT COUGH HEAD CONGESTION Time Seen by Provider: 08/14/19 12:24 Hx Obtained From: Patient ?: No - Allergies/Home Medications Allergies/Adverse Reactions: Allergies Allergy/AdvReac Type Severity Reaction Status Date / Time Penicillins Allergy Unknown See Comment Verified 11/16/17 09:02 risperidone [From Risperdal] Allergy Unknown See Comment Verified 11/16/17 09:02 diphenhydramine Allergy Shakes Verified 11/16/17 09:02 Home Medications: Home Medications Azithromycin TAB* [Zithromax TAB*] 250 mg PO DAILY #6 tab MDD 2 08/14/19 [Rx] PMH/Surg Hx/FS Hx/Imm Hx - Additional Past Medical History Additional PMH: PAST MEDICAL HISTORY- CHRONIC and RECURRENT HEALTH PROBLEM LIST REVIEWED. Information relevant to present complaint: VISIT HISTORY REVIEWED. MEDICATIONS & ALLERGIES REVIEWED. HYPERTENSION STATUS: no meds. FAMILY HISTORY: Positive for: hypertension, cardiovascular disease, stroke, cancer. SOCIAL HISTORY: Smoker: no occ ETOH Home: alone Employment: in home Previously Healthy: No - significant psychiatric history Other History Of: Negative For: Anticoagulant Therapy - Surgical History Surgical History: Yes Surgery Procedure, Year, and Place: 09/2011 wisdom teeth. 11/2011 [facility] - Pilonidal cystectomy - Family History Known Family History: Negative: Diabetes, Respiratory Disease, Seizure Disorder - Social History Alcohol Use: None Substance Use Type: None Smoking Status (MU): Never Smoked Tobacco Have You Smoked in the Last Year: No - Stated last use was a year ago Household Exposure Type: Cigars - Immunization History Most Recent Influenza Vaccination: none Most Recent Tetanus Shot: UNKNOWN Most Recent Pneumonia Vaccination: UNKNOWN Review of Systems All Other Systems Reviewed And Are Negative: Yes Skin: Positive: Negative ENT: Positive: Sinus Congestion, Sinus Pain/Tenderness Respiratory: Positive: Cough Cardiovascular: Positive: Negative Gastrointestinal: Positive: Negative Is Patient Immunocompromised?: No Physical Exam - Summary Physical Exam Summary: Appearance: The patient is well-appearing, is in no pain or distress, and is well-nourished. There is an intermittent, non-productive cough. Eyes: Conjunctiva are clear. Pupils are equal and reactive to light and accommodation. Extra ocular muscle movement is intact. ENT: The hearing is grossly normal, the pharynx is normal, and the TMs are normal. There is no muffled or hoarse voice. No stridor. Mild maxillary tenderness to palpation. Neck: The neck is supple and there is no lymphadenopathy. Respiratory: The chest is non-tender to palpation and without crepitus. The lungs are clear, there are normal breath sounds, and there is no respiratory distress. No wheezes, rales or rhonchi. Cardiovascular: Heart sounds reveal a regular rate and rhythm. There are no clicks, rubs or murmurs. There are no carotid bruits or thrills. Circulation is grossly intact. Abdomen: The abdomen is soft and nontender. There is no organomegaly. Bowel sounds are present and within normal limits. No point tenderness at McBurneys point. No CVA tenderness. Musculoskeletal: Strength is intact. The patient moves all extremities. Neurological: The patient is alert. Motor and sensory are examination grossly intact. Speech is normal. Psychological: The patient displays age appropriate behavior, and is conversant. GCS=15. Skin: Negative for rashes. Laboratory Results - last 24 hr 08/14/19 12:53 Group A Strep Rapid Negative Triage Information Reviewed: Yes Vital Signs Reviewed: Yes Respiratory Course/Dx - Course Course Of Treatment: 28 year old female with one week hx of intermittent fever, body aches, diarrhea and cough. Tested 2 weeks ago when was negative for influenza. Treated with zithromax for sinusitis in June. Continued discomfort. Requests Covid 19 because of exposure to someone who had secondary exposure to a positive Covid 19 treatment. Physical examination is negative for shortness of breath or chest pain. Tender maxillary sinus. Dx is sinusitis; cough. Covid 19 testing. Patient will follow with self-quarantine. - Differential Dx/Diagnosis Differential Diagnosis/HQI/PQRI: Laryngitis, Lower Resp Infection, Sinusitis, Other - Covid 19 Provider Diagnosis: Sinusitis Discharge ED - Sign-Out/Discharge Documenting (check all that apply): Patient Departure All imaging exams completed and their final reports reviewed: No Studies - Discharge Plan Condition: Stable Disposition: HOME Prescriptions: Azithromycin TAB* [Zithromax TAB*] 250 mg PO DAILY #6 tab MDD 2 Patient Education Materials: Sinusitis (ED) Referrals: Twyla Sandoval MD [Primary Care Provider] - Additional Instructions: WE DISCUSSED: PLEASE SEEK CARE AT THE EMERGENCY DEPARTMENT IF SYMPTOMS WORSEN OR IF NEW SYMPTOMS DEVELOP. FOLLOW UP WITH YOUR PRIMARY CARE PHYSICIAN IF CONDITION CONTINUES BEYOND 3 DAYS WITHOUT IMPROVEMENT. YOUR DIAGNOSIS IS: sinusitis; continued cough YOUR PRESCRIPTION RECOMMENDATION IS: zithromax OTHER INSTRUCTIONS: FOR PAIN AND/OR SLEEP: For pain: Ibuprofen (Motrin and other brand names) 400-600mg PLUS acetaminophen (Tylenol and other brand names) 500mg - 1000mg every 8 hours. DO NOT TAKE IBUPROFEN IF YOU ARE BEING EVALUATED FOR COVID-19. I recommend using a saline rinse kit such as Netti Pot or NeilMed to help thin secretions and promote drainage. Follow-up with your primary care provider in 7 days if symptoms do not improve. Seek immediate medical attention if you develop a fever greater than 100.5 F, have difficulty breathing, develop chest pain, or any worsening of symptoms. Drink plenty of fluids to avoid dehydration especially if you are running any fever. Use salt water gargles several times a day. Take over the counter acetaminophen (Tylenol) You may also use Chloraseptic spray or Cepacol lonzenges according to directions which contain a numbing medication and can provide some temporary relief from your sore throat. Return here or follow up with your primary care provider in 7 days if symptoms persist. - Billing Disposition and Condition Condition: STABLE Disposition: Home
[2019-08-14 13:10] VITALS: BP 140/75
== END 2019-08-14 13:25 | disposition home or self-care (01) ==
LOC: UCEAST 11:37
DX: J32.9 Chronic sinusitis, unspecified (principal); Z88.0 Allergy status to penicillin; Z88.8 Allergy status to other drugs, medicaments and biological substances
CPT/HCPCS: 87651; 99213; G0463; U0002

== ENCOUNTER 2020-02-18 20:20 | Inpatient (IN) ==
[2020-02-18 23:15] LABS: ABS Basophils 0.1 10^3/ul (0-0.2); ABS Eosinophils 0.1 10^3/ul (0-0.6); ABS Lymphocytes 2.3 10^3/ul (1.0-4.8); ABS Monocytes 1.4 10^3/ul (0-0.8); ABS Neutrophils 8.4 10^3/ul (1.5-7.7); Eosinophil % 1.2 %; Hematocrit 35 % (35-47); Hemoglobin 12.6 g/dL (12.0-16.0); Lymphocyte % 18.9 %; Mean Corpuscular HGB Conc 36 g/dL (31-36); Mean Corpuscular Hemoglobin 32 pg (27-31); Mean Corpuscular Volume 91 fL (80-97); Mean Platelet Volume 9.1 fL (7.4-10.4); Platelet Count 240 10^3/uL (150-450); Red Blood Count 3.88 10^6 /uL (3.70-4.87); Red Cell Distribution Width 14 % (10-15); White Blood Count 12.3 10^3/uL (3.5-10.8)
[2020-02-18 23:33] LABS: ALT 12 U/L (7-52); AST 17 U/L (13-39); Albumin 4.6 g/dL (3.2-5.2); Albumin/Globulin Ratio 1.6 (1-3); Alkaline Phosphatase 86 U/L (34-104); Anion Gap 9 mmol/L (2-11); BUN/Creatinine Ratio 15.1 (8-20); Blood Urea Nitrogen 14 mg/dL (6-24); CO2 Carbon Dioxide 25 mmol/L (22-32); Calcium 9.5 mg/dL (8.6-10.3); Chloride 104 mmol/L (101-111); EGFR African American 87.5 (>60); EGFR Non-African American 72.3 (>60); Globulin 2.8 g/dL (2-4); Glucose 89 mg/dL (70-100); Potassium 3.3 mmol/L (3.5-5.0); Sodium 138 mmol/L (135-145); Total Protein 7.4 g/dL (6.4-8.9)
[2020-02-18 23:39] LABS: HCG Pregnancy < 0.60 mIU/mL
[2020-02-19 00:03] LABS: Acetaminophen < 15 mcg/mL; Alcohol, S < 10 mg/dL (<10); Salicylate < 2.50 mg/dL (<30)
[2020-02-19 00:18] LABS: TSH Ultra Thyroid Stim Horm 4.07 mcIU/mL (0.34-5.60)
[2020-02-19] MEDS ORDERED: Al Hydrox/Mg Hydrox/Simet LIQ 30 ML UDC PO PRN (02:04)
[2020-02-19] MEDS: Vitamin THERAPEUTIC TAB PO SCH (13:15)
[2020-02-19] MEDS ORDERED: Potassium Chlor 20 meq TAB.ER PO ONE (14:42)
[2020-02-20] MEDS: Vitamin THERAPEUTIC TAB PO SCH (08:47)
[2020-02-21] MEDS: Vitamin THERAPEUTIC TAB PO SCH (09:16)
[2020-02-21 09:36] LABS: HDL Cholesterol 35.1 mg/dL
[2020-02-22] MEDS: Vitamin THERAPEUTIC TAB PO SCH (09:31)
[2020-02-23] MEDS: Vitamin THERAPEUTIC TAB PO SCH (09:26)
[2020-02-24 00:58] LABS: Clozapine 141 ng/mL (350-600); Clozapine & Norclozapine Level 202 ng/mL; Norclozapine 61 ng/mL
[2020-02-24] MEDS: Vitamin THERAPEUTIC TAB PO SCH (11:28)
[2020-02-25] MEDS: Vitamin THERAPEUTIC TAB PO SCH (12:41)
[2020-02-26] MEDS: Vitamin THERAPEUTIC TAB PO SCH (11:16)
[2020-02-27] MEDS: Vitamin THERAPEUTIC TAB PO SCH (08:26)
[2020-02-28] MEDS: Vitamin THERAPEUTIC TAB PO SCH (11:14)
[2020-02-29] MEDS: Vitamin THERAPEUTIC TAB PO SCH (09:47)
[2020-03-01] MEDS: Vitamin THERAPEUTIC TAB PO SCH (12:20)
[2020-03-02] MEDS: Vitamin THERAPEUTIC TAB PO SCH (09:40)
[2020-03-03 07:43] LABS: ABS Basophils 0.1 10^3/ul (0-0.2); ABS Eosinophils 0.2 10^3/ul (0-0.6); ABS Neutrophils 4.8 10^3/ul (1.5-7.7); Hematocrit 41 % (35-47); Hemoglobin 13.9 g/dL (12.0-16.0); Lymphocyte % 24.9 %; Mean Corpuscular HGB Conc 34 g/dL (31-36); Mean Corpuscular Hemoglobin 32 pg (27-31); Mean Corpuscular Volume 94 fL (80-97); Mean Platelet Volume 9.7 fL (7.4-10.4); Platelet Count 245 10^3/uL (150-450); Red Blood Count 4.39 10^6 /uL (3.70-4.87); Red Cell Distribution Width 14 % (10-15); White Blood Count 8.1 10^3/uL (3.5-10.8)
[2020-03-03] MEDS: Vitamin THERAPEUTIC TAB PO SCH (08:23)
[2020-03-04] MEDS: Vitamin THERAPEUTIC TAB PO SCH (09:34)
[2020-03-10 11:16] LABS: ABS Eosinophils 0.2 10^3/ul (0-0.6); ABS Lymphocytes 1.6 10^3/ul (1.0-4.8); ABS Monocytes 0.6 10^3/ul (0-0.8); ABS Neutrophils 5.3 10^3/ul (1.5-7.7); Eosinophil % 2.4 %; Hematocrit 41 % (35-47); Hemoglobin 13.8 g/dL (12.0-16.0); Mean Corpuscular HGB Conc 34 g/dL (31-36); Mean Corpuscular Hemoglobin 31 pg (27-31); Mean Corpuscular Volume 92 fL (80-97); Mean Platelet Volume 8.3 fL (7.4-10.4); Nucleated Red Blood Cells % 0.1; Platelet Count 253 10^3/uL (150-450); Red Blood Count 4.44 10^6 /uL (3.70-4.87); Red Cell Distribution Width 13 % (10-15); White Blood Count 7.7 10^3/uL (3.5-10.8)
[2020-03-15] MEDS ORDERED: Senna TAB 8.6 mg TAB PO PRN (10:38)
[2020-03-17 09:03] LABS: ABS Basophils 0.1 10^3/ul (0-0.2); ABS Eosinophils 0.2 10^3/ul (0-0.6); ABS Lymphocytes 1.6 10^3/ul (1.0-4.8); ABS Monocytes 0.9 10^3/ul (0-0.8); ABS Neutrophils 6.6 10^3/ul (1.5-7.7); Eosinophil % 2.6 %; Hematocrit 42 % (35-47); Hemoglobin 13.7 g/dL (12.0-16.0); Lymphocyte % 17.3 %; Mean Corpuscular HGB Conc 33 g/dL (31-36); Mean Corpuscular Hemoglobin 31 pg (27-31); Mean Corpuscular Volume 94 fL (80-97); Mean Platelet Volume 9.1 fL (7.4-10.4); Platelet Count 263 10^3/uL (150-450); Red Blood Count 4.46 10^6 /uL (3.70-4.87); Red Cell Distribution Width 13 % (10-15); White Blood Count 9.4 10^3/uL (3.5-10.8)
[2020-03-19 09:29] VITALS: BP 125/80
== END 2020-03-19 13:05 | DRG 753 ==
LOC: ED 20:20 → BSU 02-19 00:12
PROVIDERS: ADMIT Psychiatry & Neurology Psychiatry; ATTEND Psychiatry & Neurology Psychiatry

== ENCOUNTER 2021-03-18 19:10 | Inpatient (IN) ==
[2021-03-19 03:02] LABS: ABS Lymphocytes 1.6 10^3/ul (1.0-4.8); ABS Monocytes 1.5 10^3/ul (0-0.8); ABS Neutrophils 7.8 10^3/ul (1.5-7.7); Eosinophil % 0.4 %; Hematocrit 43 % (35-47); Hemoglobin 14.6 g/dL (12.0-16.0); Lymphocyte % 14.3 %; Mean Corpuscular HGB Conc 34 g/dL (31-36); Mean Corpuscular Hemoglobin 31 pg (27-31); Mean Corpuscular Volume 92 fL (80-97); Mean Platelet Volume 9.5 fL (7.4-10.4); Platelet Count 223 10^3/uL (150-450); Red Blood Count 4.66 10^6 /uL (3.70-4.87); Red Cell Distribution Width 13 % (10-15)
[2021-03-19 03:17] LABS: ALT 10 U/L (7-52); AST 17 U/L (13-39); Albumin 4.9 g/dL (3.2-5.2); Albumin/Globulin Ratio 1.8 (1-3); Alkaline Phosphatase 53 U/L (35-149); Anion Gap 8 mmol/L (2-11); Blood Urea Nitrogen 16 mg/dL (6-24); CO2 Carbon Dioxide 26 mmol/L (22-32); Calcium 10.2 mg/dL (8.6-10.3); Chloride 105 mmol/L (101-111); Globulin 2.8 g/dL (2-4); Glucose 99 mg/dL (70-100); Potassium 3.8 mmol/L (3.5-5.0); Sodium 139 mmol/L (135-145); Total Protein 7.7 g/dL (6.4-8.9)
[2021-03-19 03:25] LABS: Acetaminophen < 15 mcg/mL; Alcohol, S < 13 mg/dL (<13); Salicylate < 2.50 mg/dL (<30)
[2021-03-19 03:40] LABS: TSH Ultra Thyroid Stim Horm 5.51 mcIU/mL (0.34-5.60)
[2021-03-19 04:07] LABS: Rapid COVID-19 Molecular Undetected (Undetected)
[2021-03-19] MEDS ORDERED: Al Hydrox/Mg Hydrox/Simet LIQ 30 ML UDC PO PRN (06:02)
[2021-03-19] MEDS: Vitamin THERAPEUTIC TAB PO SCH (10:28)
[2021-03-20] MEDS: Vitamin THERAPEUTIC TAB PO SCH (08:02)
[2021-03-20 08:24] LABS: HDL Cholesterol 43.7 mg/dL
[2021-03-21] MEDS: Vitamin THERAPEUTIC TAB PO SCH (08:37)
[2021-03-22] MEDS: Vitamin THERAPEUTIC TAB PO SCH (08:41)
[2021-03-22 15:56] LABS: TSH Ultra Thyroid Stim Horm 3.8 mcIU/mL (0.34-5.60)
[2021-03-22 15:58] LABS: Free T3 3.1 pg/mL (2.5-3.9)
[2021-03-22 16:04] LABS: Free T4 1.11 ng/dL (0.61-1.12)
[2021-03-23] MEDS: Vitamin THERAPEUTIC TAB PO SCH (08:44)
[2021-03-24] MEDS: Vitamin THERAPEUTIC TAB PO SCH (09:18)
[2021-03-24] MEDS: OLANzapine 5 mg TAB*ODT PO PRN (13:04)
[2021-03-25] MEDS: Vitamin THERAPEUTIC TAB PO SCH (10:13)
[2021-03-26] MEDS: Vitamin THERAPEUTIC TAB PO SCH (09:13)
[2021-03-27] MEDS: Vitamin THERAPEUTIC TAB PO SCH (08:59)
[2021-03-28] MEDS: Vitamin THERAPEUTIC TAB PO SCH (08:38)
[2021-03-29] MEDS: Vitamin THERAPEUTIC TAB PO SCH (08:35)
[2021-03-30] MEDS: Vitamin THERAPEUTIC TAB PO SCH (08:41)
[2021-03-30] MEDS: OLANzapine 5 mg TAB*ODT PO PRN (11:13)
[2021-03-31] MEDS: Vitamin THERAPEUTIC TAB PO SCH (07:56)
[2021-04-01] MEDS: Vitamin THERAPEUTIC TAB PO SCH (10:14)
[2021-04-02] MEDS: Vitamin THERAPEUTIC TAB PO SCH (08:38)
[2021-04-03] MEDS: Vitamin THERAPEUTIC TAB PO SCH (07:38)
[2021-04-04] MEDS: Vitamin THERAPEUTIC TAB PO SCH (09:38)
[2021-04-05] MEDS: Vitamin THERAPEUTIC TAB PO SCH (09:44)
[2021-04-06] MEDS: Vitamin THERAPEUTIC TAB PO SCH (09:02)
[2021-04-07] MEDS: Vitamin THERAPEUTIC TAB PO SCH (08:18)
[2021-04-08] MEDS: Vitamin THERAPEUTIC TAB PO SCH (08:35)
[2021-04-09] MEDS: Vitamin THERAPEUTIC TAB PO SCH (08:58)
[2021-04-10] MEDS: Vitamin THERAPEUTIC TAB PO SCH (09:36)
[2021-04-11] MEDS: Vitamin THERAPEUTIC TAB PO SCH (08:41)
[2021-04-12] MEDS: Vitamin THERAPEUTIC TAB PO SCH (08:23)
[2021-04-12 08:57] VITALS: BP 135/76
[2021-04-12 09:33] LABS: Rapid COVID-19 Molecular Undetected (Undetected)
== END 2021-04-12 09:45 | disposition short-term general hospital (02) | DRG 750 ==
LOC: ED 19:10 → BSU 03-19 05:45
PROVIDERS: ADMIT Psychiatry & Neurology Psychiatry; ATTEND Psychiatry & Neurology Psychiatry

== ENCOUNTER 2021-10-08 12:12 | Inpatient (IN) ==
[2021-10-08 13:01] LABS: ABS Eosinophils 0.1 10^3/ul (0-0.6); ABS Lymphocytes 1.2 10^3/ul (1.0-4.8); ABS Monocytes 0.8 10^3/ul (0-0.8); ABS Neutrophils 4.6 10^3/ul (1.5-7.7); Eosinophil % 1.4 %; Hematocrit 38 % (35-47); Hemoglobin 12.6 g/dL (12.0-16.0); Lymphocyte % 18.2 %; Mean Corpuscular HGB Conc 33 g/dL (31-36); Mean Corpuscular Hemoglobin 31 pg (27-31); Mean Corpuscular Volume 94 fL (80-97); Mean Platelet Volume 8.3 fL (7.4-10.4); Platelet Count 186 10^3/uL (150-450); Red Blood Count 4.04 10^6 /uL (3.70-4.87); Red Cell Distribution Width 13 % (10-15); White Blood Count 6.7 10^3/uL (3.5-10.8)
[2021-10-08 13:02] LABS: Urine Appearance Clear; Urine Bilirubin Negative (Negative); Urine Blood Negative (Negative); Urine Color Yellow; Urine Glucose Negative (Negative); Urine Ketones Negative (Negative); Urine Nitrite Negative (Negative); Urine Protein Negative (Negative); Urine Specific Gravity 1.016 (1.002-1.030); Urine Urobilinogen Negative (Negative)
[2021-10-08 13:21] LABS: Urine Benzodiazepine Screen None Detected (None Detect); Urine Cannabinoids Screen None Detected (None Detect); Urine Opiates Screen None Detected (None Detect)
[2021-10-08 13:23] LABS: ALT 44 U/L (7-52); AST 132 U/L (13-39); Acetaminophen < 15 mcg/mL; Albumin 4.6 g/dL (3.2-5.2); Albumin/Globulin Ratio 1.8 (1-3); Alcohol, S < 13 mg/dL (<13); Alkaline Phosphatase 53 U/L (35-149); Anion Gap 10 mmol/L (2-11); Blood Urea Nitrogen 9 mg/dL (6-24); CO2 Carbon Dioxide 27 mmol/L (22-32); Calcium 9.4 mg/dL (8.6-10.3); Chloride 104 mmol/L (101-111); Globulin 2.5 g/dL (2-4); Glucose 107 mg/dL (70-100); Potassium 3.5 mmol/L (3.5-5.0); Salicylate < 2.50 mg/dL (<30); Sodium 141 mmol/L (135-145); Total Protein 7.1 g/dL (6.4-8.9); eGFR CKD-EPI 68.3 (>60)
[2021-10-08] MEDS ORDERED: Al Hydrox/Mg Hydrox/Simet LIQ 30 ML UDC PO PRN (18:43)
[2021-10-09 08:01] LABS: HDL Cholesterol 45.4 mg/dL
[2021-10-09 08:09] LABS: HCG Pregnancy 1.09 mIU/mL
[2021-10-09 08:14] LABS: T4, Total 5.46 mcg/dL (6.09-12.23)
[2021-10-09] MEDS: Vitamin THERAPEUTIC TAB PO SCH (08:54)
[2021-10-10] MEDS: Vitamin THERAPEUTIC TAB PO SCH (09:20)
[2021-10-10 14:01] LABS: Albumin 4.7 g/dL (3.2-5.2); Calcium 9.8 mg/dL (8.6-10.3); Globulin 2.4 g/dL (2-4); Potassium 4.5 mmol/L (3.5-5.0); Total Bilirubin 0.4 mg/dL (0.2-1.0); Total Protein 7.1 g/dL (6.4-8.9); eGFR CKD-EPI 69.8 (>60)
[2021-10-11] MEDS: Vitamin THERAPEUTIC TAB PO SCH (09:58)
[2021-10-12] MEDS: Vitamin THERAPEUTIC TAB PO SCH (07:05)
[2021-10-13] MEDS: Vitamin THERAPEUTIC TAB PO SCH (08:37)
[2021-10-14] MEDS: Vitamin THERAPEUTIC TAB PO SCH (08:15)
[2021-10-15] MEDS: Vitamin THERAPEUTIC TAB PO SCH (10:02)
[2021-10-16] MEDS: Vitamin THERAPEUTIC TAB PO SCH (08:14)
[2021-10-17] MEDS: Vitamin THERAPEUTIC TAB PO SCH (07:08)
[2021-10-18] MEDS: Vitamin THERAPEUTIC TAB PO SCH (07:27)
[2021-10-19] MEDS: Vitamin THERAPEUTIC TAB PO SCH (07:35)
[2021-10-20] MEDS: Vitamin THERAPEUTIC TAB PO SCH (08:08)
[2021-10-21] MEDS: Vitamin THERAPEUTIC TAB PO SCH (07:50)
[2021-10-22] MEDS: Vitamin THERAPEUTIC TAB PO SCH (07:34)
[2021-10-23] MEDS: Vitamin THERAPEUTIC TAB PO SCH (07:36)
[2021-10-24] MEDS: Vitamin THERAPEUTIC TAB PO SCH (07:20)
[2021-10-25] MEDS: Vitamin THERAPEUTIC TAB PO SCH (07:42)
[2021-10-26] MEDS: Vitamin THERAPEUTIC TAB PO SCH (07:22)
[2021-10-27] MEDS: Vitamin THERAPEUTIC TAB PO SCH (08:01)
[2021-10-28] MEDS: Vitamin THERAPEUTIC TAB PO SCH (07:23)
[2021-10-29] MEDS: Vitamin THERAPEUTIC TAB PO SCH (07:44)
[2021-10-30] MEDS: Vitamin THERAPEUTIC TAB PO SCH (07:12)
[2021-10-31] MEDS: Vitamin THERAPEUTIC TAB PO SCH (07:59)
[2021-11-01] MEDS: Vitamin THERAPEUTIC TAB PO SCH (08:01)
[2021-11-02] MEDS: Vitamin THERAPEUTIC TAB PO SCH (07:45)
[2021-11-03] MEDS: Vitamin THERAPEUTIC TAB PO SCH (07:25)
[2021-11-04] MEDS: Vitamin THERAPEUTIC TAB PO SCH (07:33)
[2021-11-04 07:52] VITALS: BP 143/83
== END 2021-11-04 13:30 | disposition home or self-care (01) | DRG 750 ==
LOC: ED 12:12 → BSU 18:27
PROVIDERS: ADMIT Psychiatry & Neurology Addiction Psychiatry; ATTEND Psychiatry & Neurology Psychiatry